=== PATIENT | female | born 1965 | race Two or more races ===

== ENCOUNTER 2024-08-14 15:24 | Emergency (ER) | payer MEDICAID, SELFPAY ==
[2024-08-14] VITALS (11 sets, daily range): BP systolic 97–179; BP diastolic 63–130; PULSE 108–148; RESP 16–24; TEMP 36.7–38.2; O2SAT 93–99; BMI 61.9
--- NOTE | 2024-08-14 15:54 | XR_ITS ---
Examination: CT lumbar spine, without contrast. 2-D sagittal reconstructions. 2-D coronal reconstructions. 3-D reconstructions. Date and time of exam:August 14, 2024 1558 hours INDICATIONS: Onset lower back pain today CTDI: vol (mGy):56.1 DLP: (mGycm):1895 Technique: Multiple 1.25 mm axial sections of the lumbar spine without intravenous contrast have been obtained. 2-D sagittal and coronal reconstructions have been obtained. 3-D reconstructions have been obtained. Low dose protocols were performed. One or more of the following dose reduction techniques were used; automated exposure control, adjustment of the mA and/or KV according to patient size, use of iterative reconstruction technique. Findings: Severe osteopenia Mild to moderate diffuse lumbar disc narrowing most prominent L2-L3 Grade 1 anterolisthesis L4 on L5 No lumbar vertebral body compression fracture Lumbar pedicles, laminae, transverse and posterior spinous processes intact L5-S1 no disc protrusion L4-L5 2 mm central lumbar disc bulge More cephalad levels unremarkable Incidental note 1 mm right renal calculus and mild to moderate right hydronephrosis IMPRESSION: Diffuse [id number] lumbar degenerative disc disease most prominent L2-L3 1 mm right renal calculus Mild to moderate right hydronephrosis, consider CT scan abdomen pelvis without contrast follow-up
--- NOTE | 2024-08-14 15:54 | EKG_ITS ---
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
--- NOTE | 2024-08-14 15:55 | PD.EDRME ---
Rapid Medical Screening Exam RME Arrival date/time: 08/14/24 15:24 59-year-old female with medical history significant for A-fib presents emergency department complaints of lower back pain nausea and vomiting Chief Complaint: Back Pain/Injury Time Seen by Provider: 08/14/24 15:34
--- NOTE | 2024-08-14 16:21 | PC.NURSE ---
pt. here from home to room 10, pt. states she was outside talking to her neighbor and her lower back pain started pt. states the pain is worse when she is breathing. Pt. states she has vomited X 4 today. No s/s of distress. Pt. states she has a history of asthma, since she was 16.
[2024-08-14] MEDS: METOCLOPRAMIDE INJ 5 MG/ML VIAL 2 ML 10 MG IM (16:30)
[2024-08-14] MEDS: HYDROcodone/APAP 5/325 TABLET 1 TAB PO (16:32)
--- NOTE | 2024-08-14 16:37 | XR_ITS ---
Examination: CT abdomen and pelvis without contrast. Coronal 3-D reconstructions. Sagittal 2-D reconstructions. Date and time of exam:August 14, 2024 1702 hrs. Indications: Right flank pain this week, right hydronephrosis on CT examination of the lumbar spine today CTDI: vol (mGy): 23 DLP: (mGycm): 1495 Technique: Axial images of the abdomen have been obtained, 3 mm slice thickness Intravenous contrast material has not been administered. Low dose protocols were performed. One or more of the following dose reduction techniques were used; automated exposure control, adjustment of the mA and/or KV according to patient size, use of iterative reconstruction technique. Findings: No focal liver or splenic lesions Absent gallbladder No pancreatic mass Normal adrenal glands Moderate right hydronephrosis with perinephric stranding secondary to 11 mm proximal right ureteral calculus Aorta normal size 3 cm umbilical hernia which contains small bowel but no incarcerated bowel Fat-containing umbilical hernia sac in the subcutaneous tissue measures up to 5.4 cm in dimension Urinary bladder intact no bladder calculi Moderate osteopenia Impression: Moderate right hydronephrosis secondary to 11 mm proximal right ureteral calculus 3 cm umbilical hernia containing small bowel but no incarcerated bowel or bowel obstruction
--- NOTE | 2024-08-14 16:38 | PD.EDADULT ---
ED General RME/HPI General Chief complaint: Back Pain/Injury Stated complaint: BACK PAIN INCRASED WITH BREATHING Time Seen by Provider: 08/14/24 15:34 Arrival date/time: 08/14/24 15:24 CC: Right low back/flank pain HPI abrupt onset this morning resulting in nausea vomiting unrelenting pain a 6 to an 8 on a 10 scale. Patient states she is no longer nauseated. Patient denies painful urination bloody urination prior history of similar events diarrhea constipation chest pain or shortness of breath. RME / HPI RME / HPI narrative: 08/14/24 15:24 59-year-old female with medical history significant for A-fib presents emergency department complaints of lower back pain nausea and vomiting Related Data Home Medications ?Medication ?Instructions ?Recorded ?Confirmed lisinopril 5 mg tablet 5 mg PO QDAY 08/14/24 08/14/24 metoprolol tartrate 50 mg tablet 50 mg PO QDAY 08/14/24 08/14/24 Previous Rx's ?Medication ?Instructions ?Recorded diltiazem HCl 30 mg tablet 30 mg PO QID #120 tabs 05/02/24 Allergies Allergy/AdvReac Type Severity Reaction Status Date / Time No Known Allergies Allergy Verified 08/14/24 15:27 Review of Systems Review of Systems Narrative Review of Systems: GEN: No fever, no chills, no weight loss EYES: No discharge, no visual changes, no pain HEENT: No ear pain, no congestion, no sore throat PULM: No shortness of breath, no cough, no congestion CV: No chest pain, no dyspnea on exertion, no palpitations GI: No nausea, no vomiting, no diarrhea, no pain, no constipation : No frequency, no urgency, no dysuria MUSC/SKEL: No joint pain, + back pain/flank pain (right) SKIN: No rash PSYCH: No hallucinations, no depression HEME/LYMPH: No easy bleeding or bruising tendencies NEURO: No weakness, no headache ED Exam Narrative Physical exam: [General: Morbidly obese in mild discomfort but not in any acute distress Head normocephalic HEENT: Eyes: Pupils are PERRLA EOMs are intact nose no rhinorrhea mouth pink moist membranes uvula is midline swallow symmetrical phonation is normal other subsystems HEENT are within acceptable limits Neck is supple nontender Chest equal chest rise nontender to palpation Respiratory: Clear to auscultation no wheezes crackles or rubs CV: Rate rhythm is regular no murmurs rubs or clicks Abdomen is grossly distended secondary to body habitus soft nontender no masses positive bowel sounds all 4 quadrants Back: Right CVA tenderness no left CVA tenderness Skin: Intact no petechiae rash induration ulceration or crepitus Extremities: Moving all extremity against resistance cap refill less than 2 seconds neurosensory intact Neuro: Awake alert oriented x3 Glascow coma 15 no focal deficits] Course Quality Measures none Orders Category Date Time Status EKG (ED ONLY) *Do not use* NOW Care 08/14/24 15:54 Completed Insert IV NOW Care 08/14/24 21:09 Completed Transfer to another facility [Transfer/Discharge] Stat Discharge 08/14/24 18:[address] abdomen pelvis wo con Stat Exams 08/14/24 16:[address] lumbar spine wo con Stat Exams 08/14/24 15:54 Completed EKG (ED Only) Stat Exams 08/14/24 15:54 Draft B-Type Natriuretic Peptide Stat Lab 08/14/24 16:37 Completed CBC Stat Lab 08/14/24 16:37 Completed Comprehensive Metabolic Panel Stat Lab 08/14/24 16:37 Completed Drug Screen,Urine Stat Lab 08/14/24 19:55 Completed Lipase Stat Lab 08/14/24 16:37 Completed Partial Thromboplastin Time Stat Lab 08/14/24 16:37 Completed Prothrombin Time with INR Stat Lab 08/14/24 16:37 Completed Troponin I Stat Lab 08/14/24 16:37 Completed Urinalysis Stat Lab 08/14/24 19:55 Completed Acetaminophen Tab [Tylenol Tab] Med 08/14/24 19:24 Discontinued 650 mg PO X1 ONE Diltiazem Inj [Cardizem Inj] Med 08/14/24 21:09 Discontinued 30 mg IV X1 ONE Diltiazem [Cardizem] Med 08/14/24 21:22 Discontinued 30 mg PO X1 ONE HYDROcodone*/APAP 5/325 [[place] 5/325] Med 08/14/24 15:54 Discontinued 1 tab PO X1 ONE Ketorolac Inj [Toradol Inj] Med 08/14/24 19:24 Discontinued 30 mg IM X1 ONE Metoclopramide Inj [Reglan Inj] Med 08/14/24 15:54 Discontinued 10 mg IM X1 ONE Metoprolol Tartrate [Lopressor] Med 08/14/24 21:22 Discontinued 25 mg PO X1 ONE Sodium Chloride 0.9% 1000 ml [Ns] 1,000 ml Med 08/14/24 22:43 Discontinued IV 100 mls/hr Sodium Chloride 0.9% 1000 ml [Ns] 1,000 ml Med 08/14/24 22:43 Discontinued IV 999 mls/hr Sodium Chloride 0.9% 500 ml [Ns] 500 ml Med 08/14/24 23:39 Discontinued IV 999 mls/hr Tamsulosin HCl [Flomax] Med 08/14/24 23:39 Discontinued 0.4 mg PO X1 ONE cefTRIAXone/D5w 1gm IV premix [Rocephin/D5w 1gm IV Med 08/14/24 21:56 Discontinued premix] 50 ml IV X1 Vital Signs Vital signs: Vital Signs Temperature 98.0 F 08/14/24 15:49 Pulse Rate 120 H 08/14/24 15:49 Respiratory Rate 24 H 08/14/24 15:49 Blood Pressure 164/124 H 08/14/24 15:49 Pulse Oximetry (%) 97 08/14/24 15:49 Oxygen Delivery Method Room Air 08/14/24 15:49 [facility] Patient data External records reviewed:: [facility] previous records Clinical information provided by:: patient Social determinants that could affect healthcare access:: none Patient has the following chronic illnesses:: Morbid obesity hypertension depression How is presenting disease/condition affected by chronic disease/condition?: uneffected by Evaluation data The following diagnostics were reviewed and interpreted by me:: lab results and radiology exam(s) Lab and/or radiology exams considered but not ordered:: See [facility] Interpretation Summary: 1.1 cm stone proximally with hydro Medications Medications considered but not ordered:: None Medication administrations:: Medication Administration History Discontinued Medications Acetaminophen (Acetaminophen 325 Mg Tablet) 650 mg PO X1 ONE Stop: 08/14/24 19:25 Last Admin: 08/14/24 19:32 Dose: 650 mg Documented By: CVL Hydrocodone Bitart/Acetaminophen (Hydrocodone/Apap 5/325 Tablet) 1 tab PO X1 ONE Stop: 08/14/24 15:55 Last Admin: 08/14/24 16:32 Dose: 1 tab Documented By: ED Diltiazem HCl (Diltiazem Inj 5 Mg/Ml Vial 5 Ml) 30 mg IV X1 ONE Stop: 08/14/24 21:10 Last Admin: 08/14/24 21:14 Dose: 30 mg Documented By: CVL Diltiazem HCl (Diltiazem 30 Mg Tablet) 30 mg PO X1 ONE Stop: 08/14/24 21:23 Last Admin: 08/14/24 21:35 Dose: 30 mg Documented By: CVL Ceftriaxone Sodium/Dextrose (Rocephin/D5w 1gm Iv Premix) 50 mls @ 100 mls/hr IV X1 ONE Stop: 08/14/24 22:25 Last Infusion: 08/14/24 22:37 Dose: Infused Documented By: Admin: 08/14/24 22:04 Dose: 100 mls/hr Documented By: CVL Sodium Chloride (Ns) 1,000 mls @ 999 mls/hr IV .Q1H1M ONE Stop: 08/14/24 23:43 Last Infusion: 08/15/24 00:14 Dose: Infused Documented By: Admin: 08/14/24 22:50 Dose: 999 mls/hr Documented By: CVL Sodium Chloride (Ns) 1,000 mls @ 100 mls/hr IV .Q10H ONE Stop: 08/15/24 08:42 Last Admin: 08/15/24 01:13 Dose: 100 mls/hr Documented By: CVL Sodium Chloride (Ns) 500 mls @ 999 mls/hr IV .Q31M ONE Stop: 08/15/24 00:09 Last Infusion: 08/15/24 01:02 Dose: Infused Documented By: Admin: 08/15/24 00:19 Dose: 999 mls/hr Documented By: CVL Ketorolac Tromethamine (Ketorolac Inj 60 Mg/2 Ml Vial) 30 mg IM X1 ONE Stop: 08/14/24 19:25 Last Admin: 08/14/24 19:35 Dose: 30 mg Documented By: CVL Metoclopramide HCl (Metoclopramide Inj 5 Mg/Ml Vial 2 Ml) 10 mg IM X1 ONE; Protocol Stop: 08/14/24 15:55 Last Admin: 08/14/24 16:30 Dose: 10 mg Documented By: ED Metoprolol Tartrate (Metoprolol Tartrate 25 Mg Tablet) 25 mg PO X1 ONE Stop: 08/14/24 21:23 Last Admin: 08/14/24 21:32 Dose: 25 mg Documented By: CVL Tamsulosin HCl (Tamsulosin Hcl 0.4 Mg Capsule) 0.4 mg PO X1 ONE Stop: 08/14/24 23:40 Last Admin: 08/15/24 00:17 Dose: 0.4 mg Documented By: CVL None Consultations Consultation(s) initiated? (list below): No Diagnosis Differential Diagnosis ED Complaint MDM: UTI hydro nephrosis, urolithiasis Most likely diagnosis given after review of the tests above:: Urolithiasis hydronephrosis UTI Admission Indicated Admission indicated?: not indicated Explain why admission is indicated or not indicated:: Transfer Admission Request Was there a request for admission?: No Disposition Plan Disposition Plan: Transfer Medical Decision Making Differential Diagnosis Differential Diagnosis: UTI hydro nephrosis, urolithiasis Lab Data 08/14/24 16:37 08/14/24 16:37 Labs: Lab Results 08/14/24 08/14/24 Range/Units 16:37 19:55 WBC 15.2 H (3.6-11.0) Thou/mm3 RBC 4.87 (4.00-5.20) Miln/mm3 Hgb 12.3 (12.0-16.0) g/dL Hct 38.4 (36.0-46.0) % MCV 79 L (80-100) fL MCH 25.3 (25.0-35.0) pg MCHC 32.0 (31.0-37.0) g/dl RDW Std Deviation 48.1 H (36.4-46.3) fL Plt Count 323 (140-440) Thou/mm3 Neut % (Auto) 84 H (37-80) % Lymph % (Auto) 10 (10-50) % Gibson % (Auto) 5 (0-12) % Eos % (Auto) 1 (0-10) % Baso % (Auto) 0 (0-2.5) % Neut # (Auto) 12.7 H (1.8-7.7) Thou/mm3 Lymph # (Auto) 1.5 (1.0-4.8) Thou/mm3 Gibson # (Auto) 0.8 (0.0-0.8) Thou/mm3 Eos # (Auto) 0.1 (0.0-0.5) Thou/mm3 Baso # (Auto) 0.0 (0.0-0.2) Thou/mm3 Immature Gran # (Auto) 0.09 H (0.00-0.00) Thou/mm3 Absolute Nucleated RBC 0.00 (0.00-0.00) Thou/mm3 Immature Gran % 1 H (0-0) % Nucleated RBC % 0 (0) /100 WBC PT 12.4 H (9.0-12.2) Seconds INR 1.1 (0.9-1.3) APTT 30.5 (22.0-36.0) Seconds Sodium 138 (136-145) mMol/L Potassium 3.8 (3.4-5.1) mMol/L Chloride 104 (98-107) mMol/L Carbon Dioxide 23.7 (20.0-31.0) mMol/L Anion Gap 10 (7-16) BUN 10 (9-23) mg/dL Creatinine 1.1 (0.6-1.3) mg/dL Estim Creat Clear Calc 81.5 (>60) mL/min eGFR 58 L (60 - ) See Note BUN/Creatinine Ratio 9 L (12-20) Ratio Glucose 126 H (74-106) mg/dL Calculated Osmolality 276 (275-295) Calcium 9.5 (8.3-10.6) mg/dL Corrected Calcium 9.5 (8.5-10.1) mg/dL Total Bilirubin 0.8 (0.3-1.2) mg/dL AST 18 (0-34) U/L ALT 16 (10-49) U/L Alkaline Phosphatase 150 H (46-116) U/L Troponin I < 0.002 (0.0-0.045) ng/mL B-Natriuretic Peptide 119 H (0-100) pg/mL Total Protein 7.4 (5.7-8.2) gm/dL Albumin 4.5 (3.4-4.8) gm/dL Globulin 2.9 (2.3-3.5) gm/dL Albumin/Globulin Ratio 1.6 (1.2-2.2) Lipase 33 (12-53) U/L Ur Collection Type Clean Catch Urine Color Lt-Yellow (Lt Yel-Yel) Urine Clarity Turbid A (Clear/Hazy) Urine pH 6.0 (5.0-7.0) Ur Specific [place] 1.017 (1.001-1.035) Urine Protein Negative (Neg - Trace) Urine Glucose (UA) Negative (Negative) Urine Ketones 1+ A (Negative) Urine Blood Trace (Negative) Urine Nitrite Positive (Negative) Urine Bilirubin Negative (Negative) Urine Urobilinogen (Auto) Negative (0.0-1.0) mg/dL Ur Leukocyte Esterase Positive (Negative) Urine RBC 12 H (0-3) /hpf Urine WBC 44 H (0-5) /hpf Ur Squamous Epith Cells 3 (0-5) /hpf Urine Bacteria None (None) Urine Opiates Screen Positive A (Negative) Urine Fentanyl Screen Negative (Negative) Ur Barbiturates Screen Negative (Negative) U Amphetamin/Meth Scrn Negative (Negative) U Benzodiazepines Scrn Negative (Negative) U Cocaine Metab Screen Negative (Negative) U Marijuana (THC) Screen Negative (Negative) Discharge Plan Plan Patient Disposition: [facility] [place] Pt Being Transferred to: [facility] Service Needed for Transfer: Urology Patient condition on transfer: Stable Prescriptions/Referrals Prescriptions/Med Rec: No Action diltiazem HCl 30 mg tablet 30 mg PO QID Qty: 120 0RF lisinopril 5 mg Tablet 5 mg PO QDAY metoprolol tartrate 50 mg Tablet 50 mg PO QDAY Referrals: No Primary/Family,Physician [Primary Care Provider] - In 1 week Problem List Clinical Impression: Hydronephrosis, Calculus of proximal right ureter, UTI (urinary tract infection), Atrial fibrillation with rapid ventricular response Patient/Caregiver Discharge Instructions Print Language: Bulgarian Stand Alone Forms: Isabel Award Info., Patient Portal Info Letter
[2024-08-14 16:45] LABS: Basophils % (Auto) 0 % (0-2.5); Eosinophils # (Auto) 0.1 Thou/mm3 (0.0-0.5); Eosinophils % (Auto) 1 % (0-10); Hematocrit 38.4 % (36.0-46.0); Hemoglobin 12.3 g/dL (12.0-16.0); Immature Granulocytes % (Auto) 1 % (0-0); Immature Granulocytes Auto 0.09 Thou/mm3 (0.00-0.00); Lymphocytes # (Auto) 1.5 Thou/mm3 (1.0-4.8); Lymphocytes % (Auto) 10 % (10-50); Mean Corpuscular Hemoglobin 25.3 pg (25.0-35.0); Mean Corpuscular Volume 79 fL (80-100); Monocytes # (Auto) 0.8 Thou/mm3 (0.0-0.8); Monocytes % (Auto) 5 % (0-12); Neutrophils # (Auto) 12.7 Thou/mm3 (1.8-7.7); Neutrophils % (Auto) 84 % (37-80); Nucleated Red Blood Cell % 0 /100 WBC (0); Platelet Count 323 Thou/mm3 (140-440); RDW Standard Deviation 48.1 fL (36.4-46.3); Red Blood Count 4.87 Miln/mm3 (4.00-5.20); White Blood Count 15.2 Thou/mm3 (3.6-11.0)
[2024-08-14 17:03] LABS: INR 1.1 (0.9-1.3); Partial Thromboplastin Time 30.5 Seconds (22.0-36.0); Prothrombin Time 12.4 Seconds (9.0-12.2)
[2024-08-14 17:04] LABS: B-Type Natriuretic Peptide 119 pg/mL (0-100)
[2024-08-14 17:06] LABS: Alanine Aminotransferase 16 U/L (10-49); Albumin, Serum 4.5 gm/dL (3.4-4.8); Albumin/Globulin Ratio 1.6 (1.2-2.2); Alkaline Phosphatase 150 U/L (46-116); Anion Gap 10 (7-16); Aspartate Amino Transferase 18 U/L (0-34); BUN/Creatinine Ratio 9 Ratio (12-20); Bilirubin,Total 0.8 mg/dL (0.3-1.2); Blood Urea Nitrogen 10 mg/dL (9-23); Calcium 9.5 mg/dL (8.3-10.6); Calcium (Corrected) 9.5 mg/dL (8.5-10.1); Carbon Dioxide 23.7 mMol/L (20.0-31.0); Chloride 104 mMol/L (98-107); Creatinine (Component) 1.1 mg/dL (0.6-1.3); Estimated Creatinine Clearance 81.5 mL/min (>60); Globulin 2.9 gm/dL (2.3-3.5); Glucose 126 mg/dL (74-106); Lipase 33 U/L (12-53); Osmolality,Calculated 276 (275-295); Potassium 3.8 mMol/L (3.4-5.1); Sodium 138 mMol/L (136-145); Total Protein 7.4 gm/dL (5.7-8.2); Troponin I < 0.002 ng/mL (0.0-0.045); eGFR 58 See Note
--- NOTE | 2024-08-14 18:54 | PC.NURSE ---
2 warm blankets given, pt. wants to warm up before IV is attempted.
--- NOTE | 2024-08-14 19:03 | PC.CM ---
1818 I received a referral to transfer patient needing for urology services. Patient has a kidney stone. I started packet with CD and faxed information to [facility]. I handed off to ED charge nurse.
[2024-08-14] MEDS: ACETAMINOPHEN 325 MG TABLET 650 MG PO (19:32)
[2024-08-14] MEDS: KETOROLAC INJ 60 MG/2 ML VIAL 30 MG IM (19:35)
[2024-08-14 20:06] LABS: Collection Type, Urine Clean Catch
[2024-08-14 20:17] LABS: Bilirubin,Urine Negative (Negative); Blood,Urine Trace (Negative); Clarity,Urine Turbid (Clear/Hazy); Color,Urine Lt-Yellow (Lt Yel-Yel); Glucose, Urine Negative (Negative); Ketones,Urine 1+ (Negative); Leukocyte Esterase,Urine Positive (Negative); Nitrite,Urine Positive (Negative); Protein,Urine Negative (Neg - Trace); RBC,Urine 12 /hpf (0-3); Specific Gravity,Urine 1.017 (1.001-1.035); Squamous Epithelial Cell,Urine 3 /hpf (0-5); Urobilinogen,Urine Negative mg/dL (0.0-1.0); WBC,Urine 44 /hpf (0-5)
[2024-08-14 21:14] LABS: Amphetamine/Methamp Scrn,U Negative (Negative); Barbiturate Screen,Urine Negative (Negative); Benzodiazepines Screen,Urine Negative (Negative); Benzoylecgonine Screen, Ur Negative (Negative); Fentanyl Screen,Urine Negative (Negative); Opiate Screen,Urine Positive (Negative); THC Screen,Urine Negative (Negative)
[2024-08-14] MEDS: DILTIAZEM INJ 5 MG/ML VIAL 5 ML 30 MG IV (21:14)
[2024-08-14] MEDS: METOPROLOL TARTRATE 25 MG TABLET PO (21:32)
[2024-08-14] MEDS: DILTIAZEM 30 MG TABLET PO (21:35)
[2024-08-14] MEDS: cefTRIAXone/D5w 1gm IV premix 50 ML IV (22:04)
--- NOTE | 2024-08-14 22:47 | EDNOTE_ITS ---
Emergency Room Addendum <Anai Yates MD - Last Filed: 08/15/24 02:31> Addendum Narrative: 2300 Care assumed from (emergency physician). Past medical, surgical, social and family history reviewed. Vitals and home medications reviewed. Results and treatment plan discussed. They will assume the care of the patient at this time and will follow the patient, pending . 2300: Discussed with [facility], pending call back. 2235 Dr. Robledo, Urologist on-call at [place] made aware of the patient?s HPI, PMHx, lab and/or radiology results. Discussed treatment plan. Agrees to Will consult. Requests transfer/admission to the hospitalist. [id number]: Hospitalist paged. CRITICAL CARE: The high probability of sudden, clinically significant deterioration in the patient?s condition required the highest level of my preparedness to intervene urgently. The services I provided to this patient were to treat and/or prevent clinically significant deterioration. Services included the following: chart data review, reviewing nursing notes and/or old charts, documentation time, resourcing consultant collaboration regarding findings and treatment options, medication orders and management, direct patient care, vital sign assessments and ordering, interpreting and reviewing diagnostic studies and lab tests. Aggregate critical care time includes only time during which I was engaged in work directly related to the patient?s care, as described above, whether at bedside or elsewhere in the Emergency Department. It did not include time spent performing other reported procedures or the services of residents, students, nurses or physician assistants. 45 mins Observation Note- Pending transfer Patient was placed in observation infected stone, awaiting transfer. <Katerin Pickering - Last Filed: 08/15/24 00:27> Addendum Narrative: 2300 Care assumed from Rojelio Castorena NP. Past medical, surgical, social and family history reviewed. Vitals and home medications reviewed. Results and treatment plan discussed. I will assume the care of the patient at this time and will follow the patient, pending transfer. 2300: Discussed with [facility], pending call back. 2235 Dr. Robledo, Urologist on-call at [place] made aware of the patient?s HPI, PMHx, lab and/or radiology results. Discussed treatment plan. Agrees to Will consult. Requests transfer/admission to the hospitalist. 2340: Hospitalist paged. 0022: Case d/w Dr. Castro who has accepted patient for transfer. CRITICAL CARE: The high probability of sudden, clinically significant deterioration in the patient?s condition required the highest level of my preparedness to intervene urgently. The services I provided to this patient were to treat and/or prevent clinically significant deterioration. Services included the following: chart data review, reviewing nursing notes and/or old charts, documentation time, resourcing consultant collaboration regarding findings and treatment options, medication orders and management, direct patient care, vital sign assessments and ordering, interpreting and reviewing diagnostic studies and lab tests. Aggregate critical care time includes only time during which I was engaged in work directly related to the patient?s care, as described above, whether at bedside or elsewhere in the Emergency Department. It did not include time spent performing other reported procedures or the services of residents, students, nurses or physician assistants. 45 mins Observation Note- Pending transfer Patient was placed in observation infected stone, awaiting transfer. Attestation <Katerin Pickering - Last Filed: 08/15/24 00:27> Attestation ? Scribe Attestation: I, Rashid Pickering, am scribing for and in the presence of Dr. John. Provider Notation: Although this document has been carefully reviewed, there may still be some phonetic and other typographical errors. These errors are purely grammatical due to imperfections in the software program and should not be construed in any way to compromise the substance of the patient's medical care during this visit.
[2024-08-14] MEDS: SODIUM CHLORIDE 0.9% 1000 ML 1,000 ML 999 ML IV (22:50)
--- NOTE | 2024-08-14 23:40 | PC.NURSE ---
[facility] NURSE THEY RECEIVED PKT BUT HAD NOT RECEIVED CALL FROM TRANSFER NURSE. 223 CONTACTED [facility]. 224 CONTACTED MARIA R MATTA, TIERRAT SENT.
[2024-08-15 00:12] VITALS: BP 106/78; PULSE 115; RESP 18
[2024-08-15] MEDS: TAMSULOSIN HCL 0.4 MG CAPSULE PO (00:17)
[2024-08-15] MEDS: SODIUM CHLORIDE 0.9% 500 ML 500 ML 999 ML IV (00:19)
[2024-08-15 01:07] VITALS: BP 101/65; PULSE 113; RESP 16; O2SAT 95
[2024-08-15] MEDS: SODIUM CHLORIDE 0.9% 1000 ML 1,000 ML 100 ML IV (01:13)
[2024-08-15 02:18] VITALS: BP 103/73; PULSE 117; RESP 18; TEMP 37.1; O2SAT 95
== END 2024-08-15 02:30 | disposition short-term general hospital (02) ==
PROVIDERS: Nurse Practitioner Primary Care; Emergency Provider Emergency Medicine
DX: N13.6 Pyonephrosis (principal); I48.91 Unspecified atrial fibrillation
CPT/HCPCS: 36415; 72131; 74176; 80053; 80307; 81001; 83690; 83880; 84484; 85025; 85610; 85730; 93005; 96361; 96365; 96372; 99291; J0696; J1885; J2765; J3490; J7030; J7040; A9270

== ENCOUNTER 2024-09-04 15:15 | Inpatient (IN) | payer MEDICAID, SELFPAY ==
[2024-09-04] VITALS (24 sets, daily range): BP systolic 112–158; BP diastolic 65–116; PULSE 78–203; RESP 10–24; TEMP 36.8–39.1; O2SAT 89–99; BMI 66.4
--- NOTE | 2024-09-04 15:32 | PD.EDADULT ---
ED General RME/HPI General Chief complaint: Shortness of Breath/Dyspnea Stated complaint: SOB Time Seen by Provider: 09/04/24 15:29 Arrival date/time: 09/04/24 15:15 CC: Cough, wheezing, nausea vomiting palpitations HPI onset yesterday, patient states other family members are sick with similar symptoms. Patient denies chest pain diarrhea painful urination bloody urination. Patient was seen here in the emergency recently for urolithiasis with hydro ureter, was transferred to [facility] for urology stent placement. Related Data Home Medications ?Medication ?Instructions ?Recorded ?Confirmed lisinopril 5 mg tablet 5 mg PO QDAY 08/14/24 08/14/24 metoprolol tartrate 50 mg tablet 50 mg PO QDAY 08/14/24 08/14/24 Previous Rx's ?Medication ?Instructions ?Recorded diltiazem HCl 30 mg tablet 30 mg PO QID #120 tabs 05/02/24 Allergies Allergy/AdvReac Type Severity Reaction Status Date / Time No Known Allergies Allergy Verified 08/14/24 15:27 Review of Systems Review of Systems Narrative Review of Systems: GEN: + fever, no chills, no weight loss EYES: No discharge, no visual changes, no pain HEENT: No ear pain, no congestion, no sore throat PULM: No shortness of breath, + cough, no congestion CV: No chest pain, no dyspnea on exertion, no palpitations GI: + nausea, + vomiting, no diarrhea, no pain, no constipation : No frequency, no urgency, no dysuria MUSC/SKEL: No joint pain, no back pain SKIN: No rash PSYCH: No hallucinations, no depression HEME/LYMPH: No easy bleeding or bruising tendencies NEURO: No weakness, no headache ED Exam Narrative Physical exam: [General: Morbidly obese not in any acute distress Head normocephalic HEENT: Within acceptable limits Neck is supple nontender Chest equal chest rise nontender to palpation Respiratory: Dry nonproductive cough, clear to auscultation no wheezes crackles or rubs CV: Rate rhythm is regular no murmurs rubs or clicks Abdomen is grossly distended secondary to body habitus soft nontender no masses positive bowel sounds all 4 quadrants Back: No CVA tenderness no spinous process tenderness from cervical spine thoracic and lumbar spine Skin: Intact no petechiae rash induration ulceration or crepitus Extremities: Moving all extremity against resistance cap refill less than 2 seconds neurosensory intact Neuro: Awake alert oriented x3 Glascow coma 15 no focal deficits] Course Course Course Narrative: Diltiazem drip ordered at 1600 and started at 1900. Quality Measures none Orders Category Date Time Status Bedside COVID-19 Antigen Test NOW Care 09/04/24 15:32 Active Bedside Influenza A&B Antigen Test NOW Care 09/04/24 15:31 Completed Stripping Shovel Operator STAT Care 09/04/24 16:20 Active Continuous Pulse Oximetry STAT Care 09/04/24 16:20 Completed EKG (ED ONLY) *Do not use* NOW Care 09/04/24 15:41 Completed Insert IV NOW Care 09/04/24 16:20 Active NPO STAT Care 09/04/24 16:20 Active Strict Intake and Output Routine Care 09/04/24 16:20 Ordered EKG (ED Only) Stat Exams 09/04/24 15:41 Draft XR chest 1V SEPSIS PROTOCOL Stat Exams 09/04/24 16:20 Completed B-Type Natriuretic Peptide Stat Lab 09/04/24 17:08 Completed Blood Culture (Lab) Stat Lab 09/04/24 17:08 Received CBC Stat Lab 09/04/24 17:08 Completed Comprehensive Metabolic Panel Stat Lab 09/04/24 17:08 Completed LDH (Lactate Dehydrogenase) Stat Lab 09/04/24 17:08 Completed Lactate (Lactic Acid) Stat Lab 09/04/24 17:08 Completed Lipase Stat Lab 09/04/24 17:08 Completed Magnesium Stat Lab 09/04/24 17:08 Completed Partial Thromboplastin Time Stat Lab 09/04/24 17:08 Completed Phosphorous Stat Lab 09/04/24 17:08 Completed Procalcitonin Stat Lab 09/04/24 17:08 Completed Prothrombin Time with INR Stat Lab 09/04/24 17:08 Completed Troponin I Stat Lab 09/04/24 17:08 Completed Urinalysis Stat Lab 09/04/24 17:20 Completed Urine Culture Stat Lab 09/04/24 17:28 Received Acetaminophen Tab [Tylenol ES Tab] Med 09/04/24 15:30 Discontinued 1,000 mg PO X1 ONE DILTIAZEM in D5W 125 MG Med 09/04/24 16:43 Discontinued 125 mg in 125 ml IV 5 mg/hr Dextrose 5%-Water [D5w] 100 ml Med 09/04/24 17:00 Active Diltiazem Inj [Cardizem Inj] 125 mg IV 5 mg/hr Diltiazem Inj [Cardizem Inj] Med 09/04/24 15:40 Discontinued 25 mg IV X1 ONE Sodium Chloride 0.9% 1000 ml [Ns] 1,000 ml Med 09/04/24 15:40 Discontinued IV 999 mls/hr Sodium Chloride 0.9% 1000 ml [Ns] 1,000 ml Med 09/04/24 16:21 Discontinued IV 999 mls/hr Oxygen Delivery NOW RT 09/04/24 16:20 Active Vital Signs Vital signs: Vital Signs Temperature 102.4 F H 09/04/24 15:17 Pulse Rate 175 H 09/04/24 15:17 Blood Pressure 138/92 H 09/04/24 15:17 Pulse Oximetry (%) 99 09/04/24 15:17 Oxygen Delivery Method Nasal Cannula 09/04/24 15:17 Oxygen Flow Rate 6 09/04/24 15:17 [facility] Patient data External records reviewed:: [facility] previous records and EMS form Clinical information provided by:: patient and EMS Social determinants that could affect healthcare access:: none Patient has the following chronic illnesses:: Morbid obesity, hypertension, kidney stones Review the medical record show the patient was transferred from this facility recently for kidney stones that required stent placement. How is presenting disease/condition affected by chronic disease/condition?: exacerbated by Evaluation data The following diagnostics were reviewed and interpreted by me:: lab results, radiology exam(s) and EKG tracing(s) Lab and/or radiology exams considered but not ordered:: EKG performed at 1604 shows a ventricular rate of 169 QRS of 104 QTc of 353 this is A-fib with RVR. CBC shows a mild leukocytosis of 12.4 no other anemia or thrombocytopenia. Coags within acceptable limits CMP shows a sodium 138 potassium 3.8 chloride of 101 CO2 25.7 BUN of 10 creatinine 1.1 glucose 117 Lactic 1.9 Phos of 1.5 Troponin is negative BNP is 133. Urine shows nitrite negative, leukocyte Estrace positive, WBCs and RBCs, no bacteria but squamous cell COVID and influenza are negative. Interpretation Summary: A-fib RVR with fever no identifiable source Patient started on dill drip at 1900 due to delays by nursing, the patient still continues to have a highly labile heart rate ranging from 1 10-1 30 in spite of being on 10 mg on the drip. Patient is awake alert oriented she has a stable blood pressure, has no complaints of chest pain or palpitations. The patient's case discussed with Dr. Cardona resident for Dr. Antwon Campbell's agrees to accept the patient for admission Medications Medications considered but not ordered:: None Medication administrations:: Medication Administration History Diltiazem HCl 125 mg/ Dextrose 125 mls @ 5 mls/hr IV .Q24H BLAKE; Protocol Stop: 10/04/24 16:59 Last Infusion: 09/04/24 20:00 Dose: 10 mg/hr, 10 mls/hr Documented By: Admin: 09/04/24 19:15 Dose: 5 mg/hr, 5 mls/hr Documented By: KG Discontinued Medications Acetaminophen (Acetaminophen 500 Mg Tablet) 1,000 mg PO X1 ONE Stop: 09/04/24 15:31 Last Admin: 09/04/24 15:46 Dose: 1,000 mg Documented By: NAOMIE Diltiazem HCl (Diltiazem Inj 5 Mg/Ml Vial 5 Ml) 25 mg IV X1 ONE Stop: 09/04/24 15:41 Last Admin: 09/04/24 15:47 Dose: 25 mg Documented By: NAOMIE Sodium Chloride (Ns) 1,000 mls @ 999 mls/hr IV .Q1H1M ONE Stop: 09/04/24 16:40 Last Infusion: 09/04/24 19:52 Dose: Infused Documented By: Admin: 09/04/24 16:02 Dose: 999 mls/hr Documented By: NAOMIE Sodium Chloride (Ns) 1,000 mls @ 999 mls/hr IV .Q1H1M ONE Stop: 09/04/24 17:21 Last Admin: 09/04/24 19:15 Dose: 999 mls/hr Documented By: KG Diltiazem HCl (Diltiazem In D5w 125 Mg) 125 mg in 125 mls @ 5 mls/hr IV .Q24H BLAKE; Protocol Stop: 10/04/24 16:42 Last Admin: 09/04/24 19:26 Dose: Not Given Documented By: KG Non-Admin Reason: Discontinued None Consultations Consultation(s) initiated? (list below): No Diagnosis Differential Diagnosis ED Complaint MDM: ACS MS pneumonia Most likely diagnosis given after review of the tests above:: A-fib RVR Admission Indicated Admission indicated?: not indicated Explain why admission is indicated or not indicated:: Requires further medical management Admission Request Was there a request for admission?: No Disposition Plan Disposition Plan: Admit Medical Decision Making Differential Diagnosis Differential Diagnosis: ACS MS pneumonia Lab Data 09/04/24 17:08 09/04/24 17:08 Labs: Lab Results 09/04/24 09/04/24 Range/Units 17:08 17:20 WBC 12.8 H (3.6-11.0) Thou/mm3 RBC 4.75 (4.00-5.20) Miln/mm3 Hgb 12.0 (12.0-16.0) g/dL Hct 37.7 (36.0-46.0) % MCV 79 L (80-100) fL MCH 25.3 (25.0-35.0) pg MCHC 31.8 (31.0-37.0) g/dl RDW Std Deviation 49.0 H (36.4-46.3) fL Plt Count 360 D (140-440) Thou/mm3 Neut % (Auto) 77 (37-80) % Lymph % (Auto) 14 (10-50) % [place] % (Auto) 7 (0-12) % Eos % (Auto) 2 (0-10) % Baso % (Auto) 0 (0-2.5) % Neut # (Auto) 9.8 H (1.8-7.7) Thou/mm3 Lymph # (Auto) 1.8 (1.0-4.8) Thou/mm3 [place] # (Auto) 0.9 H (0.0-0.8) Thou/mm3 Eos # (Auto) 0.2 (0.0-0.5) Thou/mm3 Baso # (Auto) 0.0 (0.0-0.2) Thou/mm3 Immature Gran # (Auto) 0.07 H (0.00-0.00) Thou/mm3 Absolute Nucleated RBC 0.00 (0.00-0.00) Thou/mm3 Immature Gran % 1 H (0-0) % Nucleated RBC % 0 (0) /100 WBC PT 13.0 H (9.0-12.2) Seconds INR 1.2 (0.9-1.3) APTT 32.0 (22.0-36.0) Seconds Sodium 138 (136-145) mMol/L Potassium 3.8 (3.4-5.1) mMol/L Chloride 101 (98-107) mMol/L Carbon Dioxide 25.7 (20.0-31.0) mMol/L Anion Gap 11 (7-16) BUN 10 (9-23) mg/dL Creatinine 1.1 (0.6-1.3) mg/dL Estim Creat Clear Calc 85.4 (>60) mL/min eGFR 58 L (60 - ) See Note BUN/Creatinine Ratio 9 L (12-20) Ratio Glucose 117 H (74-106) mg/dL Calculated Osmolality 275 (275-295) Lactic Acid 1.9 (0.4-2.0) mMol/L Calcium 9.2 (8.3-10.6) mg/dL Corrected Calcium 9.2 (8.5-10.1) mg/dL Phosphorus 1.5 L (2.4-5.1) mg/dL Magnesium 1.7 (1.6-2.6) mg/dL Total Bilirubin 1.0 (0.3-1.2) mg/dL AST 15 (0-34) U/L ALT 12 (10-49) U/L Alkaline Phosphatase 133 H (46-116) U/L Lactate Dehydrogenase 349 H (120-246) U/L Troponin I < 0.020 (0.0-0.045) ng/mL B-Natriuretic Peptide 133 H (0-100) pg/mL Total Protein 7.5 (5.7-8.2) gm/dL Albumin 4.2 (3.4-4.8) gm/dL Globulin 3.3 (2.3-3.5) gm/dL Albumin/Globulin Ratio 1.3 (1.2-2.2) Lipase 30 (12-53) U/L Procalcitonin 0.20 (0.0-0.49) ng/ml Ur Collection Type Clean Catch Urine Color Yellow (Lt Yel-Yel) Urine Clarity Hazy (Clear/Hazy) Urine pH 6.5 (5.0-7.0) Ur Specific [place] 1.023 (1.001-1.035) Urine Protein 1+ A (Neg - Trace) Urine Glucose (UA) Negative (Negative) Urine Ketones Negative (Negative) Urine Blood 2+ A (Negative) Urine Nitrite Negative (Negative) Urine Bilirubin Negative (Negative) Urine Urobilinogen (Auto) Negative (0.0-1.0) mg/dL Ur Leukocyte Esterase Positive (Negative) Urine RBC 155 H (0-3) /hpf Urine WBC 119 H (0-5) /hpf Ur Squamous Epith Cells 6 H (0-5) /hpf Urine Bacteria 1+ A (None) Hyaline Casts < 1 (0-1) /hpf Discharge Plan Plan Patient Disposition: HOME (Self Care) Patient condition on transfer: Stable Prescriptions/Referrals Prescriptions/Med Rec: No Action diltiazem HCl 30 mg tablet 30 mg PO QID Qty: 120 0RF lisinopril 5 mg Tablet 5 mg PO QDAY metoprolol tartrate 50 mg Tablet 50 mg PO QDAY Referrals: No Primary/Family,Physician [Primary Care Provider] - In 1 week Problem List Clinical Impression: Atrial fibrillation with RVR, Nausea & vomiting Patient/Caregiver Discharge Instructions Print Language: Surinamese Stand Alone Forms: Isabel Award Info., Patient Portal Info Letter PA/STERILE PROCESS TECH Supervising Physician PA/STERILE PROCESS TECH Supervising Physician: Rojelio Castorena ENP
--- NOTE | 2024-09-04 15:41 | EKG_ITS ---
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: : 1965 Requested By: Rojelio Clarke Order Number: [id number] Reading MD: Rojelio Clarke Measurements Intervals [place] Rate: 169 P: MI: QRS: -46 QRSD: 104 T: 19 QT: 261 QTc: 438 Interpretive Statements ATRIAL FIBRILLATION WITH RAPID VENTRICULAR RESPONSE LOW QRS VOLTAGE [QRS DEFLECTION < 0.5/1.0 mV IN LIMB/CHEST LEADS] POSSIBLE ANTERIOR MYOCARDIAL INFARCTION , PROBABLY OLD [30 ms Q WAVE IN V3/V4, OR R < 0.2 mV IN V4] INFERIOR MYOCARDIAL INFARCTION , PROBABLY OLD [40+ ms Q WAVE AND/OR ST/T ABNORMALITY IN II/aVF] Compared to ECG 08/14/2024 16:12:50 Left-axis deviation no longer present Myocardial infarct finding still present /store/S0/[id number]/ecg/[id number].pdf
[2024-09-04] MEDS: ACETAMINOPHEN 500 MG TABLET 1000 MG PO (15:46)
[2024-09-04] MEDS: DILTIAZEM INJ 5 MG/ML VIAL 5 ML 25 MG IV (15:47)
[2024-09-04] MEDS: SODIUM CHLORIDE 0.9% 1000 ML 1,000 ML 999 ML IV ×2 (16:02→19:15)
--- NOTE | 2024-09-04 16:20 | XR_ITS ---
Examination: AP chest single view Technique one AP portable upright chest single view Exam date and time: September 04, 2024 1626 hours INDICATIONS: Sepsis protocol. FINDINGS: Early bibasilar pneumonia Normal heart size Moderate osteopenia IMPRESSION: Early bibasilar pneumonia
[2024-09-04 17:34] LABS: Collection Type, Urine Clean Catch
[2024-09-04 17:34] LABS: Lactate (Lactic Acid) 1.9 mMol/L (0.4-2.0)
[2024-09-04 17:38] LABS: Basophils % (Auto) 0 % (0-2.5); Eosinophils # (Auto) 0.2 Thou/mm3 (0.0-0.5); Eosinophils % (Auto) 2 % (0-10); Hematocrit 37.7 % (36.0-46.0); Immature Granulocytes % (Auto) 1 % (0-0); Immature Granulocytes Auto 0.07 Thou/mm3 (0.00-0.00); Lymphocytes # (Auto) 1.8 Thou/mm3 (1.0-4.8); Lymphocytes % (Auto) 14 % (10-50); Mean Corpuscular HGB Conc 31.8 g/dl (31.0-37.0); Mean Corpuscular Hemoglobin 25.3 pg (25.0-35.0); Mean Corpuscular Volume 79 fL (80-100); Monocytes # (Auto) 0.9 Thou/mm3 (0.0-0.8); Monocytes % (Auto) 7 % (0-12); Neutrophils # (Auto) 9.8 Thou/mm3 (1.8-7.7); Neutrophils % (Auto) 77 % (37-80); Nucleated Red Blood Cell % 0 /100 WBC (0); Platelet Count 360 Thou/mm3 (140-440); Red Blood Count 4.75 Miln/mm3 (4.00-5.20); White Blood Count 12.8 Thou/mm3 (3.6-11.0)
[2024-09-04 17:52] LABS: Bacteria,Urine 1+; Bilirubin,Urine Negative (Negative); Blood,Urine 2+ (Negative); Color,Urine Yellow (Lt Yel-Yel); Glucose, Urine Negative (Negative); Hyaline Casts,Urine < 1 /hpf (0-1); Ketones,Urine Negative (Negative); Leukocyte Esterase,Urine Positive (Negative); Nitrite,Urine Negative (Negative); PH,Urine 6.5 (5.0-7.0); Protein,Urine 1+ (Neg - Trace); RBC,Urine 155 /hpf (0-3); Specific Gravity,Urine 1.023 (1.001-1.035); Squamous Epithelial Cell,Urine 6 /hpf (0-5); Urobilinogen,Urine Negative mg/dL (0.0-1.0); WBC,Urine 119 /hpf (0-5)
[2024-09-04 17:57] LABS: Clarity,Urine Hazy (Clear/Hazy)
[2024-09-04 18:01] LABS: INR 1.2 (0.9-1.3)
[2024-09-04 18:18] LABS: B-Type Natriuretic Peptide 133 pg/mL (0-100)
[2024-09-04 18:28] LABS: Albumin, Serum 4.2 gm/dL (3.4-4.8); Albumin/Globulin Ratio 1.3 (1.2-2.2); Alkaline Phosphatase 133 U/L (46-116); Anion Gap 11 (7-16); Aspartate Amino Transferase 15 U/L (0-34); BUN/Creatinine Ratio 9 Ratio (12-20); Blood Urea Nitrogen 10 mg/dL (9-23); Calcium 9.2 mg/dL (8.3-10.6); Calcium (Corrected) 9.2 mg/dL (8.5-10.1); Carbon Dioxide 25.7 mMol/L (20.0-31.0); Chloride 101 mMol/L (98-107); Creatinine (Component) 1.1 mg/dL (0.6-1.3); Estimated Creatinine Clearance 85.4 mL/min (>60); Globulin 3.3 gm/dL (2.3-3.5); Glucose 117 mg/dL (74-106); LDH (Lactate Dehydrogenase) 349 U/L (120-246); Lipase 30 U/L (12-53); Magnesium 1.7 mg/dL (1.6-2.6); Osmolality,Calculated 275 (275-295); Phosphorous 1.5 mg/dL (2.4-5.1); Potassium 3.8 mMol/L (3.4-5.1); Sodium 138 mMol/L (136-145); Total Protein 7.5 gm/dL (5.7-8.2); Troponin I < 0.020 ng/mL (0.0-0.045); eGFR 58 See Note
[2024-09-04 18:33] LABS: Alanine Aminotransferase 12 U/L (10-49)
--- NOTE | 2024-09-04 19:10 | PC.NURSE ---
Confirmed with ordering provider Rojelio Castorena NP to titrate diltiazem to a target HR of 100bpm.
[2024-09-04] MEDS: DILTIAZEM INJ 125 MG in DEXTROSE 5%-WATER 100 ML IV (19:15)
--- NOTE | 2024-09-04 20:23 | PC.NURSE ---
Admitting MD at the bedside.
--- NOTE | 2024-09-04 20:27 | PC.NURSE ---
Called pharmacy for both magnesium and potassium phosphate - they will bring meds down.
[2024-09-04] MEDS: POT PHOS 15 mMol in NS 250 ML 15 MMOL/250 ML BAG 62.5 MMOL IV (20:42)
[2024-09-04] MEDS: Magnesium Sulfate 4 GM Ivpb 4 GM/50 ML BAG IV (20:43)
--- NOTE | 2024-09-04 20:57 | XR_ITS ---
Examination: CT abdomen and pelvis without contrast. Coronal 3-D reconstructions. Sagittal 2-D reconstructions. Date and time of exam:September 04, 2024 1126 hrs. Comparison August 14, 2024 Indications: Shortness of breath history sepsis kidney stones hydronephrosis renal stent placement August 15, 2024 CTDI: vol (mGy): 20 DLP: (mGycm): 1529 Technique: Axial images of the abdomen have been obtained, 3 mm slice thickness Intravenous contrast material has not been administered. Low dose protocols were performed. One or more of the following dose reduction techniques were used; automated exposure control, adjustment of the mA and/or KV according to patient size, use of iterative reconstruction technique. Findings: Nodular parenchymal disease right base Liver mildly irregular in contour no focal liver lesions Spleen is not enlarged No pancreatic mass Right ureteral stent satisfactory position minimal right hydronephrosis, 11 mm calculus mid right ureter Aorta normal size No bowel obstruction Normal appendix Colonic diverticulosis Fat-containing umbilical hernia, hernia defect 28 mm also containing transverse colon, no incarcerated bowel No bowel obstruction Colonic diverticulosis Atrophic uterus Contracted urinary bladder Moderate osteopenia Impression: Mild pneumonia right base Right ureteral stent satisfactory position Minimal right hydronephrosis, 11 mm calculus adjacent to the midportion right ureteral stent Fat-containing umbilical hernia also containing a small piece of transverse colon but no incarcerated bowel or bowel obstruction Normal appendix
[2024-09-05] VITALS (60 sets, daily range): BP systolic 100–173; BP diastolic 57–133; PULSE 11–137; RESP 2–34; TEMP 36.6–36.9; O2SAT 88–100; BMI 66.4
--- NOTE | 2024-09-05 00:22 | ECHO_ITS ---
Transthoracic Echo Report Ht (in): 63 Wt (lb): 375 Exam Location: ER Status: Inpatient Room Maid: Zamzam Galicia Indications: Procedure Performed: BP: 134 / 84 HR: 108 Rhythm: Atrial fibrillation Technical Quality: Technically difficult study MEASUREMENTS (Male / Female) Normal Values 2D ECHO LVOT Diameter 2.0 cm Ascending Aorta Diameter 3.0 cm M-MODE Aortic Root Diameter MM 2.9 cm LA Systolic Diameter MM 3.4 cm LA Ao Ratio MM 1.2 AV Cusp Separation MM 1.8 cm DOPPLER AV Peak Velocity 108.0 cm/s AV Peak Gradient 4.7 mmHg AV Mean Gradient 3.0 mmHg AV Velocity Time Integral 21.4 cm LVOT Peak Velocity 82.0 cm/s LVOT Peak Gradient 2.7 mmHg LVOT Velocity Time Integral 14.4 cm LVOT Cardiac Index 1700.4 cm?/min?m? AV Area Cont Eq vti 2.1 cm? AV Area Cont Eq pk 2.4 cm? MV Peak Velocity 115.0 cm/s MV Peak Gradient 5.3 mmHg MV Mean Velocity 69.1 cm/s MV Mean Gradient 2.0 mmHg MV Area PHT 4.4 cm? Mitral E Point Velocity 99.4 cm/s Mitral A Point Velocity 1.5 cm/s Mitral E to A Ratio 68.1 LV E' Lateral Velocity 13.2 cm/s Mitral E to LV E' Lateral Ratio 7.5 LV E' Septal Velocity 11.6 cm/s Mitral E to LV E' Septal Ratio 8.6 FINDINGS Left Ventricle Normal left ventricular size, wall thickness, systolic function with no obvious regional wall motion abnormalities. The ejection fraction is visually estimated at 55-60%. Right Ventricle The right ventricle is normal in size and systolic function. Left Atrium The left atrium is normal by two-dimensional, color flow and Doppler imaging with no structural abnormalities, no thrombus formation present. Right Atrium The right atrium is normal by two-dimensional imaging, color flow and Doppler imaging with no struct ural abnormalities, no thrombus formation present. Atrial Septum The interatrial septum appears normal with no evidence of a shunt. Aorta The aorta is normal by two-dimensional, color flow and Doppler interrogation. Mitral Valve The mitral valve is normal by two-dimensional, color flow and Doppler interrogation. There is trace mitral valve regurgitation. Aortic Valve The aortic valve is trileaflet and normal by two-dimensional, color flow and Doppler interrogation. There is no significant aortic valve regurgitation. Tricuspid Valve The tricuspid valve is normal by two-dimensional, color flow and Doppler interrogation. There is tra ce tricuspid valve regurgitation. Pulmonic Valve The pulmonic valve is not well visualized. There is no significant pulmonic valve regurgitation. Vessels The pulmonary artery appears normal. The inferior vena cava pulmonary and hepatic veins appear radha l. Pericardium The pericardium is normal by two-dimensional imaging. There is no significant pericardial effusion. CONCLUSIONS Indication: CAD Suboptimal images due to body habitus. Poor image qulaity and limited images. Possible Normal LV size and function. Estimated EF 55-60%. Cannot determine diastolic function due t o AFib. Possible Normal RV size and function. Cannot assess valvular abnormalities. Hakeem Jasmine (Electronically Signed) Final Date: 05 September 2024 18:06
--- NOTE | 2024-09-05 00:31 | PD.RESHP ---
Documentation for date of: 09/05/24 HPI History of Present Illness Chief complaint: Vomiting and Fever History of present illness: HPI: Patient seen at bedside with Hay. Patient is a 59-year-old female with a past medical history significant for coronary artery disease s/p 2 stents 2020, atrial fibrillation on Pradaxa, asthma, essential HTN, hyperlipidemia. Patient used to follow-up with a knitted cloth examiner in [place] but recently February 2024 and has not established care. Patient presented today with a chief complaint of vomiting and fever. Patient stated that yesterday morning after eating breakfast she had approximately 4 episodes of vomiting. She endorsed food contents and denies blood, bile and coffee ground emesis. Associated with a subjective fever at home. Also endorses sick contacts of her and daughter at home. Denies any recent travel. Since presenting to the hospital patient was able to tolerate sips of clear liquids and had no further episodes of emesis. Patient has had intermittent palpitations since her diagnosis of atrial fibrillation in 2021, however she stated that today it was worse. Also had associated shortness of breath at rest. Endorses a 50 degree orthopnea and PND if she lies flat. Denies any chest pain/pressure and lower extremity swelling. Of note 2 weeks ago patient presented to the ED with episodes of vomiting and right flank pain. CT abdomen pelvis at the time showed obstructing right mid ureter urinary calculi. Patient was transferred to [facility] for management and treatment by urology. She had a right ureter stent placed and was subsequently discharged on a 5-day course of cefdinir. ED course: BP 138/92, HR 175 ----> RR 16, HR 122, temp 102.4 F, SpO2 95% on 2 L nasal cannula. Labs significant for Hb 12, HCT 37.7, WBC 12.8, NA 138, K3.8, Mg 1.7, Phos 1.5, BUN 10, CR 1.1. EKG significant for atrial fibrillation with RVR, rate 169 Q waves in V1 and V3. No acute ST changes. Chest x-ray significant for bibasilar consolidation. Negative for pulmonary edema or pleural effusion. Abdomen/pelvis CT significant for mild pneumonia right base, right ureteral stent, mild right hydronephrosis with 11 mm calculus adjacent to the midportion of the right ureteral stent. Fat-containing umbilical hernia. Patient was started on Diltiazem infusion and given Acetaminophen 1g po x 1 Patient will be admitted for workup and management of SIRS 3/4 rule out sepsis. Cardiology, Dr. Jasmine consulted and closely following the case. Appreciate recommendations Review of Systems Review of Systems Narrative Review of Systems: GENERAL: As above HEENT: Denies headaches or visual changes. Denies discharge. Neuro: Denies unusual weakness or difficulty speaking. CARDIO: As above PULM: Denies , couging or wheezing. GI: Denies abdominal pain, N/V/C/D. Reports having BMs. URO: Denies buring/itching/pain/urinary changes. COSMETIC SURGEON: Denies menstrual changes, hot flashes. MSK/EXT/SKIN: Denies joint/skeletal/muschle pain, issues/changes in upper or lower extremities, itchiness, or superficial pain. PSYCH: Cooperative, pleasant mood & affect. The rest of the review of systems is otherwise negative. Past Medical History Past Medical History Comments PMH COMMENT: Past medical history: ? Coronary artery disease s/p 2 stents 2020 - Essential HTN ? Hyperlipidemia ? Obesity class III ? Atrial fibrillation on dabigatran ? Asthma Medication list: ? Dabigatran 150 Mg p.o. twice daily ? Atorvastatin 80 Mg p.o. at bedtime ? Diltiazem 120 Mg p.o. daily ? Metoprolol XL 50 Mg p.o. daily ? Montelukast 10 Mg p.o. daily ? Nitroglycerin 0.4 Mg SL as needed Past surgical history: - BTL 1983 - Cholecystectomy 1998 - Hiatal hernia repair 2019 Allergies: NKFDA Social history: Occupational History: Marital Status: with 10 kids Tobacco use: Denies ETHO use: Denies Illicit drug use: Denies Social History Note: lives with Family History: Dad - [place] 51 Brother - [place] at 45 Mother - [place] at 81 Sister- CHF at age 42 Exam Vital Signs Temp Pulse Resp BP Pulse Ox O2 Del Method O2 Flow Rate 98.2 F 97 22 H 144/65 H 96 Nasal Cannula 4 09/04/24 19:54 09/04/24 23:35 09/04/24 23:35 09/04/24 23:35 09/04/24 23:35 09/04/24 23:35 09/04/24 23:35 Narrative Exam Constitutional Alert, oriented x 3 and comfortable. Obese female on O2 via NC HEENT Vision grossly intact. Patent nares. Trachea midline Respiratory Chest normal on inspection and clear auscultation bilaterally Cardiovascular S1 and S2 audible, RRR. No murmurs carotid bruit. No gross JVD. Abdominal Soft, obese and non tender to palpation in all quadrants. BS + Genitourinary No bladder tenderness, no flank pain. Normal to palpation Musculoskeletal Extremities tone within normal limits. No LE edema. Neurological CN II - XII grossly intact. Extremity motor and sensation grossly intact. Skin Warm, dry and intact. No apparent lesions. Psychiatric Patient has good affect, is cooperative Results: Labs 09/04/24 17:08 09/04/24 17:08 Labs: Short CBC 09/04/24 Range/Units 17:08 WBC 12.8 H (3.6-11.0) Thou/mm3 Hgb 12.0 (12.0-16.0) g/dL Hct 37.7 (36.0-46.0) % Plt Count 360 D (140-440) Thou/mm3 BMP 09/04/24 17:08 Sodium 138 Potassium 3.8 Chloride 101 Carbon Dioxide 25.7 BUN 10 Creatinine 1.1 Glucose 117 H Calcium 9.2 Cardiac Enzymes 09/04/24 Range/Units 17:08 Troponin I < 0.020 (0.0-0.045) ng/mL Liver Function 09/04/24 Range/Units 17:08 Total Bilirubin 1.0 (0.3-1.2) mg/dL AST 15 (0-34) U/L ALT 12 (10-49) U/L Alkaline Phosphatase 133 H (46-116) U/L Albumin 4.2 (3.4-4.8) gm/dL Urine 09/04/24 Range/Units 17:20 Urine Color Yellow (Lt Yel-Yel) Urine Clarity Hazy (Clear/Hazy) Urine pH 6.5 (5.0-7.0) Ur Specific [place] 1.023 (1.001-1.035) Urine Protein 1+ A (Neg - Trace) Urine Glucose (UA) Negative (Negative) Quality Measures Quality Measures none Medications Home Medications and Allergies Home Medications ?Medication ?Instructions ?Recorded ?Confirmed ?Type lisinopril 5 mg tablet 5 mg PO QDAY 08/14/24 08/14/24 History metoprolol tartrate 50 mg tablet 50 mg PO QDAY 08/14/24 08/14/24 History Allergies Allergy/AdvReac Type Severity Reaction Status Date / Time No Known Allergies Allergy Verified 08/14/24 15:27 Visit Medications Acetaminophen (Acetaminophen 325 Mg Tablet) 650 mg PO Q6H PRN PRN Reason: Fever >100.3 or pain Stop: 10/05/24 00:15 Albuterol/Ipratropium (Albuterol/Ipratropium (Duoneb) Rt Buffy 3 Ml Nebu) 3 ml INH Q2HR PRN PRN Reason: SHORTNESS OF BREATH OR WHEEZE Stop: 10/05/24 00:15 Atorvastatin Calcium (Atorvastatin Calcium 20 Mg Tablet) 80 mg PO HS [facility] Stop: 10/05/24 20:59 Famotidine (Famotidine Inj 10 Mg/Ml Vial 2 Ml) 20 mg IVP Q12HR [facility] Stop: 10/05/24 08:59 Diltiazem HCl 125 mg/ Dextrose 125 mls @ 5 mls/hr IV .Q24H [facility]; Protocol Stop: 10/04/24 16:59 Last Infusion: 09/04/24 20:15 Dose: 15 mg/hr, 15 mls/hr Ciprofloxacin/Dextrose (Cipro Ivpb) 400 mg in 200 mls @ 200 mls/hr IV Q12HR [facility] Stop: 09/12/24 08:59 Metoprolol Succinate (Metoprolol Succinate Xl 25 Mg Tabcr) 50 mg PO QDAY [facility] Stop: 10/05/24 08:59 Montelukast Sodium (Montelukast Sodium 10 Mg Tablet) 10 mg PO HS [facility] Stop: 10/05/24 20:59 Morphine Sulfate (Morphine Sulf Inj 10 Mg/Ml Vial) 4 mg IVP Q4HR PRN PRN Reason: PAIN SCALE 7-10 (Severe Stop: 09/10/24 00:15 Nitroglycerin (Nitroglycerin 0.4 Mg Subl Btl #25) 0.4 mg SL Q5MIN PRN PRN Reason: CHEST PAIN Ondansetron HCl (Ondansetron Inj 2 Mg/Ml Inj 2 Ml) 4 mg IV Q6H PRN; Protocol PRN Reason: NAUSEA OR VOMITING Stop: 10/05/24 00:15 Sennosides (Senna Tablet) 1 tab PO QDAY [facility]; Protocol Stop: 10/05/24 08:59 Discontinued Medications Acetaminophen (Acetaminophen 500 Mg Tablet) 1,000 mg PO X1 ONE Stop: 09/04/24 15:31 Last Admin: 09/04/24 15:46 Dose: 1,000 mg Diltiazem HCl (Diltiazem Inj 5 Mg/Ml Vial 5 Ml) 25 mg IV X1 ONE Stop: 09/04/24 15:41 Last Admin: 09/04/24 15:47 Dose: 25 mg Sodium Chloride (Ns) 1,000 mls @ 999 mls/hr IV .Q1H1M ONE Stop: 09/04/24 16:40 Last Infusion: 09/04/24 19:52 Dose: Infused Sodium Chloride (Ns) 1,000 mls @ 999 mls/hr IV .Q1H1M ONE Stop: 09/04/24 17:21 Last Infusion: 09/04/24 20:57 Dose: Infused Diltiazem HCl (Diltiazem In D5w 125 Mg) 125 mg in 125 mls @ 5 mls/hr IV .Q24H [facility]; Protocol Stop: 10/04/24 16:42 Last Admin: 09/04/24 19:26 Dose: Not Given Magnesium Sulfate (Magnesium Sulfate Ivpb) 4 gm in 50 mls @ 12.5 mls/hr IV X1 ONE Stop: 09/05/24 00:21 Last Admin: 09/04/24 20:43 Dose: 12.5 mls/hr Potassium Phosphate (Pot Phos 15 Mmol In Ns 250 Ml) 15 mmol in 250 mls @ 62.5 mls/hr IV X1 ONE Stop: 09/05/24 00:29 Last Admin: 09/04/24 20:42 Dose: 62.5 mls/hr Ceftriaxone Sodium/Dextrose (Rocephin/D5w 1gm Iv Premix) 50 mls @ 100 mls/hr IV X1 ONE Stop: 09/04/24 20:55 Assessment & Plan Plan Patient is a 59-year-old female with a past medical history significant for coronary artery disease s/p 2 stents 2020, atrial fibrillation on Pradaxa, asthma, hyperlipidemia. Patient used to follow-up with a knitted cloth examiner in [place] but recently February 2024 and has not established care. Patient presented today with a chief complaint of vomiting and fever. Patient will be admitted for workup and management of SIRS 3/4 rule out sepsis. 1. SIRS 3/4 2. Vomiting?resolving 3. Rule out sepsis 4. Likely Viral Pneumonia 5. Rule our infected R Ureter stent Patient presented with SIRS 3/4. HR 175, temp 102.4 F, WBC 12.8. Has multiple sick contacts at home. Differentials for source of infection include viral pneumonia, infected right ureter stent, complicated UTI. Chest x-ray significant for bibasilar consolidation. Negative for pulmonary edema or pleural effusion. Abdomen/pelvis CT significant for mild pneumonia right base, right ureteral stent, mild right hydronephrosis with 11 mm calculus adjacent to the midportion of the right ureteral stent. Fat-containing umbilical hernia. Urinalysis significant for 1+ protein, 2+ blood, leukocyte esterase positive, WBC 119 and 1+ bacteria. Plan: ? Clear liquid diet ? Blood and urine cultures ordered ? Sputum culture and Gram stain ordered ? RSV ordered ? Started on ciprofloxacin 400 Mg IV Q12 hourly from [09/05? for coverage of possible complicated UTI. ? Acetaminophen 1 g p.o. Q6 hourly to cover for any temperature spikes 6. Persistent Afib with RVR on Dabigatron Patient has had palpitations since her diagnosis of A-fib in 2021. However since yesterday morning it has increased in intensity. Home rate control medication diltiazem 120 Mg p.o. daily and metoprolol XL 50 Mg p.o. daily. Home anticoagulation dabigatran 150 Mg p.o. twice daily EKG significant for atrial fibrillation with RVR, rate 169 Q waves in V1 and V3. No acute ST changes. K3.8 and Mg 1.7 [id number]: 3 points; 3.2% stroke risk per year HAS-BLED : 1 points; low risk of bleeding In the ED patient was started on diltiazem infusion at 5 Mg per hour Plan: ? Transthoracic echocardiogram ordered to assess for wall motion abnormalities, valvular defects and ejection fraction. - Continue diltiazem infusion at 5 Mg per hour ? Resumed home rate control medication metoprolol XL 50 Mg p.o. daily ? Resumed home anticoagulation dabigatran 150 Mg p.o. twice daily - Repleted with K-Phos 15 mm IV x 1 and magnesium sulfate 4 g IV x 1. Will maintain K >4 and Mg >2 at all times to avoid further arrhythmias. ? Cardiology, Dr. Jasmine consulted and is closely following the case. Appreciate recommendations. 7. CAD s/p 2 stents 2020 Patient stated that she was previously aspirin and Plavix but was subsequently discontinued and she is now only on dabigatran for anticoagulation. 8. Essential Hypertension On admission BP 138/92. Home medication diltiazem 120 Mg p.o. daily and metoprolol XL 50 Mg p.o. daily Plan: ? Resumed home medication metoprolol XL 50 Mg p.o. daily 9. Asthma Patient's home medication montelukast 10 Mg p.o. daily Plan: ? DuoNebs Q2 hourly as needed ? Resumed home medication montelukast 10 Mg p.o. nightly 10. Likely Obesity Hypoventilation Syndrome/YUDITH Patient says she gets SOB after walking 20 steps. Sometimes she even experiences SOB at rest. Her states she also snores in her sleep Plan : - Recommend outpatient sleep study. 11. Obesity class III BMI 66 Plan: - Lawn Specialist referral - Patient may benefit from Bariatric surgery referral as outpatient. 12. Hypophosphatemia On admission Phos 1.5 Plan: ? Repleted with K-Phos 15 mmol IV x 1 ? Monitor repeat phosphorus on a.m. labs Health maintenance: Disposition: IV antibiotics, Diltiazem infusion, Cardiology consult, echo. Diet: clear liquids Lines: pIVs GI Prophylaxis: Famotidine 20 mg IV BID Thrombo Prophylaxis: Dabigatron 150 mg po BID Code status: FULL CODE Plan of care discussed with Attending Dr. Ralf Mejia MD PGY 1 Attending Provider Attestation/Addendum 59-year-old obese female with right ureteral stent, atrial fibrillation, CAD with stents probable YUDITH presents with vomiting and fever. She has weakness and malaise. The patient has A-fib with RVR. She required IV treatment with diltiazem. Magnesium is 1.7, phosphorus 1.5. The patient will be admitted for further treatment and monitoring.
[2024-09-05] MEDS: cefTRIAXone/D5w 1gm IV premix 50 ML IV (00:58)
[2024-09-05] MEDS: CIPROFLOXACIN/D5w 400 MG IVPB 400 MG/200 ML BAG 200 MG IV ×3 (01:29→21:20)
[2024-09-05] MEDS: ALBUTEROL/IPRATROPIUM (Duoneb) RT SOL 3 ML NEBU INH ×5 (01:36→22:33)
[2024-09-05] MEDS: DILTIAZEM INJ 125 MG in DEXTROSE 5%-WATER 100 ML 15 MG IV (04:11)
[2024-09-05 06:50] LABS: Basophils % (Auto) 0 % (0-2.5); Eosinophils # (Auto) 0.3 Thou/mm3 (0.0-0.5); Eosinophils % (Auto) 3 % (0-10); Hematocrit 35.5 % (36.0-46.0); Hemoglobin 11.3 g/dL (12.0-16.0); Immature Granulocytes % (Auto) 1 % (0-0); Immature Granulocytes Auto 0.09 Thou/mm3 (0.00-0.00); Lymphocytes # (Auto) 1.6 Thou/mm3 (1.0-4.8); Lymphocytes % (Auto) 15 % (10-50); Mean Corpuscular HGB Conc 31.8 g/dl (31.0-37.0); Mean Corpuscular Hemoglobin 25.2 pg (25.0-35.0); Mean Corpuscular Volume 79 fL (80-100); Monocytes % (Auto) 9 % (0-12); Neutrophils # (Auto) 7.8 Thou/mm3 (1.8-7.7); Neutrophils % (Auto) 72 % (37-80); Nucleated Red Blood Cell % 0 /100 WBC (0); Platelet Count 309 Thou/mm3 (140-440); RDW Standard Deviation 49.4 fL (36.4-46.3); Red Blood Count 4.48 Miln/mm3 (4.00-5.20); White Blood Count 10.8 Thou/mm3 (3.6-11.0)
[2024-09-05 07:18] LABS: Glucose Estimated Average 120 mg/dL (80-131); Hemoglobin A1C 5.8 % Hgb (4.8-6.0)
[2024-09-05 07:19] LABS: Alanine Aminotransferase < 7 U/L (10-49); Albumin, Serum 3.8 gm/dL (3.4-4.8); Albumin/Globulin Ratio 1.2 (1.2-2.2); Alkaline Phosphatase 121 U/L (46-116); Anion Gap 11 (7-16); Aspartate Amino Transferase 19 U/L (0-34); BUN/Creatinine Ratio 11 Ratio (12-20); Bilirubin,Total 0.7 mg/dL (0.3-1.2); Blood Urea Nitrogen 11 mg/dL (9-23); Calcium (Corrected) 9.2 mg/dL (8.5-10.1); Carbon Dioxide 25.5 mMol/L (20.0-31.0); Chloride 103 mMol/L (98-107); Globulin 3.2 gm/dL (2.3-3.5); Glucose 135 mg/dL (74-106); Magnesium 2.2 mg/dL (1.6-2.6); Osmolality,Calculated 278 (275-295); Potassium 3.2 mMol/L (3.4-5.1); Sodium 139 mMol/L (136-145); Thyroid Stimulating Hormone 0.73 uIU/mL (0.55-4.78); eGFR > 60 See Note
[2024-09-05 07:33] LABS: Cardiac Risk Estimate 3.1 RATIO (3.7-5.6); Cholesterol 122 mg/dL (132-200); HDL Cholesterol 40 mg/dL (40-60); LDL Cholesterol,Calculated 68 mg/dL (0-130); Triglycerides 70 mg/dL (30-150)
[2024-09-05] MEDS: SENNA TABLET 1 TAB PO (08:37)
[2024-09-05] MEDS: METOPROLOL SUCCINATE XL 25 MG TABCR 50 MG PO ×4 (08:37→22:21)
[2024-09-05] MEDS: FAMOTIDINE INJ 10 MG/ML VIAL 2 ML 20 MG IVP ×2 (08:40→21:16)
--- NOTE | 2024-09-05 09:18 | ESCONSULT_ITS ---
<Statement entered by Hakeem Jasmine MD - 09/05/24 22:08> I have personally seen and examined the patient separately on the above date of service and discussed the plan of care with the resident. I reviewed the resident Dr. Millan consultation progress note and agree with the resident findings and plan in the note above and have also edited the documentation to reflect my findings and plan. 59-year-old female with a past medical history of severe morbid obesity with a BMI greater than 66, CAD status post PCI in 2020 on no stents done in [facility], history of paroxysmal atrial fibrillation diagnosed in 2021 on beta- esther as well as calcium channel esther and Pradaxa for anticoagulation, essential hypertension, aspirin, hyperlipidemia, medical apnea, nephrolithiasis with recent ureteric stent on 08/15/2024, chronic hypoxic respiratory failure on home oxygen will be secondary to OHS but no history of obesity sleep apnea sleep apnea presented to the emergency department evaluation of shortness of breath and with hypoxia as well as nausea. Patient recently moved from [place] where she had all of cardiac procedures as her son lives here in [place] and that she had not made any appointments since she moved here and does not have a filtering machine tender. Patient apparently was recently admitted for kidney stone with ureteral stent placement recently transferred when she was told to take both metoprolol and Cardizem for the atrial fibrillation. Will need records milligram dofetilide use Here patient was admitted as patient was having sepsis and possible sepsis with elevated white count of 15 500 left shift and troponin at 0.4 blood pressure was 138/92 mmHg patient heart rate was elevated at 1 50-1 75 and was found to be atrial fibrillation with RVR on the EKG with XL abnormalities including low magnesium of 1.8 in the potassium of 3.8 and phosphorus of 1.5.. Troponins were negative. Chest x-ray showed bibasilar consolidation. CTA also showed some pneumonia along with right ureteral stent with hydronephrosis and 11 mm calculus. Plan: Atrial fibrillation with RVR patient was started on diltiazem drip overnight and for rate control and recommend to continue the same for now. Recommend to increase the metoprolol XL to 100 mg once daily and 100 mg twice daily if needed. Recommend to replace potassium and magnesium aggressively and keep potassium greater than 4 and magnesium greater than 2.0 at all times. Etiology of the RVR is mostly secondary to the infection and recommend to treat the infection appropriately. Patient's chest Vascor is elevated and has bled score is low and the patient is on Pradaxa 50 mg twice daily. Pradaxa GI profile is not that great and would recommend Xarelto 20 mg once daily but it appears that patient does have some insurance issues and would recommend to check it prior to discharging her on Xarelto 20 mg once daily. Echocardiogram ordered to evaluate the LV function and if the LV function is normal then patient can be started on Cardizem if heart rate is still not controlled on metoprolol XL 100 mg twice daily. Patient is not on any rhythm control medications and would continue with the rate control for now unclear if patient has persistent chronic atrial fibrillation versus permanent atrial fibrillation. Patient does have a history of CAD status post 2 stents in 2020 placed in [place]. Patient states that she was at [facility] and all her cardiac records are also at the same hospital and recommend the primary team to call her cardiac records as she moved here permanently to [place] and will be following up with the doctors over here closely. Patient possibly has diastolic congestive heart failure given her overall history of A-fib but CAD will need to rule out systolic heart failure and echocardiogram ordered to rule out regional wall motion diagnosis and also to check the EF. Strict input output, daily weights and 2 g sodium diet for now. Patient is not fluid overloaded but is difficult to ascertain given her obesity. Continue to monitor closely. Hakeem Jasmine M.D. Interventional Cardiology HPI Data of Consult Requesting Physician: Harsha Arambula MD Admitting Provider: Harsha Arambula MD Attending Provider: Harsha Arambula MD Primary Care Provider: Physician No Primary/Family Consult Narrative History of present illness: Lizabeth is a 59 y/o female with PMHx of CAD status post stents in 2020 done in [place], A-fib on Pradaxa, hypertension, asthma, hyperlipidemia, morbid obesity, umbilical hernia and nephrolithiasis status post stent (done recently in [place] 08/15/2024) , on home oxygen 2L who comes in for an evaluation of chest palpitations, starting yesterday in the morning when she woke up at 8 AM not associated with chest pain or pressure however associated with nausea, and shortness of breath as her oxygen was going below 88. Patient reports having feelings like these before, felt this last 2 weeks ago in which she was found to have kidney stone and was evaluated and treated for in [place]. She reports that she was diagnosed with A-fib in 2021. Says that she was taking aspirin and Plavix at some point, however had insurance issues and then was started on Pradaxa for her A-fib and does not take aspirin or Plavix. She said that this was done while she was seeing [facility]. Patient reports that she has gone echo done about 2 weeks ago and was normal. She also notes that she denies any recent travel, however she notes that she has been complaining of fever, chills, congestion and cough. She says that she lives with her and kids who have also been sick and thinks she may have gotten sick as well. She says she takes her medicines as prescribed. She also notes orthopnea, sleeps in a recliner bed. She does not notice any lower extremity swelling, and says it does not really happen after she had stents placed in back in 2020. She also notes that she recently started taking Cardizem scheduled after she left [place] and also had her Lisinopril stopped. ED course: She came to the ED with a blood pressure of 138/92, heart rate of 175, temperature of 102.4, satting on 95% 2 L nasal cannula respiratory rate of 18. She was worked up and was found to have a white count of 13, hemoglobin of 12, potassium 3.8, magnesium 1.7, phosphorus of 1.5, troponin negative x 1. EKG did show A-fib with RVR Q waves in V1 V3 rate of 164. Chest x-ray did show bibasilar consolidation, CT abdomen pelvis did show pneumonia, R ureteral stent and hydronephrosis with 11 mm calculus. Patient was started on diltiazem infusion, given 1 g of Tylenol, and was also started on Cipro. Medicine and cardiology were consulted and patient was admitted to the floors Past medical history: As above Surgeries: Cholecystectomy, bilateral tubal ligation, hernia repair Allergies: No known allergies Medicines: Pradaxa, metoprolol ER 50 mg daily, Lipitor 80 mg daily, diltiazem CD 120 mg daily, magnesium oxide Family history: Her father at age 50 due to his first heart attack, mother had CHF, of a heart attack at age 80, also had CABG. Brother at age 45 with his first heart attack. Sister diagnosed with CHF. Social history: Born and raised in [place], lived in [place] at some point. 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 Has never drink alcohol, never smoked or use illicit drugs. Says she exercises when she can but is limited due to her heart rate beating fast all the time. She also says that her diet includes eating twice a day and particular [place]onese cuisine. cc:: cc: Harsha Arambula MD Review of Systems Review of Systems Narrative Review of Systems: Constitutional: + fever, chills, no, fatigue, weakness, weight loss HEENT: No eye pain, vision loss, ear pain, hearing loss, dysphagia, Cardiovascular: + Palpitations ,no chest pain, edema, pain with walking Respiratory: + cough, + shortness of breath, no wheezing GI: No NVD, abdominal pain, constipation, blood in stool, loss of appetite, heartburn Extremities: No presence of pitting edema MSK: No back pain, joint pain, joint swelling Neuro: No dizziness, numbness, weakness, headaches, seizures, tremors Psych: No anxiety, depression Exam Vital Signs Temp Pulse Resp BP Pulse Ox O2 Del Method O2 Flow Rate 98.2 F 130 H 13 102/65 93 L Nasal Cannula 7 09/04/24 19:54 09/05/24 08:37 09/05/24 08:25 09/05/24 08:37 09/05/24 08:25 09/05/24 07:05 09/05/24 08:25 Narrative Exam General: AAOx3, NAD, morbidly obese female, lying on her right side because she is more comfortable that way. Pleasant woman HEENT: Moist mucous membranes, conjunctiva clear, EOMI, PERRLA, Cardiovascular: S1, S2, radial pulses +2 bilat, irregularly irregular rhythm Pulmonary: Difficulty appreciating breath sounds due to body habitus, no wheezing heard auscultated GI: No tenderness to light or deep palpitation, no guarding, rigidity, rebound tenderness or distension, however abdomen is large due to body habitus Extremities: No presence of trace or pitting edema in lower extremities bilaterally, dorsalis pedis pulses +2 bilaterally Neuro: AAOx3, no focal motor or sensory deficits in the UE or LE bilat Psych: Good judgement, thought and behavior. Cooperative Results Labs 09/05/24 06:10 09/05/24 06:10 Labs: Short CBC 09/04/24 09/05/24 Range/Units 17:08 06:10 WBC 12.8 H 10.8 (3.6-11.0) Thou/mm3 Hgb 12.0 11.3 L (12.0-16.0) g/dL Hct 37.7 35.5 L (36.0-46.0) % Plt Count 360 D 309 D (140-440) Thou/mm3 BMP 09/04/24 09/05/24 17:08 06:10 Sodium 138 139 Potassium 3.8 3.2 L D Chloride 101 103 Carbon Dioxide 25.7 25.5 BUN 10 11 Creatinine 1.1 1.0 Glucose 117 H 135 H Calcium 9.2 9.0 Cardiac Enzymes 09/04/24 Range/Units 17:08 Troponin I < 0.020 (0.0-0.045) ng/mL Liver Function 09/04/24 09/05/24 Range/Units 17:08 06:10 Total Bilirubin 1.0 0.7 (0.3-1.2) mg/dL AST 15 19 (0-34) U/L ALT 12 < 7 L (10-49) U/L Alkaline Phosphatase 133 H 121 H (46-116) U/L Albumin 4.2 3.8 (3.4-4.8) gm/dL Urine 09/04/24 Range/Units 17:20 Urine Color Yellow (Lt Yel-Yel) Urine Clarity Hazy (Clear/Hazy) Urine pH 6.5 (5.0-7.0) Ur Specific [place] 1.023 (1.001-1.035) Urine Protein 1+ A (Neg - Trace) Urine Glucose (UA) Negative (Negative) Quality Measures Quality Measures none Medications Home Medications and Allergies Home Medications ?Medication ?Instructions ?Recorded ?Confirmed ?Type lisinopril 5 mg tablet 5 mg PO QDAY 08/14/24 08/14/24 History metoprolol tartrate 50 mg tablet 50 mg PO QDAY 08/14/24 08/14/24 History Allergies Allergy/AdvReac Type Severity Reaction Status Date / Time No Known Allergies Allergy Verified 08/14/24 15:27 Visit Medications Acetaminophen (Acetaminophen 325 Mg Tablet) 650 mg PO Q6HR PRN PRN Reason: PAIN 1-3 OR FEVER > 101 Stop: 10/05/24 07:06 Albuterol/Ipratropium (Albuterol/Ipratropium (Duoneb) Rt Buffy 3 Ml Nebu) 3 ml INH Q2HR PRN PRN Reason: SHORTNESS OF BREATH OR WHEEZE Stop: 10/05/24 00:15 Last Admin: 09/05/24 01:36 Dose: 3 ml Atorvastatin Calcium (Atorvastatin Calcium 20 Mg Tablet) 80 mg PO HS [facility] Stop: 10/05/24 20:59 Famotidine (Famotidine Inj 10 Mg/Ml Vial 2 Ml) 20 mg IVP Q12HR [facility] Stop: 10/05/24 08:59 Last Admin: 09/05/24 08:40 Dose: 20 mg Diltiazem HCl 125 mg/ Dextrose 125 mls @ 5 mls/hr IV .Q24H [facility]; Protocol Stop: 10/04/24 16:59 Last Admin: 09/05/24 04:11 Dose: 15 mg/hr, 15 mls/hr Ciprofloxacin/Dextrose (Cipro Ivpb) 400 mg in 200 mls @ 200 mls/hr IV Q12HR [facility] Stop: 09/12/24 00:59 Last Admin: 09/05/24 08:45 Dose: 200 mls/hr Metoprolol Succinate (Metoprolol Succinate Xl 25 Mg Tabcr) 50 mg PO QDAY [facility] Stop: 10/05/24 08:59 Last Admin: 09/05/24 08:37 Dose: 50 mg Montelukast Sodium (Montelukast Sodium 10 Mg Tablet) 10 mg PO HS [facility] Stop: 10/05/24 20:59 Morphine Sulfate (Morphine Sulf Inj 10 Mg/Ml Vial) 4 mg IVP Q4HR PRN PRN Reason: PAIN SCALE 7-10 (Severe Stop: 09/10/24 00:15 Nitroglycerin (Nitroglycerin 0.4 Mg Subl Btl #25) 0.4 mg SL Q5MIN PRN PRN Reason: CHEST PAIN Home Medication- Please Speak With Patient Caregiver To Have Rx Brought To [facility] 150 mg PO BID [facility] Stop: 10/05/24 08:59 Ondansetron HCl (Ondansetron Inj 2 Mg/Ml Inj 2 Ml) 4 mg IV Q6H PRN; Protocol PRN Reason: NAUSEA OR VOMITING Stop: 10/05/24 00:15 Potassium Chloride (Potassium Chloride 20 Meq Tabcr) 40 meq PO X1 ONE Stop: 09/05/24 12:01 Sennosides (Senna Tablet) 1 tab PO QDAY [facility]; Protocol Stop: 10/05/24 08:59 Last Admin: 09/05/24 08:37 Dose: 1 tab Discontinued Medications Acetaminophen (Acetaminophen 500 Mg Tablet) 1,000 mg PO X1 ONE Stop: 09/04/24 15:31 Last Admin: 09/04/24 15:46 Dose: 1,000 mg Acetaminophen (Acetaminophen 325 Mg Tablet) 650 mg PO Q6H PRN PRN Reason: Fever >100.3 or pain Stop: 10/05/24 00:15 Acetaminophen (Acetaminophen 500 Mg Tablet) 1,000 mg PO Q6H PRN PRN Reason: Fever >100.3 or pain 1-3 Stop: 10/05/24 00:15 Diltiazem HCl (Diltiazem Inj 5 Mg/Ml Vial 5 Ml) 25 mg IV X1 ONE Stop: 09/04/24 15:41 Last Admin: 09/04/24 15:47 Dose: 25 mg Sodium Chloride (Ns) 1,000 mls @ 999 mls/hr IV .Q1H1M ONE Stop: 09/04/24 16:40 Last Infusion: 09/04/24 19:52 Dose: Infused Sodium Chloride (Ns) 1,000 mls @ 999 mls/hr IV .Q1H1M ONE Stop: 09/04/24 17:21 Last Infusion: 09/04/24 20:57 Dose: Infused Diltiazem HCl (Diltiazem In D5w 125 Mg) 125 mg in 125 mls @ 5 mls/hr IV .Q24H [facility]; Protocol Stop: 10/04/24 16:42 Last Admin: 09/04/24 19:26 Dose: Not Given Magnesium Sulfate (Magnesium Sulfate Ivpb) 4 gm in 50 mls @ 12.5 mls/hr IV X1 ONE Stop: 09/05/24 00:21 Last Infusion: 09/05/24 00:49 Dose: Infused Potassium Phosphate (Pot Phos 15 Mmol In Ns 250 Ml) 15 mmol in 250 mls @ 62.5 mls/hr IV X1 ONE Stop: 09/05/24 00:29 Last Infusion: 09/05/24 00:49 Dose: Infused Ceftriaxone Sodium/Dextrose (Rocephin/D5w 1gm Iv Premix) 50 mls @ 100 mls/hr IV X1 ONE Stop: 09/04/24 20:55 Last Infusion: 09/05/24 01:29 Dose: Infused Potassium Chloride (Potassium Chloride 20 Meq Tabcr) 40 meq PO X1 ONE Stop: 09/05/24 08:23 Sodium Chloride (Sodium Chloride Rt 10% 15 Ml Nebu) 5 ml INH X1 ONE Stop: 09/05/24 02:37 Assessment & Plan Plan Assessment Patient is a 59-year-old female with a past medical history significant for coronary artery disease s/p 2 stents 2020, atrial fibrillation on Pradaxa, asthma, hyperlipidemia. Patient used to follow-up with a filtering machine tender in [place] but recently February 2024 and has not established care. Patient presented today with a chief complaint of vomiting and fever. Patient will be admitted for workup and management of SIRS 3/4 rule out sepsis. #Persistent Afib with RVR on Dabigatron Patient's A-fib is usually rate controlled, is on home metoprolol, was initially on Cardizem every 6 hours as needed, however after leaving [place] she was scheduled to be on Cardizem 120 CD Decompensation could be due to infectious cause as patient has been sick either viral or other source, was 3 out of 4 SIRS positive and came in febrile Says that her most recent echo about 2 weeks ago was normal Potassium today 3.2, mag 2.2 EKG significant for atrial fibrillation with RVR, rate 169 Q waves in V1 and V3. No acute ST changes. [id number]: 3 points; 3.2% stroke risk per year HAS-BLED : 1 points; low risk of bleeding In the ED patient was started on diltiazem infusion at 5 Mg per hour Heart rate has been in the 100s to 110s since being put on the diltiazem and blood pressure has been in the 130s 140s Plan: ?Continue with home Pradaxa 150 mg twice daily ?Continue with diltiazem infusion 5 mg/h ?Continue with home metoprolol succinate 50 mg ?Keep potassium above 4 and magnesium above 2 ?Follow-up with echo #CAD status post 2 stents, 2020 #Essential Hypertension Blood pressure currently in the 150s, was recently taken off her home lisinopril after being in [place] Currently on metoprolol 50 ER Do not have reports of cardiac cath, as was done in [place] Plan: ?Continue home medication metoprolol XL 50 Mg p.o. daily ?Continue with Pradaxa AC as above #? CHF #? OHS vs YUDITH Patient denies sleeping with CPAP and is ever been diagnosed with sleep apnea Patient more likely to have OHS due to morbid obesity, however unsure if patient is chronic CO2 retainer as there is no ABG Patient is not pitting, however is on home oxygen, patient says recent echo was normal however may have component of CHF Plan: ?Recommend outpatient sleep study ?Follow-up echo #SIRS 3/4 #Vomiting?resolving #Rule out sepsis #Likely Viral Pneumonia #Rule our infected R Ureter stent #Asthma #Obesity class III #Hypophosphatemia Management above by primary hospitalist team Patient seen and care discussed with my attending physician, Dr. Mitali Aguila, PGY-1
[2024-09-05] MEDS: DABIGATRAN 150MG CAPSULE PO (10:04)
[2024-09-05] MEDS: POTASSIUM CHLORIDE 20 mEq TABCR 40 MEQ PO ×2 (10:04→12:26)
--- NOTE | 2024-09-05 11:22 | PC.CC ---
Patient is a 59 year-old female who presents to the hospital for SIRS 3/4, Afib RVR. Jaye JAIMES made [id number] contact with patient. ASW introduced self, role, and reason for visit. Patient appeared alert and oriented to self, location, and situation. Patient was pleasant and engaged in initial assessment. Patient confirmed the information on demographics and reports to living at home with her , Hay Truong . Patient stated her medical decision maker is her , Hay Truong and secondary her sister, Lily Chow . Patient reports she is able to ambulate independently but when she has to walk far she has a rollator. She uses oxygen at home 2 liters. The patient is able to complete her own ADLs. Patient does not have a primary care provider as she reports she has not found one as she moved here from [place] six months ago. Upon discharge the patient plans to return home with the support of her . legal services manager to follow up with any discharge needs.
--- NOTE | 2024-09-05 14:18 | ESPR_ITS ---
<Statement entered by Kurt Knihgt MD - 09/05/24 21:31> Patient examined bedside this morning, as per cardiology recommendation we have held the diltiazem drip and started the patient on metoprolol 100 twice daily.we will try to find records from [place] .pending Echo . I discussed with and supervised my co-resident involved in the care of this patient. I agree with the assessment and plan as documented above. Kurt Knight,PGY-3 Disclaimer: Despite multiple revisions, due to the dictation software being used, the document below may not be free of grammatical errors including phonetic/typographic errors. However, this does not deter from our commitment to providing health care in the patient's best interest in mind. Documentation for date of: 09/05/24 Subjective Subjective Interval history: Patient was seen at bedside this morning. No overnight events. Patient was still not rate controlled on assessment. She also stated that she did not have any ground emesis on the day of admission and that it was most likely some Jell- O that she ate prior to vomiting and was orange in color. As per cardiology discontinue diltiazem drip and place patient on metoprolol 100 mg XL daily and started her on Xarelto and discontinue her dabigatran. Echo was ordered. Repleted patient's potassium as well. Will continue patient on ciprofloxacin for now. Pending urine and blood cultures. Exam Vital Signs Temp Pulse Resp BP Pulse Ox O2 Del Method O2 Flow Rate 98.2 F 116 H 19 126/103 H 99 Nasal Cannula 3 09/04/24 19:54 09/05/24 13:01 09/05/24 13:01 09/05/24 13:01 09/05/24 13:01 09/05/24 07:05 09/05/24 12:13 Narrative Exam General: A/O x3, no acute distress, obese Eyes: PERRL, EOMI. Anicteric, vision grossly intact. Ears: No ear pain, no ear discharge, Hearing grossly intact. Nose: No nasal discharge. Mouth/Throat: Dry mucous membranes, no redness, no lesions. Neck: Neck supple, non-tender, no cervical lymphadenopathy. Lungs: Diminished GOYO likely due to body habitus, No accessory muscle use. Cardio: Normal S1/S2, irregular rhythm, no murmurs, no JVD or carotid bruits. Abdomen: Soft, non-tender, no palpable masses, peristalsis present, no guarding or rebound. Extremities: Symmetrical, no significant deformities, no peripheral edema , non-tender, peripheral pulses presents. Skin: No rashes, no lesions, warm to touch. Neuro: No focal neurological deficits. motor and sensory intact Psych: Cooperative, appropriate mood and effect. Objective Labs 09/06/24 05:32 09/06/24 05:32 Labs: Laboratory Results - last 24 hr 09/04/24 09/04/24 09/05/24 17:08 17:20 06:10 WBC 12.8 H 10.8 RBC 4.75 4.48 Hgb 12.0 11.3 L Hct 37.7 35.5 L MCV 79 L 79 L MCH 25.3 25.2 MCHC 31.8 31.8 RDW Std Deviation 49.0 H 49.4 H Plt Count 360 D 309 D Neut % (Auto) 77 72 Lymph % (Auto) 14 15 [place] % (Auto) 7 9 Eos % (Auto) 2 3 Baso % (Auto) 0 0 Neut # (Auto) 9.8 H 7.8 H Lymph # (Auto) 1.8 1.6 [place] # (Auto) 0.9 H 1.0 H Eos # (Auto) 0.2 0.3 Baso # (Auto) 0.0 0.0 Immature Gran # (Auto) 0.07 H 0.09 H Absolute Nucleated RBC 0.00 0.00 Immature Gran % 1 H 1 H Nucleated RBC % 0 0 PT 13.0 H INR 1.2 APTT 32.0 Sodium 138 139 Potassium 3.8 3.2 L D Chloride 101 103 Carbon Dioxide 25.7 25.5 Anion Gap 11 11 BUN 10 11 Creatinine 1.1 1.0 Estim Creat Clear Calc 85.4 94.0 eGFR 58 L > 60 BUN/Creatinine Ratio 9 L 11 L Glucose [address] Glu mg/dL 120 Hemoglobin A1c 5.8 Calculated Osmolality 275 278 Lactic Acid 1.9 Calcium 9.2 9.0 Corrected Calcium 9.2 9.2 Phosphorus 1.5 L Magnesium 1.7 2.2 Total Bilirubin 1.0 0.7 AST 15 19 ALT 12 < 7 L Alkaline Phosphatase 133 H 121 H Lactate Dehydrogenase 349 H Troponin I < 0.020 B-Natriuretic Peptide 133 H Total Protein 7.5 7.0 Albumin 4.2 3.8 Globulin 3.3 3.2 Albumin/Globulin Ratio 1.3 1.2 Triglycerides 70 Cholesterol 122 L LDL Cholesterol, Calc 68 HDL Cholesterol 40 Cholesterol/HDL Ratio 3.1 L Lipase 30 Procalcitonin 0.20 TSH 0.73 Ur Collection Type Clean Catch Urine Color Yellow Urine Clarity Hazy Urine pH 6.5 Ur Specific [place] 1.023 Urine Protein 1+ A Urine Glucose (UA) Negative Urine Ketones Negative Urine Blood 2+ A Urine Nitrite Negative Urine Bilirubin Negative Urine Urobilinogen (Auto) Negative Ur Leukocyte Esterase Positive Urine RBC 155 H Urine WBC 119 H Ur Squamous Epith Cells 6 H Urine Bacteria 1+ A Hyaline Casts < 1 Quality Measures Quality Measures none Assessment & Plan Assessment Current Active Medications: Generic Name Dose Route Start Last Admin Trade Name Freq PRN Reason Stop Dose Admin Acetaminophen 650 mg 09/05/24 07:07 Acetaminophen 325 Mg Tablet PO 10/05/24 07:06 Q6HR PRN PAIN 1-3 OR FEVER > 101 Albuterol/Ipratropium 3 ml 09/05/24 00:16 09/05/24 12:11 Albuterol/Ipratropium (Duoneb) Rt Buffy 3 Ml Nebu INH 10/05/24 00:15 3 ml Q2HR PRN Administration SHORTNESS OF BREATH OR WHEEZE Atorvastatin Calcium 80 mg 09/05/24 21:00 Atorvastatin Calcium 20 Mg Tablet PO 10/05/24 20:59 HS BLAKE Dabigatran 150mg 0 ea 09/05/24 10:00 Capsule PO 10/05/24 09:59 BID BLAKE Famotidine 20 mg 09/05/24 09:00 09/05/24 08:40 Famotidine Inj 10 Mg/Ml Vial 2 Ml IVP 10/05/24 08:59 20 mg Q12HR BLAKE Administration Diltiazem HCl 125 mg/ Dextrose 125 mls @ 5 mls/hr 09/04/24 17:00 09/05/24 04:11 IV 10/04/24 16:59 15 mg/hr .Q24H BLAKE 15 mls/hr Administration Protocol 5 MG/HR Ciprofloxacin/Dextrose 400 mg in 200 mls @ 200 mls/hr 09/05/24 01:00 09/05/24 09:53 Cipro Ivpb IV 09/12/24 00:59 Infused Q12HR BLAKE Infusion Metoprolol Succinate 50 mg 09/05/24 09:00 09/05/24 08:37 Metoprolol Succinate Xl 25 Mg Tabcr PO 10/05/24 08:59 50 mg QDAY BLAKE Administration Montelukast Sodium 10 mg 09/05/24 21:00 Montelukast Sodium 10 Mg Tablet PO 10/05/24 20:59 HS BLAKE Morphine Sulfate 4 mg 09/05/24 00:16 Morphine Sulf Inj 10 Mg/Ml Vial IVP 09/10/24 00:15 Q4HR PRN PAIN SCALE 7-10 (Severe Nitroglycerin 0.4 mg 09/05/24 00:23 Nitroglycerin 0.4 Mg Subl Btl #25 SL Q5MIN PRN CHEST PAIN Ondansetron HCl 4 mg 09/05/24 00:16 Ondansetron Inj 2 Mg/Ml Inj 2 Ml IV 10/05/24 00:15 Q6H PRN NAUSEA OR VOMITING Protocol Sennosides 1 tab 09/05/24 09:00 09/05/24 08:37 Senna Tablet PO 10/05/24 08:59 1 tab QDAY BLAKE Administration Protocol Plan 59-year-old female with past medical history of CAD s/p stents, A-fib (on Pradaxa), urolithiasis s/p stent, asthma, hypertension, and hyperlipidemia was admitted to the hospital on 09/05/2024 due to complicated UTI, community-acquired pneumonia, and concerns for sepsis as well as A-fib with RVR not rate controlled. #Complicated UTI #Community-acquired pneumonia #Concern for sepsis #Hx of urolithiasis s/p stent ?Patient came in and met SIRS criteria 3 out of 4 with tachycardia, fever, and leukocytosis. -DDX sepsis likley 2/2 UTI vs CAP ? Chest x-ray showed pneumonia ? UA was positive bacteria ? Abdomen/Pelvis CT showed stent in the right ureter and has mild right hydronephrosis with 11 mm kidney stone adjacent to the stent. Plan: ? Continue ciprofloxacin 400 mg IV every 12 [09/05/2024?] ?Pending blood cultures and urine cultures ?Pending sputum cultures ? Will continue to monitor #A-fib with RVR (on Pradaxa) #Hx of CAD s/p stents ? Patient came in with feelings of palpitations initially and her EKG did show A-fib with RVR. ? [id number] of 3 points ? HAS-BLED of 1 point ?Discontinue diltiazem drip Plan: ? Gave metoprolol 50 mg XL x 1 to complete metoprolol 100 mg XL for today ? Will continue metoprolol 100 mg XL daily ? Will start patient on Xarelto 20 mg daily ?Echo ordered ? Cardiology consulted, pursue recommendations #Hypokalemia ? Potassium 3.2 today Plan: ? 80 mEq of potassium today ? Will continue to replete as necessary #Normocytic normochromic anemia ? Hemoglobin 11.3 today ? Patient's hemoglobin is 12 at baseline ? Most likely hemodilutional Plan: ?Will transfuse hemoglobin less than 7 ? Will continue to monitor #Hypertension ? Patient's blood pressure has been well-controlled ? Continue metoprolol XL 100 mg daily #Hx of hyperlipidemia ? Continue patient's atorvastatin Disposition: Patient admitted to telemetry. Diet: cardiac GI prophylaxis: not indicated DVT prophylaxis: on xarelto Code: full Case disclosed with Attending Dr. Clark and My senior Dr. Knight PGY3 Abelardo Ramirez PGY1 Attending Provider Attestation/Addendum I have examined the patient, reviewed labs and imaging findings, discussed the case with the resident(s), and reviewed entered orders. I agree with the plan of care as outlined in this note, with these additional summaries/recommendations: Patient seen at bedside. Patient admitted overnight for atrial fibrillation with rapid ventricular response. EKG on admission showed rates into the 160s. Cardiology was consulted. Patient was started on diltiazem gtt. Today heart rate is now trending in the low 100s. Discontinue diltiazem gtt. and transition to oral metoprolol succinate 100 mg daily. Discontinue home Pradaxa and will start Xarelto. Continue to monitor on telemetry 7 echocardiogram pending. Mild hypokalemia and replacement given. On admission patient was found to have a mild pneumonia right base likely secondary to GNR's and urinalysis indicative of urinary tract infection. Continue IV antibiotic. Blood, urine, and sputum culture pending. CT abdomen at time of admission showed right ureteral stent, minimal right hydronephrosis, and a 11 mm calculus adjacent to midportion of right ureteral stent. We will consult urology as these findings are concerning in the setting of urinary tract infection. Patient previously followed urologist in [place] but appears to have been lost to follow-up. Continue home atorvastatin. LDL at goal of 68. Continue inhalers as needed for history of asthma. Patient counseled on weight loss and outpatient follow-up. Repeat hematology and chemistry panel in AM. Dr. Clark
--- NOTE | 2024-09-05 14:51 | PC.NURSE ---
CALLED PHARMACY FOR DILTIAZEM DRIP
[2024-09-05] MEDS: ATORVASTATIN CALCIUM 20 MG TABLET 80 MG PO (21:25)
[2024-09-05] MEDS: MONTELUKAST SODIUM 10 MG TABLET PO (21:25)
--- NOTE | 2024-09-05 21:26 | PC.NURSE ---
SPOKE TO DR JAVIER, AND INFORMED PT'S HR SUSTAINING IN 120-130'S AND IN AFIB RVR. NEW ORDERS GIVEN FOR ADDITIONAL DOSE OF METOPROLOL 50MG PO GIVEN.
[2024-09-06] VITALS (17 sets, daily range): BP systolic 106–143; BP diastolic 65–86; PULSE 54–123; RESP 16–30; TEMP 35.9–36.8; O2SAT 92–99
[2024-09-06] MEDS: ALBUTEROL/IPRATROPIUM (Duoneb) RT SOL 3 ML NEBU INH ×5 (01:16→18:30)
[2024-09-06 06:21] LABS: Basophils % (Auto) 0 % (0-2.5); Eosinophils # (Auto) 0.3 Thou/mm3 (0.0-0.5); Eosinophils % (Auto) 3 % (0-10); Hematocrit 36.1 % (36.0-46.0); Hemoglobin 11.6 g/dL (12.0-16.0); Immature Granulocytes % (Auto) 1 % (0-0); Lymphocytes # (Auto) 2.5 Thou/mm3 (1.0-4.8); Lymphocytes % (Auto) 25 % (10-50); Mean Corpuscular HGB Conc 32.1 g/dl (31.0-37.0); Mean Corpuscular Hemoglobin 25.7 pg (25.0-35.0); Mean Corpuscular Volume 80 fL (80-100); Monocytes # (Auto) 0.9 Thou/mm3 (0.0-0.8); Monocytes % (Auto) 9 % (0-12); Neutrophils % (Auto) 61 % (37-80); Nucleated Red Blood Cell % 0 /100 WBC (0); Platelet Count 269 Thou/mm3 (140-440); RDW Standard Deviation 51.2 fL (36.4-46.3); Red Blood Count 4.51 Miln/mm3 (4.00-5.20); White Blood Count 9.8 Thou/mm3 (3.6-11.0)
[2024-09-06 06:43] LABS: INR 1.2 (0.9-1.3); Partial Thromboplastin Time 36.5 Seconds (22.0-36.0); Prothrombin Time 13.4 Seconds (9.0-12.2)
[2024-09-06 06:57] LABS: Alanine Aminotransferase 15 U/L (10-49); Albumin, Serum 4.1 gm/dL (3.4-4.8); Albumin/Globulin Ratio 1.2 (1.2-2.2); Alkaline Phosphatase 116 U/L (46-116); Anion Gap 11 (7-16); Aspartate Amino Transferase 29 U/L (0-34); BUN/Creatinine Ratio 8 Ratio (12-20); Blood Urea Nitrogen 9 mg/dL (9-23); Calcium 9.3 mg/dL (8.3-10.6); Calcium (Corrected) 9.3 mg/dL (8.5-10.1); Carbon Dioxide 26.8 mMol/L (20.0-31.0); Chloride 99 mMol/L (98-107); Creatinine (Component) 1.1 mg/dL (0.6-1.3); Estimated Creatinine Clearance 84.2 mL/min (>60); Globulin 3.3 gm/dL (2.3-3.5); Glucose 138 mg/dL (74-106); Magnesium 1.9 mg/dL (1.6-2.6); Osmolality,Calculated 274 (275-295); Phosphorous 2.8 mg/dL (2.4-5.1); Potassium 4.1 mMol/L (3.4-5.1); Sodium 137 mMol/L (136-145); Total Protein 7.4 gm/dL (5.7-8.2); eGFR 58 See Note
--- NOTE | 2024-09-06 08:01 | ESPR_ITS ---
<Statement entered by Hakeem Jasmine MD - 09/08/24 07:07> I have personally seen and examined the patient separately on the above date of service and discussed the plan of care with the resident. I reviewed the resident Dr. Millan consultation progress note and agree with the resident findings and plan in the note above and have also edited the documentation to reflect my findings and plan. Patient presented with atrial fibrillation with RVR and was initially on diltiazem drip and was changed to metoprolol XL 100 mg twice daily and rate appears to be decently controlled and will continue to monitor for now. Recommend to keep potassium greater than 4 and magnesium greater than 2.0 at all times. Etiology of the RVR possibly secondary to infection given her recent UTI and also concern for pneumonia at the present point of time. If the rate is still elevated will add a second AV sukumar esther. As noted previously patient chads Vascor is elevated and has bled score is low. Patient was on Pradaxa 150 mg twice daily and recommend to change to Xarelto 20 mg once daily if patient insurance approved for the same as the patient is greater than 150 kg. Patient is not on any rhythm control medications and would continue with the rate control for now unclear if patient has persistent chronic atrial fibrillation versus permanent atrial fibrillation. Echocardiogram completed on 09/05/2024 showed suboptimal images due to body habitus and overall poor image quality and limited images. Possible normal LV, RV size and function and estimated EF around 55 to 60%. Cannot determine diastolic function as well as valvular abnormalities because of the poor images. Patient does have a history of CAD status post 2 stents in 2020 placed in [place]. Patient states that she was at [facility] and all her cardiac records are also at the same hospital and recommend the primary team to call her cardiac records as she moved here permanently to [place] and will be following up with the doctors over here closely. Patient possibly has diastolic congestive heart failure given her overall history of A-fib and echo does not show evidence of systolic heart failure but poor images to describe any regional wall motion abnormalities. Recommend to continue strict input output, daily weights and 2 g sodium diet for now. Patient is not fluid overloaded but is difficult to ascertain given her obesity. Continue to monitor closely. Management of rest of the medical conditions as per primary team and other consultants. Thank you for the consult and allowing me to participate in the care of the patient. Cardiology will continue to follow. Hakeem Jasmine M.D. Interventional Cardiology Documentation for date of: 09/06/24 Subjective Subjective Interval history: Patient examined at bedside today. Events on telemetry appear to be patient's heart rate being a little more elevated, it could be due to patient moving however rate seems to be elevated. Patient reports no chest pain or palpitations. Says she is doing well and was able to sleep well. She had does not have a headache has not been nauseous. She is wondering when she is going with to go home. 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 No other complaints at this time Exam Vital Signs Temp Pulse Resp BP Pulse Ox O2 Del Method O2 Flow Rate 97.3 F 81 20 107/73 92 L Nasal Cannula 2 09/06/24 04:00 09/06/24 04:49 09/06/24 04:49 09/06/24 04:00 09/06/24 04:49 09/06/24 04:00 09/06/24 04:49 Narrative Exam General: AAOx3, NAD, morbidly obese female, sitting upright. Pleasant woman HEENT: Moist mucous membranes, conjunctiva clear, EOMI, PERRLA, Cardiovascular: S1, S2, radial pulses +2 bilat, irregularly irregular rhythm but rate controlled Pulmonary: Difficulty appreciating breath sounds due to body habitus, no wheezing heard auscultated GI: No tenderness to light or deep palpitation, no guarding, rigidity, rebound tenderness or distension, however abdomen is large due to body habitus Extremities: No presence of trace or pitting edema in lower extremities bilaterally, dorsalis pedis pulses +2 bilaterally Neuro: AAOx3, no focal motor or sensory deficits in the UE or LE bilat Psych: Good judgement, thought and behavior. Cooperative Objective Labs 09/06/24 05:32 09/06/24 05:32 Labs: Laboratory Results - last 24 hr 09/06/24 05:32 WBC 9.8 RBC 4.51 Hgb 11.6 L Hct 36.1 MCV 80 MCH 25.7 MCHC 32.1 RDW Std Deviation 51.2 H Plt Count 269 D Neut % (Auto) 61 Lymph % (Auto) 25 [place] % (Auto) 9 Eos % (Auto) 3 Baso % (Auto) 0 Neut # (Auto) 6.0 Lymph # (Auto) 2.5 [place] # (Auto) 0.9 H Eos # (Auto) 0.3 Baso # (Auto) 0.0 Immature Gran # (Auto) 0.10 H Absolute Nucleated RBC 0.00 Immature Gran % 1 H Nucleated RBC % 0 PT 13.4 H INR 1.2 APTT 36.5 H Sodium 137 Potassium 4.1 D Chloride 99 Carbon Dioxide 26.8 Anion Gap 11 BUN 9 Creatinine 1.1 Estim Creat Clear Calc 84.2 eGFR 58 L BUN/Creatinine Ratio 8 L Glucose 138 H Calculated Osmolality 274 L Calcium 9.3 Corrected Calcium 9.3 Phosphorus 2.8 Magnesium 1.9 Total Bilirubin 1.0 AST 29 ALT 15 Alkaline Phosphatase 116 Total Protein 7.4 Albumin 4.1 Globulin 3.3 Albumin/Globulin Ratio 1.2 Quality Measures Quality Measures none Assessment & Plan Assessment Current Active Medications: Generic Name Dose Route Start Last Admin Trade Name Freq PRN Reason Stop Dose Admin Acetaminophen 650 mg 09/05/24 07:07 Acetaminophen 325 Mg Tablet PO 10/05/24 07:06 Q6HR PRN PAIN 1-3 OR FEVER > 101 Albuterol/Ipratropium 3 ml 09/05/24 00:16 09/06/24 04:49 Albuterol/Ipratropium (Duoneb) Rt Buffy 3 Ml Nebu INH 10/05/24 00:15 3 ml Q2HR PRN Administration SHORTNESS OF BREATH OR WHEEZE Atorvastatin Calcium 80 mg 09/05/24 21:00 09/05/24 21:25 Atorvastatin Calcium 20 Mg Tablet PO 10/05/24 20:59 80 mg HS BLAKE Administration Famotidine 20 mg 09/05/24 09:00 09/05/24 21:16 Famotidine Inj 10 Mg/Ml Vial 2 Ml IVP 10/05/24 08:59 20 mg Q12HR BLAKE Administration Ciprofloxacin/Dextrose 400 mg in 200 mls @ 200 mls/hr 09/05/24 01:00 09/05/24 21:20 Cipro Ivpb IV 09/12/24 00:59 200 mls/hr Q12HR BLAKE Administration Magnesium Sulfate 2 gm in 50 mls @ 25 mls/hr 09/06/24 07:07 Magnesium Sulfate Ivpb IV 09/06/24 09:06 X1 ONE Metoprolol Succinate 100 mg 09/05/24 21:30 09/05/24 22:06 Metoprolol Succinate Xl 25 Mg Tabcr PO 10/05/24 21:29 Not Given BID BLAKE Montelukast Sodium 10 mg 09/05/24 21:00 09/05/24 21:25 Montelukast Sodium 10 Mg Tablet PO 10/05/24 20:59 10 mg HS BLAKE Administration Morphine Sulfate 4 mg 09/05/24 00:16 Morphine Sulf Inj 10 Mg/Ml Vial IVP 09/10/24 00:15 Q4HR PRN PAIN SCALE 7-10 (Severe Nitroglycerin 0.4 mg 09/05/24 00:23 Nitroglycerin 0.4 Mg Subl Btl #25 SL Q5MIN PRN CHEST PAIN Ondansetron HCl 4 mg 09/05/24 00:16 Ondansetron Inj 2 Mg/Ml Inj 2 Ml IV 10/05/24 00:15 Q6H PRN NAUSEA OR VOMITING Protocol Rivaroxaban 20 mg 09/06/24 09:00 Rivaroxaban 10 Mg Tablet PO 10/06/24 08:59 QDAY BLAKE Sennosides 1 tab 09/05/24 09:00 09/05/24 08:37 Senna Tablet PO 10/05/24 08:59 1 tab QDAY BLAKE Administration Protocol Plan Assessment Patient is a 59-year-old female with a past medical history significant for coronary artery disease s/p 2 stents 2020, atrial fibrillation on Pradaxa, asthma, hyperlipidemia. Patient used to follow-up with a senior actuarial analyst in [place] but recently February 2024 and has not established care. Patient presented today with a chief complaint of vomiting and fever. Patient will be admitted for workup and management of SIRS 3/4 rule out sepsis. #Persistent Afib with RVR on Dabigatron Patient's A-fib is usually rate controlled, is on home metoprolol, was initially on Cardizem every 6 hours as needed, however after leaving [place] she was scheduled to be on Cardizem 120 CD Decompensation could be due to infectious cause as patient has been sick either viral or other source, was 3 out of 4 SIRS positive and came in febrile Says that her most recent echo about 2 weeks ago was normal Potassium today 3.2, mag 2.2 EKG significant for atrial fibrillation with RVR, rate 169 Q waves in V1 and V3. No acute ST changes. [id number]: 3 points; 3.2% stroke risk per year HAS-BLED : 1 points; low risk of bleeding Patient's heart rate has been elevated a bit, however we will continue with metoprolol 100 twice daily at this time Patient's echo shows EF of 50 to 60%, possible diastolic dysfunction however images are not the best due to body habitus Plan: ?Switch to Xarelto at this time, did not choose Eliquis due to patient's body habitus and Xarelto was better for patient with body habitus above 150 kg ?Continue with metoprolol XL 100 twice daily ?Keep potassium above 4 and magnesium above 2 #CAD status post 2 stents, 2020 #Essential Hypertension Blood pressure currently in the 150s, was recently taken off her home lisinopril after being in [place] Currently on metoprolol 50 ER Do not have reports of cardiac cath, as was done in [place] Plan: ?Continue home medication metoprolol XL 100 mg twice daily ?Continue with Xarelto 20 mg #? CHF #? OHS vs YUDITH Patient denies sleeping with CPAP and is ever been diagnosed with sleep apnea Patient more likely to have OHS due to morbid obesity, however unsure if patient is chronic CO2 retainer as there is no ABG Patient is not pitting, however is on home oxygen, patient says recent echo was normal however may have component of CHF Plan: ?Recommend outpatient sleep study #SIRS 3/4 #Vomiting?resolving #Rule out sepsis #Likely Viral Pneumonia #Rule our infected R Ureter stent #Asthma #Obesity class III #Hypophosphatemia Management above by primary hospitalist team Patient seen and care discussed with my attending physician, Dr. Mitali Aguila, PGY-1
[2024-09-06] MEDS: FAMOTIDINE INJ 10 MG/ML VIAL 2 ML 20 MG IVP ×2 (08:02→20:40)
[2024-09-06] MEDS: RIVAROXABAN 10 MG TABLET 20 MG PO (08:03)
[2024-09-06] MEDS: METOPROLOL SUCCINATE XL 25 MG TABCR 100 MG PO ×2 (08:03→20:42)
[2024-09-06] MEDS: CIPROFLOXACIN/D5w 400 MG IVPB 400 MG/200 ML BAG 200 MG IV ×2 (08:04→20:42)
[2024-09-06 08:24] LABS: Respiratory Syncytial Virus Ag Positive (Negative)
[2024-09-06] MEDS: Magnesium Sulfate 2 GM Ivpb 2 GM/50 ML BAG IV (09:11)
--- NOTE | 2024-09-06 14:43 | PD.RESPRO ---
Documentation for date of: 09/06/24 Subjective Subjective Interval history: Patient seen at bedside this morning. No overnight events. Patient is feeling a lot better today. personal lines appraiser reviewed and patient is heart rate is better controlled at this time. Cardiology recommended to continue metoprolol 100 mg XL twice daily and to switch patient to Xarelto 20 mg daily. Echo showed an EF of 55 to 60%. Patient's medications were switched. No other complaints at this time. Exam Vital Signs Temp Pulse Resp BP Pulse Ox O2 Del Method O2 Flow Rate 97.0 F 70 22 H 121/86 H 97 Nasal Cannula 2 09/06/24 12:00 09/06/24 14:23 09/06/24 14:23 09/06/24 12:00 09/06/24 14:23 09/06/24 12:00 09/06/24 14:23 Narrative Exam General: A/O x3, no acute distress, obese Eyes: PERRL, EOMI. Anicteric, vision grossly intact. Ears: No ear pain, no ear discharge, Hearing grossly intact. Nose: No nasal discharge. Mouth/Throat: Dry mucous membranes, no redness, no lesions. Neck: Neck supple, non-tender, no cervical lymphadenopathy. Lungs: Diminished GOYO likely due to body habitus, No accessory muscle use. Cardio: Normal S1/S2, irregular rhythm, no murmurs, no JVD or carotid bruits. Abdomen: Soft, non-tender, no palpable masses, peristalsis present, no guarding or rebound. Extremities: Symmetrical, no significant deformities, no peripheral edema , non-tender, peripheral pulses presents. Skin: No rashes, no lesions, warm to touch. Neuro: No focal neurological deficits. motor and sensory intact Psych: Cooperative, appropriate mood and effect. Objective Labs 09/07/24 05:07 09/07/24 05:07 Labs: Laboratory Results - last 24 hr 09/06/24 09/06/24 05:32 07:14 WBC 9.8 RBC 4.51 Hgb 11.6 L Hct 36.1 MCV 80 MCH 25.7 MCHC 32.1 RDW Std Deviation 51.2 H Plt Count 269 D Neut % (Auto) 61 Lymph % (Auto) 25 [place] % (Auto) 9 Eos % (Auto) 3 Baso % (Auto) 0 Neut # (Auto) 6.0 Lymph # (Auto) 2.5 [place] # (Auto) 0.9 H Eos # (Auto) 0.3 Baso # (Auto) 0.0 Immature Gran # (Auto) 0.10 H Absolute Nucleated RBC 0.00 Immature Gran % 1 H Nucleated RBC % 0 PT 13.4 H INR 1.2 APTT 36.5 H Sodium 137 Potassium 4.1 D Chloride 99 Carbon Dioxide 26.8 Anion Gap 11 BUN 9 Creatinine 1.1 Estim Creat Clear Calc 84.2 eGFR 58 L BUN/Creatinine Ratio 8 L Glucose 138 H Calculated Osmolality 274 L Calcium 9.3 Corrected Calcium 9.3 Phosphorus 2.8 Magnesium 1.9 Total Bilirubin 1.0 AST 29 ALT 15 Alkaline Phosphatase 116 Total Protein 7.4 Albumin 4.1 Globulin 3.3 Albumin/Globulin Ratio 1.2 RSV Rapid Positive A Quality Measures Quality Measures none Assessment & Plan Assessment Current Active Medications: Generic Name Dose Route Start Last Admin Trade Name Freq PRN Reason Stop Dose Admin Acetaminophen 650 mg 09/05/24 07:07 Acetaminophen 325 Mg Tablet PO 10/05/24 07:06 Q6HR PRN PAIN 1-3 OR FEVER > 101 Albuterol/Ipratropium 3 ml 09/05/24 00:16 09/06/24 14:21 Albuterol/Ipratropium (Duoneb) Rt Buffy 3 Ml Nebu INH 10/05/24 00:15 3 ml Q2HR PRN Administration SHORTNESS OF BREATH OR WHEEZE Atorvastatin Calcium 80 mg 09/05/24 21:00 09/05/24 21:25 Atorvastatin Calcium 20 Mg Tablet PO 10/05/24 20:59 80 mg HS BLAKE Administration Famotidine 20 mg 09/05/24 09:00 09/06/24 08:02 Famotidine Inj 10 Mg/Ml Vial 2 Ml IVP 10/05/24 08:59 20 mg Q12HR BLAKE Administration Ciprofloxacin/Dextrose 400 mg in 200 mls @ 200 mls/hr 09/05/24 01:00 09/06/24 08:04 Cipro Ivpb IV 09/12/24 00:59 200 mls/hr Q12HR BLAKE Administration Metoprolol Succinate 100 mg 09/05/24 21:30 09/06/24 08:03 Metoprolol Succinate Xl 25 Mg Tabcr PO 10/05/24 21:29 100 mg BID BLAKE Administration Montelukast Sodium 10 mg 09/05/24 21:00 09/05/24 21:25 Montelukast Sodium 10 Mg Tablet PO 10/05/24 20:59 10 mg HS BLAKE Administration Morphine Sulfate 4 mg 09/05/24 00:16 Morphine Sulf Inj 10 Mg/Ml Vial IVP 09/10/24 00:15 Q4HR PRN PAIN SCALE 7-10 (Severe Nitroglycerin 0.4 mg 09/05/24 00:23 Nitroglycerin 0.4 Mg Subl Btl #25 SL Q5MIN PRN CHEST PAIN Ondansetron HCl 4 mg 09/05/24 00:16 Ondansetron Inj 2 Mg/Ml Inj 2 Ml IV 10/05/24 00:15 Q6H PRN NAUSEA OR VOMITING Protocol Rivaroxaban 20 mg 09/06/24 09:00 09/06/24 08:03 Rivaroxaban 10 Mg Tablet PO 10/06/24 08:59 20 mg QDAY BLAKE Administration Sennosides 1 tab 09/05/24 09:00 09/06/24 08:04 Senna Tablet PO 10/05/24 08:59 Not Given QDAY BLAKE Protocol Plan 59-year-old female with past medical history of CAD s/p stents, A-fib (on Pradaxa), urolithiasis s/p stent, asthma, hypertension, and hyperlipidemia was admitted to the hospital on 09/05/2024 due to complicated UTI, community-acquired pneumonia, and concerns for sepsis as well as A-fib with RVR not rate controlled. #Complicated UTI #Community-acquired pneumonia #Concern for sepsis #Hx of urolithiasis s/p stent ?Patient came in and met SIRS criteria 3 out of 4 with tachycardia, fever, and leukocytosis. -DDX sepsis likley 2/2 UTI vs CAP ? Chest x-ray showed pneumonia ? UA was positive bacteria ? Abdomen/Pelvis CT showed stent in the right ureter and has mild right hydronephrosis with 11 mm kidney stone adjacent to the stent. Plan: ? Continue ciprofloxacin 400 mg IV every 12 [09/05/2024?] ?Pending blood cultures and urine cultures ?Pending sputum cultures ? Will continue to monitor #A-fib with RVR (on Pradaxa) #Hx of CAD s/p stents ? Patient came in with feelings of palpitations initially and her EKG did show A-fib with RVR. ? [id number] of 3 points ? HAS-BLED of 1 point ?Discontinue diltiazem drip -Echo on 08/2024 showed EF 55-60% Plan: ? Will continue metoprolol 100 mg XL BID ? Will Continue patient on Xarelto 20 mg daily ? Cardiology consulted, pursue recommendations #Hypokalemia ? Potassium 3.9 today Plan: ? 20 mEq of potassium today ? Will continue to replete as necessary #Normocytic normochromic anemia ? Hemoglobin 11.6 today ? Patient's hemoglobin is 12 at baseline ? Most likely hemodilutional Plan: ?Will transfuse hemoglobin less than 7 ? Will continue to monitor #Hypertension ? Patient's blood pressure has been well-controlled ? Continue metoprolol XL 100 mg BID #Hx of hyperlipidemia ? Continue patient's atorvastatin Disposition: Patient admitted to telemetry, continue Metoprolol Xl 100 mg BID and Xarelto for A-fib, continue Abx. Diet: cardiac GI prophylaxis: not indicated DVT prophylaxis: on xarelto Code: full Case disclosed with Attending Dr. Clark and My senior Dr. Urbina PGY2 Abelardo Ramirez PGY1 Senior Resident Attestation: The patient reported she is doing better but not at base line yet. Her vitals were stable saturating 96% on 2L NC. Labs were at baseline. We will continue with current treatment and after her cultures are back by tomorrow we will plan for discharge. I discussed with and supervised the administration intern physician involved in the care of this patient. I personally saw and examined the patient and discussed the assessment and plan with the entire medicine team, including my attending. I agree with the assessment and plan as documented above. Helio Urbina MD PGY2 Internal Medicine Attending Provider Attestation/Addendum I have examined the patient, reviewed labs and imaging findings, discussed the case with the resident(s), and reviewed entered orders. I agree with the plan of care as outlined in this note, with these additional summaries/recommendations: Patient seen at bedside. No acute overnight events. Patient reports she is starting to feel better. She denies chest pain or palpitations. Patient is admitted for atrial fibrillation with rapid ventricular response. History of known atrial fibrillation. EKG on admission showed rates into the 160s. Cardiology was consulted. Patient was started on diltiazem gtt with improvement of rate and discontinued. Patient transitioned to oral metoprolol succinate 100 mg BID. Patients pulse remains labile at this time trending in the 70s to 110s although overall significantly improved. Discontinue home Pradaxa and continue Xarelto. Pharmacy reports xarelto is covered by insurance. Patient has extensive cardiac history & records requested. Continue to monitor on telemetry & echocardiogram showed EF 55-60%. Continue to replete electrolytes as needed. On admission patient was found to have a mild pneumonia right base likely secondary to GNR's and urinalysis indicative of urinary tract infection. Continue IV antibiotic. Blood cxs no growth at 24hrs, urine cx preliminary GNR, and sputum culture pending. CT abdomen at time of admission showed right ureteral stent, minimal right hydronephrosis, and a 11 mm calculus adjacent to midportion of right ureteral stent. We will touch base with urology to see if intervention is needed while hospitalized. Patient previously followed urologist in [place] not made follow-up appointment. Continue home atorvastatin. LDL at goal of 68. Continue inhalers as needed for history of asthma. Patient counseled on weight loss and outpatient follow-up. Repeat hematology and chemistry panel in AM. Dr. Clark
[2024-09-06] MEDS: POTASSIUM CHLORIDE 20 mEq TABCR PO (17:28)
--- NOTE | 2024-09-06 19:13 | PC.NURSE ---
patient c/o non productive cough that is worsening that sometimes she feels she becomes short of breath. Patient does have breathing treatments which works but the cough contributes to her SOB. Notified Dr. Mejia and will put in orders.
[2024-09-06] MEDS: guaiFENesin SYRUP 200 MG/10 ML UDC PO (19:31)
[2024-09-06] MEDS: ATORVASTATIN CALCIUM 20 MG TABLET 80 MG PO (20:41)
[2024-09-06] MEDS: MONTELUKAST SODIUM 10 MG TABLET PO (20:43)
[2024-09-07] VITALS (18 sets, daily range): BP systolic 112–135; BP diastolic 74–91; PULSE 72–142; RESP 15–29; TEMP 36.2–36.6; O2SAT 92–99
[2024-09-07] MEDS: ALBUTEROL/IPRATROPIUM (Duoneb) RT SOL 3 ML NEBU INH ×4 (03:55→21:16)
[2024-09-07 05:37] LABS: Basophils % (Auto) 0 % (0-2.5); Eosinophils # (Auto) 0.7 Thou/mm3 (0.0-0.5); Eosinophils % (Auto) 8 % (0-10); Hematocrit 34.6 % (36.0-46.0); Immature Granulocytes % (Auto) 1 % (0-0); Immature Granulocytes Auto 0.09 Thou/mm3 (0.00-0.00); Lymphocytes # (Auto) 2.4 Thou/mm3 (1.0-4.8); Lymphocytes % (Auto) 27 % (10-50); Mean Corpuscular HGB Conc 31.8 g/dl (31.0-37.0); Mean Corpuscular Hemoglobin 25.1 pg (25.0-35.0); Mean Corpuscular Volume 79 fL (80-100); Monocytes # (Auto) 1.3 Thou/mm3 (0.0-0.8); Monocytes % (Auto) 14 % (0-12); Neutrophils # (Auto) 4.4 Thou/mm3 (1.8-7.7); Neutrophils % (Auto) 50 % (37-80); Nucleated Red Blood Cell % 0 /100 WBC (0); Platelet Count 227 Thou/mm3 (140-440); RDW Standard Deviation 50.5 fL (36.4-46.3); Red Blood Count 4.38 Miln/mm3 (4.00-5.20); White Blood Count 8.9 Thou/mm3 (3.6-11.0)
[2024-09-07 06:23] LABS: Alanine Aminotransferase 20 U/L (10-49); Albumin, Serum 3.8 gm/dL (3.4-4.8); Albumin/Globulin Ratio 1.3 (1.2-2.2); Alkaline Phosphatase 103 U/L (46-116); Anion Gap 8 (7-16); Aspartate Amino Transferase 36 U/L (0-34); BUN/Creatinine Ratio 12 Ratio (12-20); Bilirubin,Total 0.8 mg/dL (0.3-1.2); Blood Urea Nitrogen 13 mg/dL (9-23); Calcium 8.8 mg/dL (8.3-10.6); Carbon Dioxide 27.9 mMol/L (20.0-31.0); Chloride 100 mMol/L (98-107); Creatinine (Component) 1.1 mg/dL (0.6-1.3); Estimated Creatinine Clearance 83.4 mL/min (>60); Glucose 111 mg/dL (74-106); Magnesium 2.1 mg/dL (1.6-2.6); Osmolality,Calculated 273 (275-295); Phosphorous 3.2 mg/dL (2.4-5.1); Potassium 4.1 mMol/L (3.4-5.1); Sodium 136 mMol/L (136-145); Total Protein 6.8 gm/dL (5.7-8.2); eGFR 58 See Note
--- NOTE | 2024-09-07 08:19 | ESPR_ITS ---
<Statement entered by Hakeem Jasmine MD - 09/08/24 07:07> I have personally seen and examined the patient separately on the above date of service and discussed the plan of care with the resident. I reviewed the resident Dr. Millan consultation progress note and agree with the resident findings and plan in the note above and have also edited the documentation to reflect my findings and plan. Patient presented with atrial fibrillation with RVR and was initially on diltiazem drip and was changed to metoprolol XL 100 mg twice daily and rate appears to be decently controlled and will continue to monitor for now. Recommend to keep potassium greater than 4 and magnesium greater than 2.0 at all times. Etiology of the RVR possibly secondary to infection given her recent UTI and also concern for pneumonia at the present point of time but patient has been diagnosed with RSV infection and is on contact precautions. Patient started to ambulate today and her heart rate was elevated up to 140 bpm while ambulation. Uncontrolled heart rate probably secondary to the active RSV infection and recommended to Cardizem CD 120 mg daily in addition to metoprolol XL 100 mg twice daily. As noted previously patient chads Vascor is elevated and has bled score is low. Patient was on Pradaxa 150 mg twice daily and recommend to change to Xarelto 20 mg once daily if patient insurance approved for the same as the patient is greater than 150 kg. Patient is not on any rhythm control medications and would continue with the rate control for now unclear if patient has persistent chronic atrial fibrillation versus permanent atrial fibrillation. Echocardiogram completed on 09/05/2024 showed suboptimal images due to body habitus and overall poor image quality and limited images. Possible normal LV, RV size and function and estimated EF around 55 to 60%. Cannot determine diastolic function as well as valvular abnormalities because of the poor images. Patient does have a history of CAD status post 2 stents in 2020 placed in [place]. Patient states that she was at [facility] and all her cardiac records are also at the same hospital and recommend the primary team to call her cardiac records as she moved here permanently to [place] and will be following up with the doctors over here closely. Patient possibly has diastolic congestive heart failure given her overall history of A-fib and echo does not show evidence of systolic heart failure but poor images to describe any regional wall motion abnormalities. Recommend to continue strict input output, daily weights and 2 g sodium diet for now. Patient is not fluid overloaded but is difficult to ascertain given her obesity. Continue to monitor closely. Management of rest of the medical conditions as per primary team and other consultants. Thank you for the consult and allowing me to participate in the care of the patient. Cardiology will continue to follow. Hakeem Jasmine M.D. Interventional Cardiology Documentation for date of: 09/07/24 Subjective Subjective Interval history: Patient examined at bedside today. Overnight on telemetry, patient seems to be rate controlled 80s/90s. She reports no complaints today. She has not had any chest pain or shortness of breath or felt any palpitations. She does say that her heart rate goes up a little high when she uses the restroom in which it did today and went up into the 100s but that is very normal for her. She is not experiencing additional shortness of breath she is RSV positive today. Is wondering when she can go home. She was given a card to follow-up cardiology outpatient. Exam Vital Signs Temp Pulse Resp BP Pulse Ox O2 Del Method O2 Flow Rate 97.7 F 106 H 18 135/81 H 98 Nasal Cannula 2 09/07/24 04:00 09/07/24 07:36 09/07/24 07:36 09/07/24 04:00 09/07/24 07:36 09/07/24 04:00 09/07/24 07:36 Narrative Exam General: AAOx3, NAD, morbidly obese female, sitting upright. Pleasant woman HEENT: Moist mucous membranes, conjunctiva clear, EOMI, PERRLA, Cardiovascular: S1, S2, radial pulses +2 bilat, irregularly irregular rhythm but rate controlled Pulmonary: Some wheezing and crackles heard diffusely bilat GI: No tenderness to light or deep palpitation, no guarding, rigidity, rebound tenderness or distension, however abdomen is large due to body habitus Extremities: No presence of trace or pitting edema in lower extremities bilaterally, dorsalis pedis pulses +2 bilaterally Neuro: AAOx3, no focal motor or sensory deficits in the UE or LE bilat Psych: Good judgement, thought and behavior. Cooperative Objective Labs 09/07/24 05:07 09/07/24 05:07 Labs: Laboratory Results - last 24 hr 09/06/24 09/07/24 07:14 05:07 WBC 8.9 RBC 4.38 Hgb 11.0 L Hct 34.6 L MCV 79 L MCH 25.1 MCHC 31.8 RDW Std Deviation 50.5 H Plt Count 227 D Neut % (Auto) 50 Lymph % (Auto) 27 [place] % (Auto) 14 H Eos % (Auto) 8 Baso % (Auto) 0 Neut # (Auto) 4.4 Lymph # (Auto) 2.4 [place] # (Auto) 1.3 H Eos # (Auto) 0.7 H Baso # (Auto) 0.0 Immature Gran # (Auto) 0.09 H Absolute Nucleated RBC 0.00 Immature Gran % 1 H Nucleated RBC % 0 Sodium 136 Potassium 4.1 Chloride 100 Carbon Dioxide 27.9 Anion Gap 8 BUN 13 Creatinine 1.1 Estim Creat Clear Calc 83.4 eGFR 58 L BUN/Creatinine Ratio 12 Glucose 111 H Calculated Osmolality 273 L Calcium 8.8 Corrected Calcium 9.0 Phosphorus 3.2 Magnesium 2.1 Total Bilirubin 0.8 AST 36 H ALT 20 Alkaline Phosphatase 103 Total Protein 6.8 Albumin 3.8 Globulin 3.0 Albumin/Globulin Ratio 1.3 RSV Rapid Positive A Quality Measures Quality Measures none Assessment & Plan Assessment Current Active Medications: Generic Name Dose Route Start Last Admin Trade Name Freq PRN Reason Stop Dose Admin Acetaminophen 650 mg 09/05/24 07:07 Acetaminophen 325 Mg Tablet PO 10/05/24 07:06 Q6HR PRN PAIN 1-3 OR FEVER > 101 Albuterol/Ipratropium 3 ml 09/05/24 00:16 09/07/24 03:55 Albuterol/Ipratropium (Duoneb) Rt Buffy 3 Ml Nebu INH 10/05/24 00:15 3 ml Q2HR PRN Administration SHORTNESS OF BREATH OR WHEEZE Atorvastatin Calcium 80 mg 09/05/24 21:00 09/06/24 20:41 Atorvastatin Calcium 20 Mg Tablet PO 10/05/24 20:59 80 mg HS BLAKE Administration Famotidine 20 mg 09/05/24 09:00 09/06/24 20:40 Famotidine Inj 10 Mg/Ml Vial 2 Ml IVP 10/05/24 08:59 20 mg Q12HR BLAKE Administration Guaifenesin 200 mg 09/06/24 19:13 09/06/24 19:31 Guaifenesin Syrup 200 Mg/10 Ml Udc PO 10/06/24 19:12 200 mg QID PRN Administration COUGH OR CONGESTION Protocol Ciprofloxacin/Dextrose 400 mg in 200 mls @ 200 mls/hr 09/05/24 01:00 09/06/24 21:42 Cipro Ivpb IV 09/12/24 00:59 Infused Q12HR BLAKE Infusion Metoprolol Succinate 100 mg 09/05/24 21:30 09/06/24 20:42 Metoprolol Succinate Xl 25 Mg Tabcr PO 10/05/24 21:29 100 mg BID BLAKE Administration Montelukast Sodium 10 mg 09/05/24 21:00 09/06/24 20:43 Montelukast Sodium 10 Mg Tablet PO 10/05/24 20:59 10 mg HS BLAKE Administration Morphine Sulfate 4 mg 09/05/24 00:16 Morphine Sulf Inj 10 Mg/Ml Vial IVP 09/10/24 00:15 Q4HR PRN PAIN SCALE 7-10 (Severe Nitroglycerin 0.4 mg 09/05/24 00:23 Nitroglycerin 0.4 Mg Subl Btl #25 SL Q5MIN PRN CHEST PAIN Ondansetron HCl 4 mg 09/05/24 00:16 Ondansetron Inj 2 Mg/Ml Inj 2 Ml IV 10/05/24 00:15 Q6H PRN NAUSEA OR VOMITING Protocol Rivaroxaban 20 mg 09/06/24 09:00 09/06/24 08:03 Rivaroxaban 10 Mg Tablet PO 10/06/24 08:59 20 mg QDAY BLAKE Administration Sennosides 1 tab 09/05/24 09:00 09/06/24 08:04 Senna Tablet PO 10/05/24 08:59 Not Given QDAY BLAKE Protocol Plan Assessment Patient is a 59-year-old female with a past medical history significant for coronary artery disease s/p 2 stents 2020, atrial fibrillation on Pradaxa, asthma, hyperlipidemia. Patient used to follow-up with a research home economist in [place] but recently February 2024 and has not established care. Patient presented today with a chief complaint of vomiting and fever. Patient will be admitted for workup and management of SIRS 3/4 rule out sepsis. #Afib with RVR #RSV positive Patient's A-fib is usually rate controlled, is on home metoprolol, was initially on Cardizem every 6 hours as needed, however after leaving [place] she was scheduled to be on Cardizem 120 CD Decompensation could be due to infectious cause as patient has been sick either viral or other source, was 3 out of 4 SIRS positive and came in febrile Says that her most recent echo about 2 weeks ago was normal Potassium today 3.2, mag 2.2 EKG significant for atrial fibrillation with RVR, rate 169 Q waves in V1 and V3. No acute ST changes. [id number]: 3 points; 3.2% stroke risk per year HAS-BLED : 1 points; low risk of bleeding Patient's heart rate has been elevated a bit, however we will continue with metoprolol 100 twice daily at this time Patient's echo shows EF of 50 to 60%, possible diastolic dysfunction however images are not the best due to body habitus Patient is RSV positive, likely reason why she went into A-fib with RVR again Patient will likely stay by primary team to further manage RSV Plan: ? Continue with Xarelto 20 mg by mouth ?Continue with metoprolol XL 100 twice daily ?Keep potassium above 4 and magnesium above 2 #CAD status post 2 stents, 2020 #Essential Hypertension Blood pressure currently in the 150s, was recently taken off her home lisinopril after being in [place] Currently on metoprolol XL 100 twice daily See if cardiac cath reports from [place] have been received Plan: ?Continue home medication metoprolol XL 100 mg twice daily ?Continue with Xarelto 20 mg #? CHF #? OHS vs YUDITH Patient denies sleeping with CPAP and is ever been diagnosed with sleep apnea Patient more likely to have OHS due to morbid obesity, however unsure if patient is chronic CO2 retainer as there is no ABG Patient is not pitting, however is on home oxygen, patient says recent echo was normal however may have component of CHF Plan: ?Recommend outpatient sleep study #SIRS 3/4 #Vomiting?resolving #Rule out sepsis #Likely Viral Pneumonia #Rule our infected R Ureter stent #Asthma #Obesity class III #Hypophosphatemia Management above by primary hospitalist team Patient seen and care discussed with my attending physician, Dr. Mitali Aguila, PGY-1
[2024-09-07] MEDS: FAMOTIDINE INJ 10 MG/ML VIAL 2 ML 20 MG IVP ×2 (08:40→20:57)
[2024-09-07] MEDS: CIPROFLOXACIN/D5w 400 MG IVPB 400 MG/200 ML BAG 200 MG IV ×2 (08:42→20:57)
[2024-09-07] MEDS: METOPROLOL SUCCINATE XL 25 MG TABCR 100 MG PO ×2 (08:44→20:57)
[2024-09-07] MEDS: RIVAROXABAN 10 MG TABLET 20 MG PO (08:44)
[2024-09-07] MEDS: guaiFENesin SYRUP 200 MG/10 ML UDC PO ×2 (09:28→21:11)
--- NOTE | 2024-09-07 11:05 | PC.NURSE ---
Pt HR variable 120s-160, in no distress. Dr. Clark notified no new orders at this time.
--- NOTE | 2024-09-07 13:54 | ESPR_ITS ---
<Statement entered by Kurt Knight MD - 09/07/24 18:27> patient was examined bedside this morning, urine culture came back positive, continue current management . will manage a.fib I discussed with and supervised my co-resident involved in the care of this patient. I agree with the assessment and plan as documented above. Kurt Knight,PGY-3 Disclaimer: Despite multiple revisions, due to the dictation software being used, the document below may not be free of grammatical errors including phonetic/typographic errors. However, this does not deter from our commitment to providing health care in the patient's best interest in mind. Documentation for date of: 09/07/24 Subjective Subjective Interval history: Patient seen at bedside this morning. No overnight events. Patient states that she feels fine, but has been having worsening cough which has been alleviated with guaifenesin. Patient's RSV did come back positive and therefore she is on contact and droplet precautions. Patient is still not rate controlled as her heart rate and her went up to the 160s. Urine cultures grew E.coli. Otherwise no other complaints at this time. Patient was consulted close outpatient follow- up with urologist for her ureter stent and she stated that she was going to schedule the appointment as she was going to follow-up before coming to the hospital. Exam Vital Signs Temp Pulse Resp BP Pulse Ox O2 Del Method O2 Flow Rate 97.6 F 100 29 H 112/91 H 99 Nasal Cannula 2 09/07/24 08:00 09/07/24 10:41 09/07/24 10:41 09/07/24 08:44 09/07/24 10:41 09/07/24 08:00 09/07/24 10:41 Narrative Exam General: A/O x3, no acute distress, obese Eyes: PERRL, EOMI. Anicteric, vision grossly intact. Ears: No ear pain, no ear discharge, Hearing grossly intact. Nose: No nasal discharge. Mouth/Throat: Dry mucous membranes, no redness, no lesions. Neck: Neck supple, non-tender, no cervical lymphadenopathy. Lungs: Diminished GOYO lower lobes likely due to body habitus and crackles in GOYO Upper lobes, No accessory muscle use. Cardio: Normal S1/S2, irregular rhythm, no murmurs, no JVD or carotid bruits. Abdomen: Soft, non-tender, no palpable masses, peristalsis present, no guarding or rebound. Extremities: Symmetrical, no significant deformities, no peripheral edema , non-tender, peripheral pulses presents. Skin: No rashes, no lesions, warm to touch. Neuro: No focal neurological deficits. motor and sensory intact Psych: Cooperative, appropriate mood and effect. Objective Labs 09/07/24 05:07 09/07/24 05:07 Labs: Laboratory Results - last 24 hr 09/07/24 05:07 WBC 8.9 RBC 4.38 Hgb 11.0 L Hct 34.6 L MCV 79 L MCH 25.1 MCHC 31.8 RDW Std Deviation 50.5 H Plt Count 227 D Neut % (Auto) 50 Lymph % (Auto) 27 [place] % (Auto) 14 H Eos % (Auto) 8 Baso % (Auto) 0 Neut # (Auto) 4.4 Lymph # (Auto) 2.4 [place] # (Auto) 1.3 H Eos # (Auto) 0.7 H Baso # (Auto) 0.0 Immature Gran # (Auto) 0.09 H Absolute Nucleated RBC 0.00 Immature Gran % 1 H Nucleated RBC % 0 Sodium 136 Potassium 4.1 Chloride 100 Carbon Dioxide 27.9 Anion Gap 8 BUN 13 Creatinine 1.1 Estim Creat Clear Calc 83.4 eGFR 58 L BUN/Creatinine Ratio 12 Glucose 111 H Calculated Osmolality 273 L Calcium 8.8 Corrected Calcium 9.0 Phosphorus 3.2 Magnesium 2.1 Total Bilirubin 0.8 AST 36 H ALT 20 Alkaline Phosphatase 103 Total Protein 6.8 Albumin 3.8 Globulin 3.0 Albumin/Globulin Ratio 1.3 Quality Measures Quality Measures none Assessment & Plan Assessment Current Active Medications: Generic Name Dose Route Start Last Admin Trade Name Freq PRN Reason Stop Dose Admin Acetaminophen 650 mg 09/05/24 07:07 Acetaminophen 325 Mg Tablet PO 10/05/24 07:06 Q6HR PRN PAIN 1-3 OR FEVER > 101 Albuterol/Ipratropium 3 ml 09/05/24 00:16 09/07/24 10:39 Albuterol/Ipratropium (Duoneb) Rt Buffy 3 Ml Nebu INH 10/05/24 00:15 3 ml Q2HR PRN Administration SHORTNESS OF BREATH OR WHEEZE Atorvastatin Calcium 80 mg 09/05/24 21:00 09/06/24 20:41 Atorvastatin Calcium 20 Mg Tablet PO 10/05/24 20:59 80 mg HS BLAKE Administration Famotidine 20 mg 09/05/24 09:00 09/07/24 08:40 Famotidine Inj 10 Mg/Ml Vial 2 Ml IVP 10/05/24 08:59 20 mg Q12HR BLAKE Administration Guaifenesin 200 mg 09/06/24 19:13 09/07/24 09:28 Guaifenesin Syrup 200 Mg/10 Ml Udc PO 10/06/24 19:12 200 mg QID PRN Administration COUGH OR CONGESTION Protocol Ciprofloxacin/Dextrose 400 mg in 200 mls @ 200 mls/hr 09/05/24 01:00 09/07/24 08:42 Cipro Ivpb IV 09/12/24 00:59 200 mls/hr Q12HR BLAKE Administration Metoprolol Succinate 100 mg 09/05/24 21:30 09/07/24 08:44 Metoprolol Succinate Xl 25 Mg Tabcr PO 10/05/24 21:29 100 mg BID BLAKE Administration Montelukast Sodium 10 mg 09/05/24 21:00 09/06/24 20:43 Montelukast Sodium 10 Mg Tablet PO 10/05/24 20:59 10 mg HS BLAKE Administration Morphine Sulfate 4 mg 09/05/24 00:16 Morphine Sulf Inj 10 Mg/Ml Vial IVP 09/10/24 00:15 Q4HR PRN PAIN SCALE 7-10 (Severe Nitroglycerin 0.4 mg 09/05/24 00:23 Nitroglycerin 0.4 Mg Subl Btl #25 SL Q5MIN PRN CHEST PAIN Ondansetron HCl 4 mg 09/05/24 00:16 Ondansetron Inj 2 Mg/Ml Inj 2 Ml IV 10/05/24 00:15 Q6H PRN NAUSEA OR VOMITING Protocol Rivaroxaban 20 mg 09/06/24 09:00 09/07/24 08:44 Rivaroxaban 10 Mg Tablet PO 10/06/24 08:59 20 mg QDAY BLAKE Administration Sennosides 1 tab 09/05/24 09:00 09/07/24 08:45 Senna Tablet PO 10/05/24 08:59 Not Given QDAY BLAKE Protocol Plan 59-year-old female with past medical history of CAD s/p stents, A-fib (on Pradaxa), urolithiasis s/p stent, asthma, hypertension, and hyperlipidemia was admitted to the hospital on 09/05/2024 due to complicated UTI, community-acquired pneumonia, and concerns for sepsis as well as A-fib with RVR not rate controlled. #Complicated UTI, E. Coli #Community-acquired pneumonia, RSV positive #Concern for sepsis #Hx of urolithiasis s/p stent ?Patient came in and met SIRS criteria 3 out of 4 with tachycardia, fever, and leukocytosis. -DDX sepsis likley 2/2 UTI vs CAP ? Chest x-ray showed pneumonia ? UA was positive bacteria ? Abdomen/Pelvis CT showed stent in the right ureter and has mild right hydronephrosis with 11 mm kidney stone adjacent to the stent. -RSV positive - urine cultures grew E. Coli Plan: ? Continue ciprofloxacin 400 mg IV every 12 [09/05/2024?] ?Pending blood cultures ?Pending sputum cultures ? Will continue to monitor #A-fib with RVR (on Pradaxa) #Hx of CAD s/p stents ? Patient came in with feelings of palpitations initially and her EKG did show A-fib with RVR. ? [id number] of 3 points ? HAS-BLED of 1 point ?Discontinue diltiazem drip -Echo on 08/2024 showed EF 55-60% Plan: ? Will continue metoprolol 100 mg XL BID ? Will Continue patient on Xarelto 20 mg daily ? Cardiology consulted, pursue recommendations #Hypokalemia ? Potassium 4.1 today Plan: ? Will continue to replete as necessary #Normocytic normochromic anemia ? Hemoglobin 11 today ? Patient's hemoglobin is 12 at baseline ? Most likely hemodilutional Plan: ?Will transfuse hemoglobin less than 7 ? Will continue to monitor #Hypertension ? Patient's blood pressure has been well-controlled ? Continue metoprolol XL 100 mg BID #Hx of hyperlipidemia ? Continue patient's atorvastatin Disposition: Patient admitted to telemetry, continue Metoprolol Xl 100 mg BID and Xarelto for A-fib, continue Abx. Diet: cardiac GI prophylaxis: not indicated DVT prophylaxis: on xarelto Code: full Case disclosed with Attending Dr. Clark and My senior Dr. Knight PGY3 Abelardo Ramirez PGY1 Attending Provider Attestation/Addendum I have examined the patient, reviewed labs and imaging findings, discussed the case with the resident(s), and reviewed entered orders. I agree with the plan of care as outlined in this note, with these additional summaries/recommendations: Patient seen at bedside. No acute overnight events. Patient reports she is feeling better although did endorse palpitations while ambulating to bathroom today. She denies chest pain but continues to endorse significant productive cough. RSV returned positive. Patient admitted for atrial fibrillation with rapid ventricular response. History of known atrial fibrillation. EKG on admission showed rates into the 160s. Cardiology was consulted. Patient s/p diltiazem gtt. Patient transitioned to oral metoprolol succinate 100 mg BID. Patients pulse remains labilewith rates into the 130s today and we will discuss adjusting regimen with cardiology as patient still have episodes of RVR at times. Continue Xarelto. Home pradaxa discontinued. Pharmacy reports xarelto is covered by insurance. Patient has extensive cardiac history. Continue to monitor on telemetry & echocardiogram showed EF 55-60%. Continue to replete electrolytes as needed. On admission patient was found to have a mild pneumonia right base likely secondary to GNR's and urinalysis indicative of urinary tract infection. Continue IV antibiotic. Blood cxs no growth at 48hrs, urine cx grew E. Coli, and sputum culture grew yeast which is most likely noncontributory. CT abdomen at time of admission showed right ureteral stent, minimal right hydronephrosis, and a 11 mm calculus adjacent to midportion of right ureteral stent. Patient in agreement to make appointment with her urologist in [place] on 09/10/2024. Continue home atorvastatin. LDL at goal of 68. Continue inhalers as needed for history of asthma. Patient counseled on weight loss and outpatient follow-up. Repeat hematology and chemistry panel in AM. Dr. Clark
[2024-09-07] MEDS: DILTIAZEM CD 120 MG CAPCR PO (18:29)
[2024-09-07] MEDS: ATORVASTATIN CALCIUM 20 MG TABLET 80 MG PO (20:57)
[2024-09-07] MEDS: MONTELUKAST SODIUM 10 MG TABLET PO (20:58)
[2024-09-08] VITALS (8 sets, daily range): BP systolic 96–117; BP diastolic 61–87; PULSE 60–99; RESP 16–25; TEMP 36.4–36.6; O2SAT 93–100; BMI 63.9
[2024-09-08] MEDS: ALBUTEROL/IPRATROPIUM (Duoneb) RT SOL 3 ML NEBU INH ×2 (03:44→12:56)
[2024-09-08 06:33] LABS: Basophils % (Auto) 0 % (0-2.5); Eosinophils % (Auto) 11 % (0-10); Hematocrit 34.3 % (36.0-46.0); Hemoglobin 10.8 g/dL (12.0-16.0); Immature Granulocytes % (Auto) 1 % (0-0); Immature Granulocytes Auto 0.06 Thou/mm3 (0.00-0.00); Lymphocytes # (Auto) 2.5 Thou/mm3 (1.0-4.8); Lymphocytes % (Auto) 29 % (10-50); Mean Corpuscular HGB Conc 31.5 g/dl (31.0-37.0); Mean Corpuscular Hemoglobin 25.5 pg (25.0-35.0); Mean Corpuscular Volume 81 fL (80-100); Monocytes # (Auto) 1.1 Thou/mm3 (0.0-0.8); Monocytes % (Auto) 13 % (0-12); Neutrophils # (Auto) 3.9 Thou/mm3 (1.8-7.7); Neutrophils % (Auto) 46 % (37-80); Nucleated Red Blood Cell % 0 /100 WBC (0); Platelet Count 223 Thou/mm3 (140-440); RDW Standard Deviation 51.1 fL (36.4-46.3); Red Blood Count 4.23 Miln/mm3 (4.00-5.20); White Blood Count 8.5 Thou/mm3 (3.6-11.0)
[2024-09-08 07:09] LABS: Alanine Aminotransferase 25 U/L (10-49); Albumin, Serum 3.9 gm/dL (3.4-4.8); Albumin/Globulin Ratio 1.3 (1.2-2.2); Alkaline Phosphatase 102 U/L (46-116); Anion Gap 4 (7-16); Aspartate Amino Transferase 45 U/L (0-34); BUN/Creatinine Ratio 14 Ratio (12-20); Bilirubin,Total 0.6 mg/dL (0.3-1.2); Blood Urea Nitrogen 14 mg/dL (9-23); Calcium (Corrected) 9.1 mg/dL (8.5-10.1); Carbon Dioxide 28.9 mMol/L (20.0-31.0); Chloride 103 mMol/L (98-107); Estimated Creatinine Clearance 90.2 mL/min (>60); Globulin 2.9 gm/dL (2.3-3.5); Glucose 116 mg/dL (74-106); Osmolality,Calculated 273 (275-295); Phosphorous 3.6 mg/dL (2.4-5.1); Potassium 4.3 mMol/L (3.4-5.1); Sodium 136 mMol/L (136-145); Total Protein 6.8 gm/dL (5.7-8.2); eGFR > 60 See Note
[2024-09-08] MEDS: ACETAMINOPHEN 325 MG TABLET 650 MG PO (07:10)
[2024-09-08] MEDS: FAMOTIDINE INJ 10 MG/ML VIAL 2 ML 20 MG IVP (09:09)
[2024-09-08] MEDS: DILTIAZEM CD 120 MG CAPCR PO (09:10)
[2024-09-08] MEDS: METOPROLOL SUCCINATE XL 25 MG TABCR 100 MG PO (09:10)
[2024-09-08] MEDS: RIVAROXABAN 10 MG TABLET 20 MG PO (09:10)
[2024-09-08] MEDS: CIPROFLOXACIN/D5w 400 MG IVPB 400 MG/200 ML BAG 200 MG IV (09:12)
[2024-09-08] MEDS: guaiFENesin SYRUP 200 MG/10 ML UDC PO (09:50)
[2024-09-08 11:58] LABS: Magnesium 2.1 mg/dL (1.6-2.6)
--- NOTE | 2024-09-08 12:54 | ESPR_ITS ---
<Statement entered by Hakeem Jasmine MD - 09/09/24 05:22> I have personally seen and examined the patient separately on the above date of service and discussed the plan of care with the resident. I reviewed the resident Dr. Millan consultation progress note and agree with the resident findings and plan in the note above and have also edited the documentation to reflect my findings and plan. Patient presented with atrial fibrillation with RVR and was initially on diltiazem drip and was changed to metoprolol XL 100 mg twice daily and rate appears to be decently controlled and will continue to monitor for now. Recommend to keep potassium greater than 4 and magnesium greater than 2.0 at all times. Etiology of the RVR possibly secondary to infection given her recent UTI and also concern for pneumonia at the present point of time but patient has been diagnosed with RSV infection and is on contact precautions. Patient started to ambulate today and her heart rate was elevated up to 140 bpm while ambulation. Uncontrolled heart rate probably secondary to the active RSV infection and recommended to Cardizem CD 120 mg daily in addition to metoprolol XL 100 mg twice daily. As noted previously patient chads Vascor is elevated and has bled score is low. Patient was on Pradaxa 150 mg twice daily and recommend to change to Xarelto 20 mg once daily if patient insurance approved for the same as the patient is greater than 150 kg. Patient is not on any rhythm control medications and would continue with the rate control for now unclear if patient has persistent chronic atrial fibrillation versus permanent atrial fibrillation. Okay to discharge from cardiac obstructive on metoprolol XL 100 twice daily as well as Cardizem CD 120 mg once daily Echocardiogram completed on 09/05/2024 showed suboptimal images due to body habitus and overall poor image quality and limited images. Possible normal LV, RV size and function and estimated EF around 55 to 60%. Cannot determine diastolic function as well as valvular abnormalities because of the poor images. Patient does have a history of CAD status post 2 stents in 2020 placed in [place]. Patient states that she was at [facility] and all her cardiac records are also at the same hospital and recommend the primary team to call her cardiac records as she moved here permanently to [place] and will be following up with the doctors over here closely. Patient possibly has diastolic congestive heart failure given her overall history of A-fib and echo does not show evidence of systolic heart failure but poor images to describe any regional wall motion abnormalities. Recommend to continue strict input output, daily weights and 2 g sodium diet for now. Patient is not fluid overloaded but is difficult to ascertain given her obesity. Continue to monitor closely. Management of rest of the medical conditions as per primary team and other consultants. Thank you for the consult and allowing me to participate in the care of the patient. Cardiology will continue to follow. Hakeem Jasmine M.D. Interventional Cardiology Documentation for date of: 09/08/24 Subjective Subjective Interval history: Patient examined at bedside today. Overnight events on telemetry include patient still being in A-fib, rate in the 120s 130s. Patient says she has no complaints at this time, denies any chest pain, shortness of breath, however still experiencing a cough. Has not noticed any chest palpitations. She is wondering if she is in a go home today. No other complaints this time. Exam Vital Signs Temp Pulse Resp BP Pulse Ox O2 Del Method O2 Flow Rate 97.8 F 91 18 117/87 H 96 Nasal Cannula 2 09/08/24 12:00 09/08/24 12:00 09/08/24 12:00 09/08/24 12:00 09/08/24 12:00 09/08/24 12:00 09/08/24 12:00 Narrative Exam General: AAOx3, NAD, morbidly obese female, sitting upright. Pleasant woman HEENT: Moist mucous membranes, conjunctiva clear, EOMI, PERRLA, Cardiovascular: S1, S2, radial pulses +2 bilat, irregularly irregular rhythm, tachycardic Pulmonary: Some wheezing and crackles heard diffusely bilat GI: No tenderness to light or deep palpitation, no guarding, rigidity, rebound tenderness or distension, however abdomen is large due to body habitus Extremities: No presence of trace or pitting edema in lower extremities bilaterally, dorsalis pedis pulses +2 bilaterally Neuro: AAOx3, no focal motor or sensory deficits in the UE or LE bilat Psych: Good judgement, thought and behavior. Cooperative Objective Labs 09/08/24 06:13 09/08/24 06:13 Labs: Laboratory Results - last 24 hr 09/08/24 06:13 WBC 8.5 RBC 4.23 Hgb 10.8 L Hct 34.3 L MCV 81 MCH 25.5 MCHC 31.5 RDW Std Deviation 51.1 H Plt Count 223 Neut % (Auto) 46 Lymph % (Auto) 29 [place] % (Auto) 13 H Eos % (Auto) 11 H Baso % (Auto) 0 Neut # (Auto) 3.9 Lymph # (Auto) 2.5 [place] # (Auto) 1.1 H Eos # (Auto) 1.0 H Baso # (Auto) 0.0 Immature Gran # (Auto) 0.06 H Absolute Nucleated RBC 0.00 Immature Gran % 1 H Nucleated RBC % 0 Sodium 136 Potassium 4.3 Chloride 103 Carbon Dioxide 28.9 Anion Gap 4 L BUN 14 Creatinine 1.0 Estim Creat Clear Calc 90.2 eGFR > 60 BUN/Creatinine Ratio 14 Glucose 116 H Calculated Osmolality 273 L Calcium 9.0 Corrected Calcium 9.1 Phosphorus 3.6 Magnesium 2.1 Total Bilirubin 0.6 AST 45 H ALT 25 Alkaline Phosphatase 102 Total Protein 6.8 Albumin 3.9 Globulin 2.9 Albumin/Globulin Ratio 1.3 Quality Measures Quality Measures none Assessment & Plan Assessment Current Active Medications: Generic Name Dose Route Start Last Admin Trade Name Freq PRN Reason Stop Dose Admin Acetaminophen 650 mg 09/05/24 07:07 09/08/24 07:10 Acetaminophen 325 Mg Tablet PO 10/05/24 07:06 650 mg Q6HR PRN Administration PAIN 1-3 OR FEVER > 101 Albuterol/Ipratropium 3 ml 09/05/24 00:16 09/08/24 03:44 Albuterol/Ipratropium (Duoneb) Rt Buffy 3 Ml Nebu INH 10/05/24 00:15 3 ml Q2HR PRN Administration SHORTNESS OF BREATH OR WHEEZE Atorvastatin Calcium 80 mg 09/05/24 21:00 09/07/24 20:57 Atorvastatin Calcium 20 Mg Tablet PO 10/05/24 20:59 80 mg HS BLAKE Administration Diltiazem HCl 120 mg 09/07/24 18:30 09/08/24 09:10 Diltiazem Cd 120 Mg Capcr PO 10/07/24 18:29 120 mg QDAY BLAKE Administration Famotidine 20 mg 09/05/24 09:00 09/08/24 09:09 Famotidine Inj 10 Mg/Ml Vial 2 Ml IVP 10/05/24 08:59 20 mg Q12HR BLAKE Administration Guaifenesin 200 mg 09/06/24 19:13 09/08/24 09:50 Guaifenesin Syrup 200 Mg/10 Ml Udc PO 10/06/24 19:12 200 mg QID PRN Administration COUGH OR CONGESTION Protocol Ciprofloxacin/Dextrose 400 mg in 200 mls @ 200 mls/hr 09/05/24 01:00 09/08/24 09:12 Cipro Ivpb IV 09/12/24 00:59 200 mls/hr Q12HR BLAKE Administration Metoprolol Succinate 100 mg 09/05/24 21:30 09/08/24 09:10 Metoprolol Succinate Xl 25 Mg Tabcr PO 10/05/24 21:29 100 mg BID BLAKE Administration Montelukast Sodium 10 mg 09/05/24 21:00 09/07/24 20:58 Montelukast Sodium 10 Mg Tablet PO 10/05/24 20:59 10 mg HS BLAKE Administration Morphine Sulfate 4 mg 09/05/24 00:16 Morphine Sulf Inj 10 Mg/Ml Vial IVP 09/10/24 00:15 Q4HR PRN PAIN SCALE 7-10 (Severe Nitroglycerin 0.4 mg 09/05/24 00:23 Nitroglycerin 0.4 Mg Subl Btl #25 SL Q5MIN PRN CHEST PAIN Ondansetron HCl 4 mg 09/05/24 00:16 Ondansetron Inj 2 Mg/Ml Inj 2 Ml IV 10/05/24 00:15 Q6H PRN NAUSEA OR VOMITING Protocol Rivaroxaban 20 mg 09/06/24 09:00 09/08/24 09:10 Rivaroxaban 10 Mg Tablet PO 10/06/24 08:59 20 mg QDAY BLAKE Administration Sennosides 1 tab 09/05/24 09:00 09/08/24 09:16 Senna Tablet PO 10/05/24 08:59 Not Given QDAY BLAKE Protocol Plan Assessment Patient is a 59-year-old female with a past medical history significant for coronary artery disease s/p 2 stents 2020, atrial fibrillation on Pradaxa, asthma, hyperlipidemia. 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 Patient presented today with a chief complaint of vomiting and fever. Patient will be admitted for workup and management of SIRS 3/4 rule out sepsis. #Afib with RVR #RSV positive Patient's A-fib is usually rate controlled, is on home metoprolol, was initially on Cardizem every 6 hours as needed, however after leaving [place] she was scheduled to be on Cardizem 120 CD Decompensation could be due to infectious cause as patient has been sick either viral or other source, was 3 out of 4 SIRS positive and came in febrile Says that her most recent echo about 2 weeks ago was normal Potassium today 3.2, mag 2.2 EKG significant for atrial fibrillation with RVR, rate 169 Q waves in V1 and V3. No acute ST changes. [id number]: 3 points; 3.2% stroke risk per year HAS-BLED : 1 points; low risk of bleeding Patient's heart rate has been elevated a bit, however we will continue with metoprolol 100 twice daily at this time Patient's echo shows EF of 50 to 60%, possible diastolic dysfunction however images are not the best due to body habitus Patient is RSV positive, likely reason why she went into A-fib with RVR again Patient will likely stay by primary team to further manage RSV Patient seems to be a bit tachycardic at this point, we will continue with current management. To reach therapeutic of medicines, will need about 4 doses Plan: ? Continue with Xarelto 20 mg by mouth ?Continue with metoprolol XL 100 twice daily ?Continue with Cardizem CD 120 mg ?Keep potassium above 4 and magnesium above 2 #CAD status post 2 stents, 2020 #Essential Hypertension Blood pressure currently in the 150s, was recently taken off her home lisinopril after being in [place] Currently on metoprolol XL 100 twice daily See if cardiac cath reports from [place] have been received Plan: ?Continue home medication metoprolol XL 100 mg twice daily ?Continue with Xarelto 20 mg #? CHF #? OHS vs YUDITH Patient denies sleeping with CPAP and is ever been diagnosed with sleep apnea Patient more likely to have OHS due to morbid obesity, however unsure if patient is chronic CO2 retainer as there is no ABG Patient is not pitting, however is on home oxygen, patient says recent echo was normal however may have component of CHF Plan: ?Recommend outpatient sleep study #SIRS 3/4 #Vomiting?resolving #Rule out sepsis #Likely Viral Pneumonia #Rule our infected R Ureter stent #Asthma #Obesity class III #Hypophosphatemia Management above by primary hospitalist team Patient seen and care discussed with my attending physician, Dr. Mitali Aguila, PGY-1
--- NOTE | 2024-09-08 13:11 | PC.SS ---
SS met pt at bedside using all necessary precautions; pt has O2 at home and contacted spouse while SS in room to make sure he brought O2. Pt does not have a preference for HH.
--- NOTE | 2024-09-08 15:55 | ESDS_ITS ---
Planned Discharge Date 09/08/24 DS: Providers Provider Date of admission: 09/05/24 00:16 Primary care physician: Physician No Primary/Family Admitting Provider: Harsha Arambula MD Attending Provider on Admission: Chema Clark MD Consults: 09/05/24 03:07 Referral Registered Dietitian Routine Comment: Obesity Class III. BMI 66 09/05/24 05:10 Consult to Cardiology Routine Comment: Afib RVR Consulting Provider: Hakeem Jasmine Attending Provider on DC: Helio Urbina MD Discharging Provider: Helio Urbina MD DS: Diagnosis Problem List Completed Was Problem List Reviewed/Reconciled?: Yes Hospital Course Hospital Course Hospital course: Patient is a 59-year-old female with a past medical history significant for coronary artery disease s/p 2 stents 2020, atrial fibrillation on Pradaxa, asthma, essential HTN, hyperlipidemia presented with c/o vomiting and fever. 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 She was found to have 3/4 SIRS criteria and was diagnosed with sepsis secondary to UTI. She was treated with IV ciprofloxacin, and her urine culture was pansensitive. She was also found to have A-fib with RVR. The patient's metoprolol succinate dose was increased to 100 Mg twice daily. Abdomen/Pelvis CT showed stent in the right ureter and has mild right hydronephrosis with 11 mm kidney stone adjacent to the stent. Echo revealed LVEF 55-60%. This morning, her vitals were labs were stable. Her discharge plan was discussed with her and she agreed with the plans. She was discharged home. Problems: #Complicated UTI, E. Coli #Community-acquired pneumonia, RSV positive #Concern for sepsis #Hx of urolithiasis s/p stent #A-fib with RVR (on Pradaxa) #Hx of CAD s/p stents #Hypokalemia #Normocytic normochromic anemia #Hypertension #Hx of hyperlipidemia Plans: Please follow-up with your PCP within 1 week of discharge Please follow-up with urologist as soon as possible for renal stones Follow-up with your bindery machine setter within 1 week of discharge. You have been started on ciprofloxacin 500 Mg twice daily for urinary tract infection You have also been started on as needed albuterol inhalation for shortness of breath We have switched your metoprolol succinate from 50 Mg twice daily to 100 Mg twice daily We have switched your Pradaxa 150 Mg twice daily to Xarelto 20 Mg daily Continue with all other medicines as prescribed Recommended to return back to emergency department if your symptoms persist or does not improve Time Spent with Patient Time attestation: Total time spent providing and/or coordinating discharge services: > 35 min Exam Vital Signs Temp Pulse Resp BP Pulse Ox O2 Del Method O2 Flow Rate 97.8 F 92 25 H 117/87 H 100 Nasal Cannula 2 09/08/24 12:00 09/08/24 12:59 09/08/24 12:59 09/08/24 12:00 09/08/24 12:59 09/08/24 12:00 09/08/24 12:59 Narrative Exam General: No acute distress, Alert and Oriented x 3 HEENT: Moist mucous membranes, oropharynx clear Neck: Supple, No masses, No JVD CVS: Irregularly irregular rate and rhythm, No murmurs, rubs or gallops Lungs: Clear to auscultation with no accessory use, no wheeze no rhonchi Abd: Soft, NT/ND, +BS, no organomegaly Ext: No edema, warm and well perfused Skin: No rash Psych: Appropriate mood and affect Discharge Plan Plan Patient Disposition: HOME (Self Care) Patient condition on transfer: Stable Care Plan Goals: Please follow-up with your PCP within 1 week of discharge Please follow-up with urologist as soon as possible for renal stones Follow-up with your bindery machine setter within 1 week of discharge. You have been started on ciprofloxacin 500 Mg twice daily for urinary tract infection You have also been started on as needed albuterol inhalation for shortness of breath We have switched your metoprolol succinate from 50 Mg twice daily to 100 Mg twice daily We have switched your Pradaxa 150 Mg twice daily to Xarelto 20 Mg daily Continue with all other medicines as prescribed Recommended to return back to emergency department if your symptoms persist or does not improve Prescriptions/Referrals Prescriptions/Med Rec: New metoprolol succinate 100 mg tablet extended release 24 hr 100 mg PO BID 30 Days Qty: 60 3RF Xarelto 20 mg tablet 20 mg PO QDAY 30 Days Qty: 30 3RF ciprofloxacin HCl 500 mg tablet 500 mg PO BID Qty: 14 0RF albuterol sulfate [Ventolin HFA] 90 mcg/actuation HFA aerosol inhaler 2 puff inhalation Q6H PRN (Reason: shortness of breath or wheezing) Qty: 6.7 2RF Continued atorvastatin 80 mg tablet 80 mg PO DAILY Patient Comments: TAKE 1 TABLET BY MOUTH ONCE DAILY magnesium oxide 400 mg (241.3 mg magnesium) tablet 800 mg PO DAILY Patient Comments: TAKE 2 TABLETS BY MOUTH ONCE DAILY FOR 14 DAYS Rx Instructions: for 14 days diltiazem HCl 120 mg capsule,extended release 24hr 120 mg PO DAILY Patient Comments: TAKE 1 CAPSULE BY MOUTH ONCE DAILY Discontinued metoprolol tartrate 50 mg Tablet 50 mg PO QDAY dabigatran etexilate [Pradaxa] 150 mg Capsule 150 mg PO BID Referrals: No Primary/Family,Physician [Primary Care Provider] - Patient/Caregiver Discharge Instructions Discharge Activity: activity as tolerated Education Materials: Diabetes and Heart Disease, AFL/Afib, Calcium Channel Blockers Dc, Women and Heart Disease ... Print Language: Estonian Stand Alone Forms: Isabel Award Info., Patient Portal Info Letter Discharge Order Discharge Orders: Discharge (Routine); Ordered 09/08/24 Ordered By: Helio Urbina Quality Discharge Quality Measures VTE prophylaxis MD Attestestation MD Attestation I have examined the patient, reviewed labs and imaging findings, discussed the case with the resident(s), and reviewed entered orders. I agree with the plan of care as outlined in this note. Dr. Clark
== END 2024-09-08 15:32 | disposition home or self-care (01) | DRG 720 ==
LOC: SERX 09-05 00:37 → SERHOLD 09-05 00:40 → S3NX 09-05 21:42
PROVIDERS: Registered Nurse General Practice; Student in an Organized Health Care Education/Training Program; Admitting Provider Internal Medicine; Emergency Provider Emergency Medicine; Visit Provider Student in an Organized Health Care Education/Training Program
DX: A41.9 Sepsis, unspecified organism (principal); Z68.44 Body mass index [BMI] 60.0-69.9, adult; Z95.5 Presence of coronary angioplasty implant and graft; I25.10 Atherosclerotic heart disease of native coronary artery without angina pectoris; E78.5 Hyperlipidemia, unspecified; I10 Essential (primary) hypertension; J45.909 Unspecified asthma, uncomplicated; E66.813 Obesity, class 3; J12.9 Viral pneumonia, unspecified; E83.39 Other disorders of phosphorus metabolism; G47.33 Obstructive sleep apnea (adult) (pediatric); I48.19 Other persistent atrial fibrillation; Z79.01 Long term (current) use of anticoagulants; N13.6 Pyonephrosis; E87.6 Hypokalemia; D64.9 Anemia, unspecified; B96.20 Unspecified Escherichia coli [E. coli] as the cause of diseases classified elsewhere; J12.1 Respiratory syncytial virus pneumonia; Z87.442 Personal history of urinary calculi; Z96.0 Presence of urogenital implants
CPT/HCPCS: 36415; 71045; 74176; 80053; 80061; 81001; 83036; 83605; 83615; 83690; 83735; 83880; 84100; 84145; 84443; 84484; 85025; 85610; 85730; 87040; 87077; 87081; 87086; 87186; 87205; 87400; 87634; 87811; 93005; 93225; 93306; 94640; 94664; 96360; 96361; 96365; 96366; 96367; 96368; 99285; A9270; J0696; J0744; J3475; J3490; J7030; J7050; J7999

== ENCOUNTER 2025-04-13 09:49 | Emergency (ER) | payer MEDICAID, SELFPAY ==
[2025-04-13 09:58] VITALS: BP 144/87; PULSE 109; RESP 18; TEMP 38.5; O2SAT 95; BMI 60.2
--- NOTE | 2025-04-13 10:15 | XR_ITS ---
Examination: AP chest single view Technique one AP portable upright chest single view Date and time: April 13, 2025, 11:16 PM, comparison September 04, 2024. Indications: Chest pain beginning 2 days ago. Findings: Mild enlargement cardiac contour. Mild vascular congestion. Minor atelectasis in the lower lung zones. No lobar pneumonia or pulmonary edema. Impression: Mild enlargement cardiac contour. Mild vascular congestion.
--- NOTE | 2025-04-13 10:15 | EKG_ITS ---
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: : 1965 Requested By: Lily Steele Order Number: [id number] Reading MD: Lily Steele Measurements Intervals [place] Rate: 129 P: MT: QRS: -30 QRSD: 68 T: 2 QT: 273 QTc: 401 Interpretive Statements ATRIAL FIBRILLATION WITH RAPID VENTRICULAR RESPONSE LOW QRS VOLTAGE IN PRECORDIAL LEADS [QRS DEFLECTION < 1.0 mV IN CHEST LEADS] ANTERIOR MYOCARDIAL INFARCTION , PROBABLY OLD [40+ ms Q WAVE AND/OR ST/T ABNORMALITY IN V3/V4] INFERIOR MYOCARDIAL INFARCTION , PROBABLY OLD [40+ ms Q WAVE AND/OR ST/T ABNORMALITY IN II/aVF] Compared to ECG 09/04/2024 16:04:04 No significant changes /store/S0/[id number]/ecg/[id number].pdf
--- NOTE | 2025-04-13 10:16 | PD.EDRME ---
Rapid Medical Screening Exam E Arrival date/time: 04/13/25 09:49 This is a 60-year-old female that comes into the emergency room with complaints of shortness of breath and rapid heart rate. Patient does have a history of atrial fibrillation. Patient states her heart rate has gone up to the 160s recently. Patient is febrile in triage today. Patient states that she was recently diagnosed with COVID-19. Patient states the diagnosis was made about a week ago. Patient also has a history of hyperlipidemia and high blood pressure. I have greeted and performed a focused initial assessment of this patient. Initial appropriate labs ordered at this time. A comprehensive ED assessment and evaluation of the patient and analysis of all test and completion of medical decision making process will be conducted by additional ED provider. Chief Complaint: Arrhythmia/Palpitations Time Seen by Provider: 04/13/25 10:14 Vital signs: Vital Signs Temperature 101.3 F H 04/13/25 09:58 Pulse Rate 109 H 04/13/25 09:58 Respiratory Rate 18 04/13/25 09:58 Blood Pressure 144/87 H 04/13/25 09:58 Pulse Oximetry (%) 95 04/13/25 09:58 Oxygen Delivery Method Room Air 04/13/25 09:58
[2025-04-13 10:47] VITALS: TEMP 38.5
[2025-04-13] MEDS: ACETAMINOPHEN 500 MG TABLET 1000 MG PO (10:47)
[2025-04-13 11:16] LABS: Lactate (Lactic Acid) 1.4 mMol/L (0.4-2.0)
[2025-04-13 11:21] LABS: Basophils # (Auto) 0.0 Thou/mm3 (0.0-0.2); Basophils % (Auto) 0 % (0-2.5); Eosinophils # (Auto) 0.3 Thou/mm3 (0.0-0.5); Eosinophils % (Auto) 4 % (0-10); Hematocrit 37.0 % (36.0-46.0); Hemoglobin 11.6 g/dL (12.0-16.0); Immature Granulocytes Auto 0.13 Thou/mm3 (0.00-0.00); Lymphocytes # (Auto) 1.4 Thou/mm3 (1.0-4.8); Lymphocytes % (Auto) 16 % (10-50); Mean Corpuscular HGB Conc 31.4 g/dl (31.0-37.0); Mean Corpuscular Hemoglobin 26.6 pg (25.0-35.0); Mean Corpuscular Volume 85 fL (80-100); Monocytes # (Auto) 0.9 Thou/mm3 (0.0-0.8); Monocytes % (Auto) 10 % (0-12); Neutrophils # (Auto) 6.2 Thou/mm3 (1.8-7.7); Neutrophils % (Auto) 70 % (37-80); Nucleated Red Blood Cell # 0.00 Thou/mm3 (0.00-0.00); Nucleated Red Blood Cell % 0 /100 WBC (0); Platelet Count 375 Thou/mm3 (140-440); RDW Standard Deviation 52.2 fL (36.4-46.3); Red Blood Count 4.36 Miln/mm3 (4.00-5.20); White Blood Count 8.9 Thou/mm3 (3.6-11.0)
[2025-04-13 11:26] VITALS: PULSE 94
[2025-04-13 11:33] LABS: B-Type Natriuretic Peptide 218 pg/mL (0-100)
[2025-04-13 11:43] LABS: Alanine Aminotransferase 22 U/L (10-49); Albumin, Serum 3.9 gm/dL (3.4-4.8); Albumin/Globulin Ratio 1.4 (1.2-2.2); Alkaline Phosphatase 120 U/L (46-116); Anion Gap 11 (7-16); Aspartate Amino Transferase 15 U/L (0-34); BUN/Creatinine Ratio 10 Ratio (12-20); Bilirubin,Total 0.4 mg/dL (0.3-1.2); Blood Urea Nitrogen 9 mg/dL (9-23); Calcium 9.5 mg/dL (8.3-10.6); Calcium (Corrected) 9.6 mg/dL (8.5-10.1); Carbon Dioxide 26.4 mMol/L (20.0-31.0); Chloride 103 mMol/L (98-107); Creatinine (Component) 0.9 mg/dL (0.6-1.3); Estimated Creatinine Clearance 96.5 mL/min (>60); Globulin 2.7 gm/dL (2.3-3.5); Glucose 100 mg/dL (74-106); Osmolality,Calculated 278 (275-295); Potassium 4.3 mMol/L (3.4-5.1); Procalcitonin 0.10 ng/ml (0.0-0.49); Sodium 140 mMol/L (136-145); Total Protein 6.6 gm/dL (5.7-8.2); Troponin I < 0.002 ng/mL (0.0-0.045); eGFR > 60 See Note
--- NOTE | 2025-04-13 11:49 | PD.EDSOB ---
ED SOB =RME/HPI General Chief Complaint: Arrhythmia/Palpitations Stated Complaint: + Covid, heart palpitations HR 167 Time Seen by Provider: 04/13/25 10:14 Arrival date/time: 04/13/25 09:49 RME / HPI RME / HPI Narrative: 04/13/25 09:49 This is a 60-year-old female that comes into the emergency room with complaints of shortness of breath and rapid heart rate. Patient does have a history of atrial fibrillation. Patient states her heart rate has gone up to the 160s recently. Patient is febrile in triage today. Patient states that she was recently diagnosed with COVID-19. Patient states the diagnosis was made about a week ago. Patient also has a history of hyperlipidemia and high blood pressure. I have greeted and performed a focused initial assessment of this patient. Initial appropriate labs ordered at this time. A comprehensive ED assessment and evaluation of the patient and analysis of all test and completion of medical decision making process will be conducted by additional ED provider. DR. MUÑOZ MAIN ED EVALUATION: 60-year-old female with a history of atrial fibrillation presents to the Emergency Department with shortness of breath, which began this morning. She also reports associated heart palpitations and elevated heart rate into the 160s at home. Patient was diagnosed with COVID on Tuesday. She has experienced intermittent fevers and chills over the past week. Denies chest pain or other systemic symptoms. Reports some improvement with inhaler use but wanted steroids; she attempted to make a clinic appointment to obtain steroids but was unable to secure one. She has a nebulizer machine at home. Related Data Home Medications ?Medication ?Instructions ?Recorded ?Confirmed atorvastatin 80 mg tablet 80 mg PO DAILY 09/07/24 09/07/24 diltiazem HCl 120 mg 120 mg PO DAILY 09/07/24 09/07/24 capsule,extended release 24 hr magnesium oxide 400 mg (241.3 mg 800 mg PO DAILY 09/07/24 09/07/24 magnesium) tablet Previous Rx's ?Medication ?Instructions ?Recorded albuterol sulfate 90 mcg/actuation 2 puff inhalation Q6H PRN 09/08/24 aerosol inhaler (Ventolin HFA) shortness of breath or wheezing #6.7 grams ciprofloxacin HCl 500 mg tablet 500 mg PO BID #14 tabs 09/08/24 metoprolol succinate 100 mg 100 mg PO BID 30 days #60 tabs 09/08/24 tablet,extended release 24 hr rivaroxaban 20 mg tablet (Xarelto) 20 mg PO QDAY 30 days #30 tabs 09/08/24 Allergies Allergy/AdvReac Type Severity Reaction Status Date / Time No Known Allergies Allergy Verified 04/13/25 09:53 Review of Systems Review of Systems Systems Reviewed: All systems reviewed, normal except as documented Past Medical History Past Medical History CARDIAC: Positive Atrial Fibrillation and Hypertension RESPIRATORY: Positive Asthma GENITOURINARY: Positive Renal Disease (STENT PLACEMENT AND STONE) and Kidney Stones Surgical History SURGICAL: Positive Cardiac Surgery, Coronary Stent, Abdominal Surgery and Tubal Ligation Social History SMOKING STATUS: Never smoker SUBSTANCE USE: does not use ALCOHOL: Never ED Exam Narrative Physical exam: GENERAL APPEARANCE: alert and oriented x 4, well-developed, well-nourished, obese VITALS: All vitals were reviewed and the pulse ox is 95% on room air, which is normal according to my interpretation. HEENT: Normocephalic, atraumatic; pupils equal, round, reactive to light; EOMI; mucous membranes pink, moist; oropharynx clear NECK: Supple LUNGS: decreased breath sounds bilaterally and wheezing throughout HEART: Regular rate, regular rhythm; normal S1, S2; no murmurs ABDOMEN: non distended; normal BS; soft, no tenderness, no guarding, no rebound; no masses, no organomegaly, no hernia BACK: no CVA tenderness EXTREMITIES: atraumatic; no edema NEUROLOGIC: awake; alert and oriented x4; cranial nerves II-XII grossly intact; no focal sensory or motor deficits PSYCHIATRIC: appropriate mood and affect SKIN: warm, dry, normal color; no rashes Course Quality Measures none Orders Category Date Time Status EKG (ED ONLY) *Do not use* NOW Care 04/13/25 10:15 Completed Insert IV NOW Care 04/13/25 11:49 Active EKG (ED Only) Stat Exams 04/13/25 10:15 Draft XR chest 1V Stat Exams 04/13/25 10:15 Completed BNP [B-Type Natriuretic Peptide] Stat Lab 04/13/25 11:07 Completed Blood Culture (Lab) Stat Lab 04/13/25 11:07 Received CBC Stat Lab 04/13/25 11:07 Completed Comprehensive Metabolic Panel Stat Lab 04/13/25 11:07 Completed Lactate (Lactic Acid) Stat Lab 04/13/25 11:07 Completed Procalcitonin Stat Lab 04/13/25 11:07 Completed Troponin I Stat Lab 04/13/25 11:07 Completed UA, C/S IF [Urinalysis, C/S if Indicated] Stat Lab 04/13/25 12:48 Received Acetaminophen Tab [Tylenol ES Tab] Med 04/13/25 10:15 Discontinued 1,000 mg PO X1 ONE Albuterol/Ipratr Rt Buffy [Duoneb Rt Buffy] Med 04/13/25 11:48 Discontinued 3 ml INH X1 ONE Dexamethasone Inj [Decadron Inj] Med 04/13/25 11:48 Discontinued 6 mg IVP X1 ONE Vital Signs Vital signs: Vital Signs Temperature 101.3 F H 04/13/25 09:58 Pulse Rate 109 H 04/13/25 09:58 Respiratory Rate 18 04/13/25 09:58 Blood Pressure 144/87 H 04/13/25 09:58 Pulse Oximetry (%) 95 04/13/25 09:58 Oxygen Delivery Method Room Air 04/13/25 09:58 Shortness of Breath / Dyspnea MDM Narrative MDM Narrative:: ISharla am scribing for and in the presence of Dr. Muñoz. Patient data External records reviewed:: [facility] previous records Clinical information provided by:: patient Social determinants that could affect healthcare access:: none Patient has the following chronic illnesses:: Atrial fibrillation and recently was diagnosed with COVID on Tuesday. How is presenting disease/condition affected by chronic disease/condition?: exacerbated by Evaluation data The following diagnostics were reviewed and interpreted by me:: lab results, radiology exam(s) and EKG tracing(s) Lab and/or radiology exams considered but not ordered:: none Interpretation Summary: My interpretation: EKG performed at 1043 hours, atrial fibrillation, rate 129, no acute ischemic changes Procedure(s): XR chest 1V Accession Number(s): [id number] cc: Mitul Truong MD; Jose Angel Chavez MD; Lily Steele NP~ Examination: AP chest single view Technique one AP portable upright chest single view Date and time: April 13, 2025, 11:16 PM, comparison September 04, 2024. Indications: Chest pain beginning 2 days ago. Findings: Mild enlargement cardiac contour. Mild vascular congestion. Minor atelectasis in the lower lung zones. No lobar pneumonia or pulmonary edema. Impression: Mild enlargement cardiac contour. Mild vascular congestion. Dictated By: Jose Angel Chavez MD Medications / Prescriptions Medications or Prescriptions considered but not ordered:: none Medication administrations:: Medication Administration History Discontinued Medications Acetaminophen (Acetaminophen 500 Mg Tablet) 1,000 mg PO X1 ONE Stop: 04/13/25 10:16 Last Admin: 04/13/25 10:47 Dose: 1,000 mg Documented By: TAZ Albuterol/Ipratropium (Albuterol/Ipratropium (Duoneb) Rt Buffy 3 Ml Nebu) 3 ml INH X1 ONE Stop: 04/13/25 11:49 Last Admin: 04/13/25 12:11 Dose: 3 ml Documented By: MARY ALICE Comments: covid pt Dexamethasone Sodium Phosphate (Dexamethasone Sod Phos Inj 10 Mg/Ml Vial) 6 mg IVP X1 ONE Stop: 04/13/25 11:49 Last Admin: 04/13/25 11:55 Dose: 6 mg Documented By: TAZ see above Consultations Consultation(s) initiated? (list below): No Diagnosis Shortness of Breath Differential Diagnosis: other (Acute COVID-19 exacerbation, atrial fibrillation with rapid ventricular response, and viral bronchitis.) Most likely diagnosis given after review of the tests above:: COVID-19 Atrial fibrillation Fever Admission Indicated Admission indicated?: not indicated Admission Request Was there a request for admission?: No Disposition Plan Disposition Plan: Discharge Discharge Attestation Discharge Attestation: The patient and all family members were given an opportunity to ask questions and understood the discharge instructions. Discharge instructions specifically effects, indications for sooner follow up or return to the emergency department, and the expected course of current diagnosis. Patient condition: Stable Discharge Plan Plan Patient Disposition: HOME (Self Care) Prescriptions/Referrals Prescriptions/Med Rec: No Action atorvastatin 80 mg tablet 80 mg PO DAILY Patient Comments: TAKE 1 TABLET BY MOUTH ONCE DAILY magnesium oxide 400 mg (241.3 mg magnesium) tablet 800 mg PO DAILY Patient Comments: TAKE 2 TABLETS BY MOUTH ONCE DAILY FOR 14 DAYS Rx Instructions: for 14 days diltiazem HCl 120 mg capsule,extended release 24hr 120 mg PO DAILY Patient Comments: TAKE 1 CAPSULE BY MOUTH ONCE DAILY metoprolol succinate 100 mg tablet extended release 24 hr 100 mg PO BID 30 Days Qty: 60 3RF Xarelto 20 mg tablet 20 mg PO QDAY 30 Days Qty: 30 3RF ciprofloxacin HCl 500 mg tablet 500 mg PO BID Qty: 14 0RF albuterol sulfate [Ventolin HFA] 90 mcg/actuation HFA aerosol inhaler 2 puff inhalation Q6H PRN (Reason: shortness of breath or wheezing) Qty: 6.7 2RF Referrals: Mitul Truong MD [Primary Care Provider] - In 1 week Problem List Clinical Impression: COVID-19, Atrial fibrillation, Fever Patient/Caregiver Discharge Instructions Education Materials: COVID-19 Home Care Print Language: Citizen Of [place] Stand Alone Forms: Isabel Award Info., Patient Portal Info Letter
[2025-04-13] MEDS: DEXAMETHASONE SOD PHOS INJ 10 MG/ML VIAL 6 MG IVP (11:55)
[2025-04-13 11:59] VITALS: BP 102/79; PULSE 96; RESP 18; TEMP 37.1; TEMP 37.7; O2SAT 95
[2025-04-13 12:00] VITALS: PULSE 108; RESP 21; O2SAT 98
[2025-04-13] MEDS: ALBUTEROL/IPRATROPIUM (Duoneb) RT SOL 3 ML NEBU INH (12:11)
[2025-04-13 12:58] LABS: Collection Type, Urine Clean Catch
[2025-04-13 13:25] VITALS: BP 132/101; PULSE 98; RESP 18; TEMP 37.1; O2SAT 96
[2025-04-13 13:32] LABS: Amorphous Crystals,Urine Present (Absent); Bacteria,Urine 3+; Bilirubin,Urine Negative (Negative); Blood,Urine 3+ (Negative); Culture Indicated,Urine Contaminated; Glucose, Urine Negative (Negative); Ketones,Urine Negative (Negative); Leukocyte Esterase,Urine Positive (Negative); Nitrite,Urine Positive (Negative); PH,Urine 8.0 (5.0-7.0); Protein,Urine 2+ (Neg - Trace); RBC,Urine 1473 /hpf (0-3); Specific Gravity,Urine 1.014 (1.001-1.035); Squamous Epithelial Cell,Urine 18 /hpf (0-5); Transitional Epi Cells,Urine 1 /hpf (0-5); Urobilinogen,Urine Negative mg/dL (0.0-1.0); WBC,Urine 308 /hpf (0-5)
[2025-04-13 13:35] LABS: Clarity,Urine Turbid (Clear/Hazy); Color,Urine Yellow (Lt Yel-Yel)
== END 2025-04-13 13:23 | disposition home or self-care (01) ==
PROVIDERS: Nurse Practitioner Family; Emergency Provider Emergency Medicine; PCP Family Medicine
DX: I48.91 Unspecified atrial fibrillation (principal); U07.1 COVID-19; I51.7 Cardiomegaly
CPT/HCPCS: 36415; 71045; 80053; 81001; 83605; 83880; 84145; 84484; 85025; 87040; 93005; 94640; 96374; 99283; A9270; J1100

== ENCOUNTER 2025-05-13 12:15 | Emergency (ER) | payer MEDICAID, SELFPAY ==
[2025-05-13 12:15] VITALS: BMI 58.4
--- NOTE | 2025-05-13 12:58 | XR_ITS ---
Examination: Shoulder,left, 3 views Technique: Shoulder AP internal rotation, AP external rotation, Y view shoulder, 3 views Exam date and time :May 13, 2025 1308 hours INDICATIONS: Left shoulder pain beginning this week. FINDINGS: Moderate osteopenia. Moderate narrowing glenohumeral joint Mild left shoulder calcific tendinitis No fracture or shoulder dislocation IMPRESSION: Mild narrowing glenohumeral joint Mild left shoulder calcific tendinitis
--- NOTE | 2025-05-13 12:58 | XR_ITS ---
Examination: Cervical spine 4 views TECHNIQUE: AP, lateral, swimmer's lateral, AP odontoid cervical spine 4 views Date and time: May 13, 2025 1309 hours INDICATIONS: Neck pain beginning 3 days ago. FINDINGS: Limited study secondary to patient's size There is no diagnostic visualization of the C6 and C7 vertebral bodies No visualized cervical fracture The odontoid is intact IMPRESSION: Consider CT scan cervical spine without contrast follow-up for diagnostic assessment of the cervical spine
[2025-05-13 13:00] VITALS: BP 144/83; PULSE 91; RESP 18; TEMP 36.8; O2SAT 96
--- NOTE | 2025-05-13 13:39 | XR_ITS ---
Examination: CT cervical spine without contrast 2-D sagittal reconstructions 2-D coronal reconstructions 3-D reconstructions. Exam date and time:May 13, 2025 1456 hours INDICATIONS: Left-sided neck pain radiating to left shoulder today CTDI:vol (mGy) 23.5 DLP: (mGycm) 554 Technique: Multiple 2 mm axial sections of the cervical spine have been obtained. The coronal and sagittal reconstructions have been obtained. 3-D reconstructions have been obtained. Low dose protocols were performed. One or more of the following dose reduction techniques were used; automated exposure control, adjustment of the mA and/or KV according to patient size, use of iterative reconstruction technique. Findings: Axial sections demonstrate intact base of the skull. C1 exhibit satisfactory relationship to the odontoid. No acute cervical vertebral body fracture seen. Alignment posterior spinous processes satisfactory. Moderate disc narrowing C5-C6 C5-C6 mild to moderate right neural foraminal stenosis Impression: No acute cervical fracture. Moderate degenerative disc disease C5-C6 C5-C6 mild to moderate right neural foraminal stenosis ELECTIVE MRI cervical spine without contrast follow-up would be preferable in assessing for acquired soft tissue spinal stenosis
[2025-05-13] MEDS: DEXAMETHASONE SOD PHOS INJ 10 MG/ML VIAL IM (13:59)
[2025-05-13] MEDS: KETOROLAC INJ 60 MG/2 ML VIAL 30 MG IM (14:01)
[2025-05-13] MEDS: HYDROcodone/APAP 5/325 TABLET 1 TAB PO (14:01)
--- NOTE | 2025-05-13 15:38 | PD.EDEXREM ---
ED Extremity Problem RME/HPI General Chief complaint: Extremity Problem,Nontraumatic Stated complaint: LEFT SHOULDER PAIN x FEW MONTHS Time Seen by Provider: 05/13/25 12:37 Arrival date/time: 05/13/25 12:15 This is a case of 60-year-old female who came in in the emergency room due to left shoulder pain for 6 months worse today radiating to the left side of the neck patient denies any injury or trauma denies any numbness weakness tingling sensation denies any incontinence to urine or stool persistence of the symptoms this patient decided to sought consult here in the emergency room Limitations: no limitations Related Data Home Medications ?Medication ?Instructions ?Recorded ?Confirmed atorvastatin 80 mg tablet 80 mg PO DAILY 09/07/24 09/07/24 diltiazem HCl 120 mg 120 mg PO DAILY 09/07/24 09/07/24 capsule,extended release 24 hr magnesium oxide 400 mg (241.3 mg 800 mg PO DAILY 09/07/24 09/07/24 magnesium) tablet Previous Rx's ?Medication ?Instructions ?Recorded albuterol sulfate 90 mcg/actuation 2 puff inhalation Q6H PRN 09/08/24 aerosol inhaler (Ventolin HFA) shortness of breath or wheezing #6.7 grams ciprofloxacin HCl 500 mg tablet 500 mg PO BID #14 tabs 09/08/24 metoprolol succinate 100 mg 100 mg PO BID 30 days #60 tabs 09/08/24 tablet,extended release 24 hr rivaroxaban 20 mg tablet (Xarelto) 20 mg PO QDAY 30 days #30 tabs 09/08/24 baclofen 10 mg tablet 10 mg PO BID PRN muscle spasm #10 05/13/25 tabs tramadol 50 mg tablet 50 mg PO Q8H PRN pain #10 tabs 05/13/25 Allergies Allergy/AdvReac Type Severity Reaction Status Date / Time No Known Allergies Allergy Verified 05/13/25 12:17 Review of Systems Review of Systems Systems Reviewed: All systems reviewed, normal except as documented Constitutional Constitutional: Reports system reviewed and no additional complaints, except as documented and Reports as per HPI Cardiovascular Cardiovascular: Reports system reviewed and no additional complaints, except as documented and Reports as per HPI Respiratory Respiratory: Reports system reviewed and no additional complaints, except as documented and Reports as per HPI Gastrointestinal Gastrointestinal: Reports system reviewed and no additional complaints, except as documented and Reports as per HPI Genitourinary Genitourinary: Reports system reviewed and no additional complaints, except as documented and Reports as per HPI Neurologic Neurologic: Reports system reviewed and no additional complaints, except as documented and Reports as per HPI Past Medical History Past Medical History CARDIAC: Positive Atrial Fibrillation and Hypertension; Negative Congestive Heart Failure RESPIRATORY: Positive Asthma; Negative Chronic Obstructive Pulmonary Disease (COPD) GENITOURINARY: Positive Renal Disease (STENT PLACEMENT AND STONE) and Kidney Stones ENDOCRINE: Negative Diabetes Mellitus Type 1 or Diabetes Mellitus Type 2 Surgical History SURGICAL: Positive Cardiac Surgery, Coronary Stent, Abdominal Surgery and Tubal Ligation Social History SMOKING STATUS: Never smoker SUBSTANCE USE: does not use ED Exam General Limitations: Present no limitations General appearance: Present alert, in no apparent distress and other (Is awake alert oriented not in distress nontoxic looking well-hydrated well-nourished) Head Head exam: Present atraumatic, normocephalic and normal inspection Eye Eye exam: Present normal appearance, PERRL and EOMI ENT ENT exam: Present normal exam, normal oropharynx and mucous membranes moist Neck Neck exam: Present normal inspection, full ROM, trachea midline and tenderness (Mild tenderness on the left side posteriorly of the neck no crepitation no deformity no redness no swelling no paraspinal no paravertebral tenderness ROM intact neurovascular intact); Absent meningismus or lymphadenopathy Chest Chest inspection: Present normal inspection and symmetric chest wall rise; Absent tenderness Respiratory Respiratory exam: Present normal lung sounds bilaterally; Absent respiratory distress, wheezes, stridor, accessory muscle use or prolonged expiratory phase Cardiovascular Cardiovascular exam: Present regular rate, normal rhythm and normal heart sounds; Absent bradycardia, tachycardia, irregular rhythm, systolic murmur or diastolic murmur Abdominal Exam Abdominal exam: Present soft and normal bowel sounds Extremities Exam Extremities exam: Present normal inspection and full ROM Expanded Upper Extremity Exam Shoulder exam: Present tenderness (Noted moderate tenderness on the left shoulder deltoid area mild swelling no crepitation no deformity no redness no swelling ROM intact neurovascular intact); Absent swelling, abrasion, laceration, ecchymosis, deformity, crepitus, dislocation, erythema or tenderness over AC joint Arm exam: Present normal inspection and full ROM; Absent tenderness or swelling Elbow exam: Present normal inspection and full ROM; Absent tenderness or swelling Forearm/Wrist exam: Present normal inspection and full ROM; Absent tenderness or swelling Hand exam: Present normal inspection and full ROM; Absent tenderness or swelling Back Exam Back exam: Present normal inspection and full ROM; Absent tenderness, CVA tenderness (R), CVA tenderness (L), muscle spasm, paraspinal tenderness, vertebral tenderness, rashes, sciatic notch tenderness (R), sciatic notch tenderness (L), straight leg raise (R) or straight leg raise (L) Neurological Exam Neurological exam: Present alert, oriented X3, CN II-XII intact, normal gait and reflexes normal; Absent motor sensory deficit Psychiatric Psychiatric exam: Present normal affect and normal mood Skin Skin exam: Present warm, dry, intact and normal color Course Quality Measures none Orders Category Date Time Status sling [Splint / Immobilizer] STAT Care 05/13/25 12:[address] cervical spine wo con Stat Exams 05/13/25 13:39 Completed XR cervical spine 2-3V Stat Exams 05/13/25 12:58 Completed XR shoulder LT min 2V Stat Exams 05/13/25 12:58 Completed Dexamethasone Inj [Decadron Inj] Med 05/13/25 12:58 Discontinued 10 mg IM X1 ONE HYDROcodone*/APAP 5/325 [[place] 5/325] Med 05/13/25 12:58 Discontinued 1 tab PO X1 ONE Ketorolac Inj [Toradol Inj] Med 05/13/25 12:58 Discontinued 30 mg IM X1 ONE Vital Signs Vital signs: Vital Signs Temperature 98.3 F 05/13/25 13:00 Pulse Rate 91 05/13/25 13:00 Respiratory Rate 18 05/13/25 13:00 Blood Pressure 144/83 H 05/13/25 13:00 Pulse Oximetry (%) 96 05/13/25 13:00 Oxygen Delivery Method Room Air 05/13/25 13:00 Oxygen saturation is 96% on room air Extremity Problem MDM Narrative MDM Narrative:: This is a case of 60-year-old female who came in in the emergency room due to left shoulder pain for 6 months worse today radiating to the left side of the neck patient denies any injury or trauma denies any numbness weakness tingling sensation denies any incontinence to urine or stool persistence of the symptoms this patient decided to sought consult here in the emergency room physical examination patient is awake alert oriented not in distress nontoxic looking well-hydrated well-nourished there is mild to moderate tenderness around the left shoulder deltoid area with mild swelling no crepitation no deformity no redness no cellulitis ROM is limited due to pain neurovascular is intact patient denies any pain in the left arm left elbow or left wrist patient sustained a pain on the left neck exam showed mild to moderate tenderness on the left side of the neck no crepitation no deformity no redness no cellulitis ROM is intact neurovascular intact no paravertebral tenderness no paraspinal tenderness with mild spasm the rest of the physical examination and neurological exam is normal and unremarkable x-ray of the left shoulder and left neck showed a calcific tendinitis CT showed DDD of the cervical at this point patient was given dexamethasone Toradol and [place] which improved and resolved the pain I do not think patient have cauda equina patient will follow-up with PCP in 2 days for reevaluation and to be referred to neurosurgeon for DDD cervical and Ortho for calcific tendinitis of the left shoulder and pain management doctor for pain control for any recurrence persistent worsening symptoms return precaution to the ER is advised patient was prescribed tramadol and baclofen as needed for pain Patient was discharged with comfortable condition walking with stable gait. Patient verbalized no further complains explained diagnosis and answered patient question. Patient is comfortable with the proposed management plan including the need to follow up with his/her primary care physician and any specialist if applicable Discussed patient for any urgent condition or worsening sx, He/She needed to go to emergency room immediately or call 911. Patient acknowledge the responsibility to follow up as instructed and to monitor her/his symptoms. For any persistence of the symptoms for more than 3-5 days return precaution advised. Discussed the result of the test and was given printed discharge instruction Patient data External records reviewed:: [facility] previous records Clinical information provided by:: patient Social determinants that could affect healthcare access:: none Patient has the following chronic illnesses:: None How is presenting disease/condition affected by chronic disease/condition?: no chronic disease Evaluation data The following diagnostics were reviewed and interpreted by me:: radiology exam(s) Lab and/or radiology exams considered but not ordered:: Reviewed Interpretation Summary: Reviewed Medications / Prescriptions Medications or Prescriptions considered but not ordered:: Given Medication administrations:: Medication Administration History Discontinued Medications Hydrocodone Bitart/Acetaminophen (Hydrocodone/Apap 5/325 Tablet) 1 tab PO X1 ONE Stop: 05/13/25 12:59 Last Admin: 05/13/25 14:01 Dose: 1 tab Documented By: Dexamethasone Sodium Phosphate (Dexamethasone Sod Phos Inj 10 Mg/Ml Vial) 10 mg IM X1 ONE Stop: 05/13/25 12:59 Last Admin: 05/13/25 13:59 Dose: 10 mg Documented By: Ketorolac Tromethamine (Ketorolac Inj 60 Mg/2 Ml Vial) 30 mg IM X1 ONE Stop: 05/13/25 12:59 Last Admin: 05/13/25 14:01 Dose: 30 mg Documented By: Given Consultations Consultation(s) initiated? (list below): No Diagnosis Extremity Problem Differential Diagnosis: other (Left shoulder pain left neck pain) Most likely diagnosis given after review of the tests above:: Calcific tendinitis of the left shoulder DDD cervical Admission Indicated Admission indicated?: not indicated Explain why admission is indicated or not indicated:: Not indicated Admission Request Was there a request for admission?: No Disposition Plan Disposition Plan: Discharge Discharge Attestation Discharge Attestation: The patient and all family members were given an opportunity to ask questions and understood the discharge instructions. Discharge instructions specifically effects, indications for sooner follow up or return to the emergency department, and the expected course of current diagnosis. Patient condition: Stable Discharge Plan Plan Patient Disposition: HOME (Self Care) Patient condition on transfer: Stable Prescriptions/Referrals Prescriptions/Med Rec: New tramadol 50 mg tablet 50 mg PO Q8H MDD max 4 tabs per day PRN (Reason: pain) Qty: 10 0RF baclofen 10 mg tablet 10 mg PO BID PRN (Reason: muscle spasm) Qty: 10 0RF No Action atorvastatin 80 mg tablet 80 mg PO DAILY Patient Comments: TAKE 1 TABLET BY MOUTH ONCE DAILY magnesium oxide 400 mg (241.3 mg magnesium) tablet 800 mg PO DAILY Patient Comments: TAKE 2 TABLETS BY MOUTH ONCE DAILY FOR 14 DAYS Rx Instructions: for 14 days diltiazem HCl 120 mg capsule,extended release 24hr 120 mg PO DAILY Patient Comments: TAKE 1 CAPSULE BY MOUTH ONCE DAILY metoprolol succinate 100 mg tablet extended release 24 hr 100 mg PO BID 30 Days Qty: 60 3RF Xarelto 20 mg tablet 20 mg PO QDAY 30 Days Qty: 30 3RF ciprofloxacin HCl 500 mg tablet 500 mg PO BID Qty: 14 0RF albuterol sulfate [Ventolin HFA] 90 mcg/actuation HFA aerosol inhaler 2 puff inhalation Q6H PRN (Reason: shortness of breath or wheezing) Qty: 6.7 2RF Referrals: Mitul Truong MD [Primary Care Provider, Family Practice] - In 1 week Problem List Clinical Impression: Muscle spasms of neck, Calcific tendinitis of left shoulder, DDD (degenerative disc disease), cervical Patient/Caregiver Discharge Instructions Education Materials: ED Degenerative Disk Disease, ED Neck Spasm, No Trauma, ED Sling, ED Tendonitis, ED RICE Additional Instructions: Follow-up with your primary care physician in 2 days for reevaluation and to be referred to neurosurgeon for further evaluation and treatment of DDD cervical for possible MRI to rule out herniated disc he also need to see an orthopedic surgeon for your calcific tendinitis of the left shoulder pain management for pain control recurrence persistent worsening symptoms or any emergent concerns such as numbness weakness tingling sensation incontinence to urine or stool call 911 or go to the nearest emergency room take medication as directed do not take [place] and baclofen at the same time ice pack and warm compress as needed for pain keep the sling in place until cleared by your primary care physician Print Language: Nepali Stand Alone Forms: Isabel Award Info., Patient Portal Info Letter PA/[employer] Supervising Physician PA/[employer] Supervising Physician: [email or web address]
== END 2025-05-13 17:04 | disposition home or self-care (01) ==
PROVIDERS: Emergency Provider Emergency Medicine; PCP Family Medicine
DX: M75.32 Calcific tendinitis of left shoulder (principal); M50.322 Other cervical disc degeneration at C5-C6 level; M62.838 Other muscle spasm
CPT/HCPCS: 72040; 72050; 72125; 73030; 93041; 96372; 99284; J1100; J1885; A9270

== ENCOUNTER → 2025-07-10 | Outpatient (CLI) | payer MEDICAID, SELFPAY ==
--- NOTE | 2025-07-10 15:52 | XR_ITS ---
Examination: Abdomen AP single view Technique: AP portable supine abdomen, single view Exam date and time: July 10, 2025, 1618 hours INDICATIONS: History flank pain kidney stones, post ureteral stent placement July 2024 FINDINGS: Right ureteral stent satisfactory position 16 mm proximal right ureteral calculus Calcification adjacent to the stent in the urinary bladder IMPRESSION: 16 mm proximal right ureteral calculus Calcification in the lower end of the stent in the urinary bladder
== END | disposition home or self-care (01) ==
LOC: CDIM 15:28
PROVIDERS: PCP Registered Nurse Pediatrics; Referring Provider Surgery; Visit Provider Surgery
DX: N20.1 Calculus of ureter (principal); N32.89 Other specified disorders of bladder
CPT/HCPCS: 74018